=== PATIENT | female | born 1965 | race Caucasian/White ===

== ENCOUNTER → 2017-07-13 | Outpatient (CLI) | payer OTHER ==
--- NOTE | 2017-07-14 07:58 | MAMMOGRAPHY REPORT ---
BILATERAL DIGITAL SCREENING MAMMOGRAM TOMOSYNTHESIS WITH CAD: 07/13/2017 CLINICAL HISTORY: Routine screening. TECHNIQUE: Breast tomosynthesis in addition to standard 2D mammography was performed. Current study was also evaluated with a Computer Aided Detection (CAD) system. COMPARISON: Comparison is made to exams dated: 10/16/2015 mammogram, 09/06/2014 mammogram, 08/29/2013 mammogram, 08/24/2012 mammogram, 11/04/2010 mammogram - [facility], and 02/26/2009. BREAST COMPOSITION: There are scattered areas of fibroglandular density in both breasts. FINDINGS: There is a stable intramammary lymph node in the 9:00 right breast. No suspicious mass, a rchitectural distortion or cluster of microcalcifications is seen. IMPRESSION: ACR BI-RADS CATEGORY 1: NEGATIVE There is no mammographic evidence of malignancy. A 1 year screening mammogram is recommended. The pa tient will receive written notification of the results. Approximately 10% of breast cancers are not detected with mammography. A negative mammographic report should not delay biopsy if a clinically suggestive mass is present. Viky Clemons M.D. ay/:07/13/2017 21:11:34 Labor Relations Teacher: Tonya DUBOSE(Kenn)(Wendy), [facility] letter sent: Normal 1/2 BI-RADS Code: ACR BI-RADS Category 1: Negative
== END | disposition home or self-care (01) ==
LOC: C.MAMM 13:48
PROVIDERS: ATTEND Obstetrics & Gynecology
DX: Z12.31 Encounter for screening mammogram for malignant neoplasm of breast (principal)

== ENCOUNTER 2023-05-19 20:43 | Inpatient (IN) ==
[2023-05-19] MEDS ORDERED: FAMOTIDINE 20MG IV PUSH 20 MG/5 ML SYR IV STA (21:01)
[2023-05-19] MEDS ORDERED: PROMETHAZINE 12.5 MG/50.5 ML BAG IV STA (21:01)
[2023-05-19] MEDS ORDERED: diphenhydrAMINE 50 MG/ML VIAL IV STA (21:01)
[2023-05-19] MEDS ORDERED: SODIUM CHLORIDE 0.9% 1,000 ML IV ONE (21:02)
--- NOTE | 2023-05-19 21:10 | Emergency Department Note ---
Impression & Plan Malrotation of intestine with midgut volvulus, Generalized abdominal pain, Intractable nausea and vomiting ED Provider Note NAME: TYRON RAY AGE: 57 SEX: F ARRIVES VIA: Ambulance INFORMANT: Patient ED PROVIDER(S): Sarath Britton MD CHIEF COMPLAINT: Abdominal pain, n/v. PLAN: Disposition: Admit MEDICAL DECISION MAKING: The patient is a pleasant 57-year-old woman with a past medical history of PCOS, migraines, hypertension, anxiety, lupus who presents to the emergency department via EMS and accompanied by her for evaluation of acute onset abdominal pain with associated nausea and vomiting that occurred after eating ice cream tonight prior to arrival. Patient received 4 mg of Zofran and 15 mg of Toradol by EMS without improvement. Patient reports feeling well prior to this evening. She denies any recent fevers, cough, congestion, diarrhea. She has any urinary symptoms. She reports a history of section remotely and otherwise no history of abdominal surgeries. Patient reports she did move her bowels after her abdominal pain began and this was normal and anticipated she would feel relief but did not. She denies prior history of similar episodes in the past. On my evaluation the patient is uncomfortable but no acute distress, afebrile stable vital signs. She appears clinically dry. She has generalized abdominal tenderness without guarding or rebound. Treatment was initiated with IV fluid hydration, famotidine, Phenergan and IV Benadryl with some improvement in ability to rest. Pain had returned prior to CT imaging and so additional treatment with Phenergan and dicyclomine provided. EKG is without overt acute ischemia. Chest x-ray negative for acute cardiopulmonary process and no free air underneath the diaphragm. WBC 12.6 K, with neutrophil predominance though no left shift nonspecific. H/H and platelets within normal limits. Chemistry with bicarbonate of 19 and anion gap 14, nonspecific consistent with patient's clinically dry appearance. LFTs are within normal limits. Lipase is marginally above normal at 86, nonspecific. UA without evidence of infection but with 1+ ketones consistent with patient's clinically dry appearance. CT of the abdomen pelvis was performed and demonstrates congenital malrotation/nonrotation of the bowel and note of marked distention of the stomach secondary to a midgut volvulus with inflammation surrounding the distal stomach with wall thickening concerning for ischemia though nonspecific. CT findings were reviewed with stat rad radiology. Findings reviewed with the patient and her at the bedside. IV fluid hydration and IV morphine were administered for additional pain relief. Nasogastric tube reviewed with the patient and agrees with placement. Case was discussed with general surgery on-call, Dr. Ricci. Appreciate consultation. Patient will be taken to the OR for surgical intervention. Triage Nursing notes reviewed and agree them. Prior/outside medical records reviewed Vital Signs: reviewed Differential diagnosis: Gastroenteritis, food borne illness, infections, appendicitis, diverticulitis, inflammatory bowel disease, obstruction, GI bleed, biliary pathology, volvulus, as well as other pathologies. ER treatment provided: See below. Diagnostics interpreted by me: ECG: Normal sinus rhythm, 83 bpm, no ectopy, no overt ST elevation or depression, QTc 488, QRS 76. Cardiac Monitoring: An order for continuous cardiac monitoring was placed and demonstrated Normal sinus rhythm, 83 bpm, no ectopy. Laboratory studies: See below Imaging studies: See below Consultation(s): Dr. Ricci, general surgery on-call. HPI: The patient is a pleasant 57-year-old woman with a past medical history of PCOS, migraines, hypertension, anxiety, lupus who presents to the emergency department via EMS and accompanied by her for evaluation of acute onset abdominal pain with associated nausea and vomiting that occurred after eating ice cream tonight prior to arrival. Patient received 4 mg of Zofran and 15 mg of Toradol by EMS without improvement. Patient reports feeling well prior to this evening. She denies any recent fevers, cough, congestion, diarrhea. She has any urinary symptoms. She reports a history of section remotely and otherwise no history of abdominal surgeries. Patient reports she did move her bowels after her abdominal pain began and this was normal and anticipated she would feel relief but did not. She denies prior history of similar episodes in the past. ROS: See above HPI for pertinent positives & negatives. A total of 10 systems reviewed and were otherwise negative. VITALS:See Below PHYSICAL EXAMINATION: GENERAL: Awake, alert, uncomfortable-appearing, in no distress HENT: Normocephalic, atraumatic. Oropharynx with dry mucous membranes and otherwise unremarkable. EYES: Normal conjunctiva. Sclera non-icteric. NECK: Supple. No nuchal rigidity. FROM. No JVD. RESPIRATORY: Clear to auscultation. CARDIAC: Regular rate, normal rhythm. Extremities warm and well perfused. Pulses equal. ABDOMEN: Soft, non-distended. Mild generalized abdominal tenderness to palpation. No rebound or guarding. No masses. RECTAL: Deferred. MUSCULOSKELETAL: Chest examination reveals no tenderness. The back is symmetrical on inspection without obvious abnormality. There is no CVA tenderness to palpation. No joint edema. LOWER EXTREMITIES: Calves are equal size bilaterally and non-tender. No edema. No discoloration. NEURO: Normal sensorium. No sensory or motor deficits noted. SKIN: No rash or jaundice noted. ED COURSE: Critical Care: I have personally spent greater than 35 minutes of critical care time in the direct management of this patient. This includes bedside care, interpretation of diagnostic studies, and testing, discussion with consultants, patient, and family members, and other required patient management activities. This 35 minutes is in excess of all separately billable procedures. Sarath Britton MD Past Med/Surg History Medical History Cellulitis of right lower leg Hypertension Surgical History History of section History of tooth extraction WISDOM TEETH S/P laser trabeculoplasty of eye BILT EYES Family History Sister Family history of irritable bowel syndrome CROHNS Crohn's disease Vascular access prohibited in both lower extremities Family/Other Family history of irritable bowel syndrome MATERNAL AUNT CROHN'S Family/Other Family history of irritable bowel syndrome MATERNAL COUSINS CROHN'S DISEASE Grandmother (Maternal) Myocardial infarction Mother Lung cancer Father Basal cell carcinoma Melanoma Dementia Vascular access prohibited in both lower extremities Brother Meniere disease Vascular access prohibited in both lower extremities Denies family history of Colon cancer Ovarian cancer Prostate cancer Breast cancer Social History Smoking Status: Smoker, status unknown Second Hand Exposure: No (MOTHER SMOKED); Do You Dip or Chew Tobacco: No; Hx Alcohol Use: Yes Alcohol type: wine Alcohol Intake Frequency: Monthly or Less Hx Substance Use: No Preferred Language: [place] Communication Ability: Effective Visual Impairment: No Limitations Hearing Ability: Hard of Hearing Soil Fertility Specialist Required: No Beliefs That Will Affect Care: None marital status: Current Living Situation: Spouse and Family current occupational status: employed 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 How many Children do You have: 1 Feels Safe at Home: Yes Childhood Exposure to Second-Hand Smoke: Yes Diet: regular Diet Comment: Low sugar caffeine: Yes during the past year weight has: remained stable Dental Care, Regularly: Yes Physical Activity Frequency: Daily Seatbelt Use: always Sunscreen Use: Yes Assistive Devices: Glasses Allergies Allergies Allergy/AdvReac Type Severity Reaction Status Date / Time cephalexin [From Keflex] Allergy Intermediate Hives Verified 05/19/23 21:20 red dye Allergy Intermediate Hives Verified 05/19/23 21:20 Sulfa (Sulfonamide Allergy Intermediate Hives Verified 05/19/23 21:20 Antibiotics) thimerosal Allergy Mild ITCHY, RED Verified 05/19/23 21:20 EYES Home Meds Home Medications Medication Instructions Recorded Confirmed nystatin-triamcinolone 100,000 1 applic topical BID PRN Itching 06/03/1804/22 unit/gram-0.1 % topical ointment omega 9-gpg-who-fish oil 1,000 mg 1 tab PO QPM 06/03/18 05/19/23 (120 mg-180 mg) capsule (Fish Oil) albuterol sulfate 90 mcg/actuation 1 - 2 puff inhalation Q4 PRN 02/20/19 05/19/23 aerosol inhaler (ProAir HFA) Shortness Of Breath Or Wheezing metformin 500 mg tablet 500 mg PO TID 05/19/23 05/19/23 Previous Rx's Medication Instructions Recorded venlafaxine 75 mg tablet 75 mg PO BID Anxiety #180 tabs 11/18/22 spironolactone 50 mg tablet 50 mg PO .COMPLEX #90 tabs 03/24/23 Results & Data (ED) Vital Signs Vital Signs - 24 hr 05/19/23 20:53 05/19/23 20:54 05/19/23 22:10 Pulse Rate 70 70 Pulse Rate [Apical] 77 Pulse Rate from SpO2 Sensor Pulse Rhythm Pulse Rhythm [Apical] Regular Pulse Strength [Apical] Normal Respiratory Rate 18 17 Respiratory Effort / Characteristics Non-Labored Non-Labored Spontaneous Respiratory Depth Normal Normal Blood Pressure 109/72 Blood Pressure [Right Arm] 109/72 Blood Pressure Mean 84 Blood Pressure Mean [Right Arm] 84 Blood Pressure Position [Right Arm] Lying Pulse Oximetry 96 100 Oxygen Delivery Method Room Air Room Air Sepsis Recent Fever Within 48 Hours No Sepsis New/Unexplained Change in Mental Status No Sepsis Action Taken by Nursing No Action Required 05/19/23 22:10 05/19/23 20:54 05/19/23 21:00 Pulse Rate 78 68 75 Pulse Rate [Apical] Pulse Rate from SpO2 Sensor Pulse Rhythm Regular Pulse Rhythm [Apical] Pulse Strength [Apical] Respiratory Rate 17 25 H 19 Respiratory Effort / Characteristics Respiratory Depth Blood Pressure Blood Pressure [Right Arm] Blood Pressure Mean Blood Pressure Mean [Right Arm] Blood Pressure Position [Right Arm] Pulse Oximetry 100 Oxygen Delivery Method Room Air Sepsis Recent Fever Within 48 Hours Sepsis New/Unexplained Change in Mental Status Sepsis Action Taken by Nursing 05/19/23 21:30 05/19/23 22:00 05/19/23 22:37 Pulse Rate 88 78 71 Pulse Rate [Apical] Pulse Rate from SpO2 Sensor 88 79 Pulse Rhythm Pulse Rhythm [Apical] Pulse Strength [Apical] Respiratory Rate 18 24 19 Respiratory Effort / Characteristics Respiratory Depth Blood Pressure Blood Pressure [Right Arm] Blood Pressure Mean Blood Pressure Mean [Right Arm] Blood Pressure Position [Right Arm] Pulse Oximetry 97 100 Oxygen Delivery Method Sepsis Recent Fever Within 48 Hours Sepsis New/Unexplained Change in Mental Status Sepsis Action Taken by Nursing 05/19/23 23:00 05/19/23 23:39 05/20/23 00:00 Pulse Rate 70 75 71 Pulse Rate [Apical] Pulse Rate from SpO2 Sensor 70 75 68 Pulse Rhythm Pulse Rhythm [Apical] Pulse Strength [Apical] Respiratory Rate 15 17 15 Respiratory Effort / Characteristics Respiratory Depth Blood Pressure 160/82 H Blood Pressure [Right Arm] Blood Pressure Mean 108 Blood Pressure Mean [Right Arm] Blood Pressure Position [Right Arm] Pulse Oximetry 100 100 100 Oxygen Delivery Method Sepsis Recent Fever Within 48 Hours Sepsis New/Unexplained Change in Mental Status Sepsis Action Taken by Nursing 05/20/23 00:30 05/20/23 01:00 05/20/23 01:01 Pulse Rate 78 66 67 Pulse Rate [Apical] Pulse Rate from SpO2 Sensor 78 67 67 Pulse Rhythm Pulse Rhythm [Apical] Pulse Strength [Apical] Respiratory Rate 18 13 13 Respiratory Effort / Characteristics Respiratory Depth Blood Pressure Blood Pressure [Right Arm] Blood Pressure Mean Blood Pressure Mean [Right Arm] Blood Pressure Position [Right Arm] Pulse Oximetry 97 100 100 Oxygen Delivery Method Sepsis Recent Fever Within 48 Hours Sepsis New/Unexplained Change in Mental Status Sepsis Action Taken by Nursing 05/20/23 01:01 Pulse Rate Pulse Rate [Apical] Pulse Rate from SpO2 Sensor Pulse Rhythm Pulse Rhythm [Apical] Pulse Strength [Apical] Respiratory Rate Respiratory Effort / Characteristics Respiratory Depth Blood Pressure 177/88 H Blood Pressure [Right Arm] Blood Pressure Mean 117 Blood Pressure Mean [Right Arm] Blood Pressure Position [Right Arm] Pulse Oximetry Oxygen Delivery Method Sepsis Recent Fever Within 48 Hours Sepsis New/Unexplained Change in Mental Status Sepsis Action Taken by Nursing Laboratory Data Attestation: I reviewed the patient's lab results. 05/19/23 21:50 05/19/23 21:50 Lab Results 05/19/23 05/19/23 05/19/23 Range/Units 21:50 21:50 22:47 WBC 12.63 H (4.8-10.8) K/ul RBC 4.82 (4.20-5.40) M/uL Hgb 14.3 (12.0-16.0) g/dl Hct 41.0 (37.0-47.0) % MCV 85.1 (80.0-100.0) fL MCH 29.7 (25.0-34.0) pg MCHC 34.9 (32.0-36.0) g/dL RDW Std Deviation 40.5 (36.4-46.3) fL RDW Coeff of Slim 13.1 (11.5-14.5) % Plt Count 240 (130-400) K/uL MPV 9.8 (9.4-12.4) fL Immature Gran % (Auto) 1.0 % Neut % (Auto) 83.9 % Lymph % (Auto) 9.2 % [place] % (Auto) 4.9 % Eos % (Auto) 0.5 % Baso % (Auto) 0.5 % Neut # (Auto) 10.61 H (1.40-6.50) K/uL Lymph # (Auto) 1.16 L (1.20-3.40) K/uL [place] # (Auto) 0.62 H (0.11-0.59) K/uL Eos # (Auto) 0.06 (0.00-0.50) K/uL Baso # (Auto) 0.06 (0.00-0.20) K/uL Immature Gran # (Auto) 0.12 (0.01-0.20) K/uL Sodium 137 (136-145) mmol/L Potassium 3.3 L (3.5-5.1) mmol/L Chloride 104 (98-107) mmol/L Carbon Dioxide 19 L (21-32) mmol/L Anion Gap 14 H (3-11) BUN 14 (6-23) mg/dl Creatinine 0.83 (0.6-1.2) mg/dl Est Cr Clr Drug Dosing 59.9 ml/min Est GFR ( Amer) 91.4 ml/min Est GFR (Non-Af Amer) 78.8 ml/min BUN/Creatinine Ratio 16.9 (10-20) Glucose 160 H (70-99(Fasting)) mg/dl Calcium 9.1 (8.6-10.3) mg/dl Total Bilirubin 0.5 (0.2-1.0) mg/dl Direct Bilirubin 0.1 (0-0.2) mg/dl AST 16 (13-39) U/L ALT 11 (7-52) U/L Alkaline Phosphatase 52 (34-104) U/L Total Protein 7.2 (6.0-8.3) gm/dl Albumin 4.6 (3.4-5.0) gm/dl Globulin 2.6 (2.5-4.0) gm/dl Albumin/Globulin Ratio 1.8 (0.9-2) Lipase 86 H (11-82) U/L Urine Color Yellow Urine Appearance Clear (Clear) Urine pH 8.0 H (4.5-7.5) Ur Specific [place] 1.009 (1.000-1.030) Urine Protein Negative (Negative) Urine Glucose (UA) Negative (Negative) Urine Ketones 1+ H (Negative) Urine Blood Negative (Negative) Urine Nitrite Negative (Negative) Urine Bilirubin Negative (Negative) Urine Urobilinogen Negative (Negative) Ur Leukocyte Esterase Negative (Negative) Administered Medications Discontinued Medications Dicyclomine HCl (Dicyclomine Hcl 10 Mg/Ml 2 Ml Amp/Vial) 20 mg IM NOW ONE Stop: 05/19/23 23:00 Last Admin: 05/19/23 23:18 Dose: 20 mg Documented By: LUIS Diphenhydramine HCl (Diphenhydramine 50 Mg/Ml Vial) 25 mg IV NOW STA Stop: 05/19/23 21:02 Last Admin: 05/19/23 21:10 Dose: 25 mg Documented By: MELISA Famotidine (Pepcid 20mg Iv Push) 20 mg in 5 mls @ 2.5 mls/min IV NOW STA Stop: 05/19/23 21:02 Last Admin: 05/19/23 21:10 Dose: 2.5 mls/min Documented By: MELISA Promethazine HCl (Phenergan) 12.5 mg in 50.5 mls @ 202 mls/hr IV NOW STA Stop: 05/19/23 21:15 Last Infusion: 05/19/23 23:36 Dose: 0 mls/hr Documented By: Admin: 05/19/23 21:10 Dose: 202 mls/hr Documented By: MELISA Sodium Chloride (Nss 1000ml) 1,000 mls @ 999 mls/hr IV .Q1H1M ONE Stop: 05/19/23 22:02 Last Infusion: 05/19/23 23:36 Dose: 0 mls/hr Documented By: Admin: 05/19/23 21:10 Dose: 999 mls/hr Documented By: MELISA Lactated Ringer's (Lr) 1,000 mls @ 999 mls/hr IV .Q1H1M ONE Stop: 05/20/23 01:27 Last Admin: 05/20/23 01:27 Dose: 999 mls/hr Documented By: LUIS Metronidazole (Flagyl) 500 mg in 100 mls @ 100 mls/hr IV NOW STA; Protocol Stop: 05/20/23 02:13 Last Admin: 05/20/23 01:27 Dose: 100 mls/hr Documented By: LUIS Ioversol (Optiray 320 100ml) 90 ml IV ONCE ONE Stop: 05/19/23 23:29 Last Admin: 05/19/23 23:28 Dose: 90 ml Documented By: JONATHAN Lidocaine HCl (Lidocaine 2% Jelly 5 Ml Tube) 5 ml EXT NOW ONE Stop: 05/20/23 00:36 Last Admin: 05/20/23 00:42 Dose: 5 ml Documented By: ADRIANNE Morphine Sulfate (Morphine Sulfate 4 Mg/Ml 1 Ml Carp\Vial) 4 mg IV NOW STA Stop: 05/19/23 23:52 Last Admin: 05/20/23 00:09 Dose: 4 mg Documented By: LUIS Morphine Sulfate (Morphine Sulfate 4 Mg/Ml 1 Ml Carp\Vial) 4 mg IV NOW STA Stop: 05/20/23 00:36 Last Admin: 05/20/23 00:41 Dose: 4 mg Documented By: [facility] Ondansetron HCl (Ondansetron Inj 2 Mg/Ml 2 Ml Vial) 4 mg IV NOW STA Stop: 05/19/23 23:01 Last Admin: 05/19/23 23:19 Dose: 4 mg Documented By: LUIS Imaging Data Radiologist's Impression: Chest X-Ray 05/19/23 21:10 SINGLE VIEW CHEST CLINICAL HISTORY: Generalized abdominal pain. FINDINGS: An AP, portable, upright chest radiograph is obtained. No prior studies are available for comparison at the time of dictation a The examination is degraded by portable technique, apical lordotic positioning, and patient rotation. The cardiomediastinal silhouette is unremarkable. The lungs and pleural spaces are clear. No pneumothorax is seen. The skeletal structures are osteopenic. There are chronic/healed bilateral rib fractures. IMPRESSION: No active disease in the chest. ACT 112: Negative or not required by law. Electronically signed by: Juan Luis Weiner M.D. 05/19/2023 9:39 PM Abdomen/Pelvis CT 05/19/23 21:17 CR Exam(s): CT ABDOMEN + PELVIS With Contrast IV Amt: 90 ML OPTIRAY 320 EXAM: CT Abdomen and Pelvis With Intravenous Contrast CLINICAL HISTORY: Reason for exam: abd pain, n/v.. TECHNIQUE: Axial computed tomography images of the abdomen and pelvis with intravenous contrast. CTDI is 13.74 mGy and DLP is 601.79 mGy-cm. Automated exposure control was utilized for the study. A dose lowering technique was utilized adhering to the principles of ALARA. CONTRAST: Patient received 90 ML OPTIRAY 320 of IV contrast COMPARISON: No relevant prior studies available. FINDINGS: Lung bases: Unremarkable. No mass. No consolidation. ABDOMEN: Liver: Unremarkable. No mass. Gallbladder and bile ducts: Unremarkable. No calcified stones. No ductal dilation. Pancreas: Unremarkable. No mass. No ductal dilation. Spleen: Unremarkable. No splenomegaly. Adrenals: Unremarkable. No mass. Kidneys and ureters: Unremarkable. No solid mass. No hydronephrosis. Stomach and bowel: Congenital malrotation/nonrotation of the bowel. There is marked distention of the stomach secondary to a midgut volvulus with inflammation surrounding the distal stomach with wall thickening concerning for ischemia. PELVIS: Appendix: No findings to suggest acute appendicitis. Bladder: Unremarkable. No mass. Reproductive: Unremarkable as visualized. ABDOMEN and PELVIS: Intraperitoneal space: Mild amount of free fluid. No free air. Bones/joints: No acute fracture. No dislocation. Soft tissues: Unremarkable. Vasculature: Unremarkable. No abdominal aortic aneurysm. Lymph nodes: Unremarkable. No enlarged lymph nodes. 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 Communications: Call Doctor Volvulus Electronically signed by: David Coronado M.D. 05/20/23 00:16 AM Discharge Plan Visit Data Chief Complaint: Abdominal Pain Stated Complaint: Abdominal Pain, N/V ED Provider: Sarath Britton Discharge Problem: Malrotation of intestine with midgut volvulus, Generalized abdominal pain, Intractable nausea and vomiting Patient Disposition: Being Evaluated by Surgeon Discharge Instructions Interventions: ED Discharge Assessment Last Done: 05/20/23 01:16
--- NOTE | 2023-05-19 21:40 | XRay Report ---
SINGLE VIEW CHEST CLINICAL HISTORY: Generalized abdominal pain. FINDINGS: An AP, portable, upright chest radiograph is obtained. No prior studies are available for c omparison at the time of dictation a The examination is degraded by portable technique, apical lordot ic positioning, and patient rotation. The cardiomediastinal silhouette is unremarkable. The lungs and pleural spaces are clear. No pneumothorax is seen. The skeletal structures are osteopenic. There are chronic/healed bilateral rib fractures. IMPRESSION: No active disease in the chest. ACT 112: Negative or not required by law. Electronically signed by: Juan Luis Weiner M.D. 05/19/2023 9:39 PM
[2023-05-19 22:31] LABS: Basophils # (auto) 0.06 K/uL (0.00-0.20); Basophils % (auto) 0.5 %; Eosinophils # (auto) 0.06 K/uL (0.00-0.50); Eosinophils % (auto) 0.5 %; Hemoglobin 14.3 g/dl (12.0-16.0); Immature Granulocytes # (auto) 0.12 K/uL (0.01-0.20); Lymphocytes # (auto) 1.16 K/uL (1.20-3.40); Lymphocytes % (auto) 9.2 %; Mean Corpuscular Hemoglobin 29.7 pg (25.0-34.0); Mean Corpuscular Hgb Conc 34.9 g/dL (32.0-36.0); Mean Corpuscular Volume 85.1 fL (80.0-100.0); Mean Platelet Volume 9.8 fL (9.4-12.4); Monocytes # (auto) 0.62 K/uL (0.11-0.59); Monocytes % (auto) 4.9 %; Neutrophils # (auto) 10.61 K/uL (1.40-6.50); Neutrophils % (auto) 83.9 %; Platelet Count 240 K/uL (130-400); RDW Coefficient of Variation 13.1 % (11.5-14.5); RDW Standard Deviation 40.5 fL (36.4-46.3); Red Blood Count 4.82 M/uL (4.20-5.40); White Blood Count 12.63 K/ul (4.8-10.8)
[2023-05-19 22:45] LABS: Albumin Globulin Ratio 1.8 (0.9-2); Albumin Level 4.6 gm/dl (3.4-5.0); BUN Creatinine Ratio 16.9 (10-20); Bilirubin Direct 0.1 mg/dl (0-0.2); Bilirubin,Total 0.5 mg/dl (0.2-1.0); Calcium 9.1 mg/dl (8.6-10.3); Creatinine Clr Calc Pharmacy 59.9 ml/min; Est GFR (African American) 91.4 ml/min; Est GFR (Non-African American) 78.8 ml/min; Globulin 2.6 gm/dl (2.5-4.0); Potassium 3.3 mmol/L (3.5-5.1); Total Protein 7.2 gm/dl (6.0-8.3)
[2023-05-19] MEDS ORDERED: DICYCLOMINE HCL 10 MG/ML 2 ML AMP/VIAL IM ONE (22:59)
[2023-05-19] MEDS ORDERED: ONDANSETRON INJ 2 MG/ML 2 ML VIAL IV STA (23:00)
[2023-05-19 23:04] LABS: Appearance Urine Clear (Clear); Bilirubin Urine Negative (Negative); Blood Urine Negative (Negative); Color Urine Yellow; Glucose Urine UA Negative (Negative); Ketones Urine 1+ (Negative); Leukocyte Esterase Urine Negative (Negative); Nitrite Urine Negative (Negative); Protein Urine Negative (Negative); Specific Gravity Urine 1.009 (1.000-1.030); Urobilinogen Urine Negative (Negative)
[2023-05-19] MEDS ORDERED: OPTIRAY 320 100ml IV ONE (23:28)
[2023-05-19] MEDS ORDERED: MoRPHine SULFATE 4 MG/ML 1 ML CARP\\VIAL IV STA (23:51)
--- NOTE | 2023-05-20 00:16 | CT Scan Report ---
Exam(s): CT ABDOMEN + PELVIS With Contrast IV Amt: 90 ML OPTIRAY 320 EXAM: CT Abdomen and Pelvis With Intravenous Contrast CLINICAL HISTORY: Reason for exam: abd pain, n/v.. TECHNIQUE: Axial computed tomography images of the abdomen and pelvis with intravenous contrast. CTDI is 13.74 mGy and DLP is 601.79 mGy-cm. Automated exposure control was utilized for the study. A dose lowering technique was utilized adhering to the principles of ALARA. CONTRAST: Patient received 90 ML OPTIRAY 320 of IV contrast COMPARISON: No relevant prior studies available. FINDINGS: Lung bases: Unremarkable. No mass. No consolidation. ABDOMEN: Liver: Unremarkable. No mass. Gallbladder and bile ducts: Unremarkable. No calcified stones. No ductal dilation. Pancreas: Unremarkable. No mass. No ductal dilation. Spleen: Unremarkable. No splenomegaly. Adrenals: Unremarkable. No mass. Kidneys and ureters: Unremarkable. No solid mass. No hydronephrosis. Stomach and bowel: Congenital malrotation/nonrotation of the bowel. There is marked distention of the stomach secondary to a midgut volvulus with inflammation surrounding the distal stomach with wall thickening concerning for ischemia. PELVIS: Appendix: No findings to suggest acute appendicitis. Bladder: Unremarkable. No mass. Reproductive: Unremarkable as visualized. ABDOMEN and PELVIS: Intraperitoneal space: Mild amount of free fluid. No free air. Bones/joints: No acute fracture. No dislocation. Soft tissues: Unremarkable. Vasculature: Unremarkable. No abdominal aortic aneurysm. Lymph nodes: Unremarkable. No enlarged lymph nodes. 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 Communications: Call Doctor Volvulus Electronically signed by: David Coronado M.D. 05/20/23 00:16 AM
[2023-05-20] MEDS ORDERED: LACTATED RINGER'S 1,000 ML IV ONE (00:27)
[2023-05-20] MEDS ORDERED: LIDOCAINE 2% JELLY 5 ML TUBE EXT ONE (00:35)
[2023-05-20] MEDS ORDERED: MoRPHine SULFATE 4 MG/ML 1 ML CARP\\VIAL IV STA (00:35)
--- NOTE | 2023-05-20 00:45 | Anesthesiology Consultation ---
Date of Service May 20, 2023 Assessment & Plan Chart Review Chart Review: Acceptable Risk for Surgery Consults Requested none ASA ASA2E Proposed Anesthesia Anesthesia Type: General Risk / Benefits Reviewed With: PT / POA / Parent / Guardian, Accepts Plan and Informed Consent Obtained History Height/Weight Height: 5 ft 2 in Weight: 58.8 kg Allergies Allergy/AdvReac Type Severity Reaction Status Date / Time cephalexin [From Keflex] Allergy Intermediate Hives Verified 05/19/23 21:20 red dye Allergy Intermediate Hives Verified 05/19/23 21:20 Sulfa (Sulfonamide Allergy Intermediate Hives Verified 05/19/23 21:20 Antibiotics) thimerosal Allergy Mild ITCHY, RED Verified 05/19/23 21:20 EYES Medications Home Medications Medication Instructions Recorded Confirmed Last Taken nystatin-triamcinolone 100,000 1 applic topical BID PRN Itching 06/03/18 05/19/23 Unknown unit/gram-0.1 % topical ointment omega 0-tzy-mfl-fish oil 1,000 mg 1 tab PO QPM 06/03/18 05/19/23 05/19/23 (120 mg-180 mg) capsule (Fish Oil) albuterol sulfate 90 mcg/actuation 1 - 2 puff inhalation Q4 PRN 02/20/19 05/19/23 Unknown aerosol inhaler (ProAir HFA) Shortness Of Breath Or Wheezing venlafaxine 75 mg tablet 75 mg PO BID Anxiety #180 tabs 11/18/22 05/19/23 05/19/23 spironolactone 50 mg tablet 50 mg PO .COMPLEX #90 tabs 03/24/23 05/19/23 05/19/23 metformin 500 mg tablet 500 mg PO TID 05/19/23 05/19/23 05/19/23 NPO Date Last Intake of Fluids: 05/19/23 Time Last Intake of Fluids: 18:00 Date Last Intake of Solids: 05/19/23 Time Last Intake of Solids: 18:00 Past Medical History Medical History Cellulitis of right lower leg Hypertension Exercise / Class Metabolic Activity II 4-5 Yardwork/Stairs/Walk up hill Past Family History Family History Sister Family history of irritable bowel syndrome CROHNS Crohn's disease Vascular access prohibited in both lower extremities Family/Other Family history of irritable bowel syndrome MATERNAL AUNT CROHN'S Family/Other Family history of irritable bowel syndrome MATERNAL COUSINS CROHN'S DISEASE Grandmother (Maternal) Myocardial infarction Mother Lung cancer Father Basal cell carcinoma Melanoma Dementia Vascular access prohibited in both lower extremities Brother Meniere disease Vascular access prohibited in both lower extremities Denies family history of Colon cancer Ovarian cancer Prostate cancer Breast cancer Past Surgical History Surgical History History of section History of tooth extraction WISDOM TEETH S/P laser trabeculoplasty of eye BILT EYES Past Anesthesia History No Hx of Anesthesia Complications and No Family Hx of Anesthesia Complications History of PONV No Hx of PONV and No Hx of Motion Sickness Social History Smoking Status: Smoker, status unknown Do You Dip or Chew Tobacco: No Hx Alcohol Use: Yes Alcohol type: wine alcohol intake frequency: holidays/special occasions only Hx Substance Use: No substance use type: does not use Physical Exam Vital Signs Last Vital Signs Pulse 75 05/19/23 23:39 Resp 17 05/19/23 23:39 BP 160/82 H 05/19/23 23:39 Pulse Ox 100 05/19/23 23:39 O2 Del Method Room Air 05/19/23 22:10 ENMT Mouth: no dentition abnormality Thyromental Distance: > or= 3.5 Finger Breadths Mallampati Class: II Neck normal visual inspection Respiratory normal respiratory effort Auscultation: lungs clear to auscultation bilaterally Cardiovascular Rate/Rhythm: regular rate and regular rhythm Testing Laboratory Results 05/19/23 21:50 05/19/23 21:50 Urine Color Yellow 05/19/23 22:47 Urine Appearance Clear (Clear) 05/19/23 22:47 Urine pH 8.0 (4.5-7.5) H 05/19/23 22:47 Ur Specific [place] 1.009 (1.000-1.030) 05/19/23 22:47 Urine Protein Negative (Negative) 05/19/23 22:47 Urine Glucose (UA) Negative (Negative) 05/19/23 22:47 Urine Ketones 1+ (Negative) H 05/19/23 22:47 Urine Nitrite Negative (Negative) 05/19/23 22:47 Ur Leukocyte Esterase Negative (Negative) 05/19/23 22:47 Electrocardiogram Date: 05/19/23 Findings: + NSR @ (83 bpm) Chest X-Ray Date: 05/19/23 Findings: + NAD Other Testing CT Abd/pelvis 05/20/23 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
[2023-05-20] MEDS ORDERED: ONDANSETRON INJ 2 MG/ML 2 ML VIAL IV PRN ×2 (00:50→05:38)
[2023-05-20] MEDS ORDERED: fentaNYL citrate PF 100 MCG/2 ML VIAL IV PRN (00:50)
[2023-05-20] MEDS ORDERED: ePHEDrine sulfate 50 MG/ML AMP IV PRN (00:50)
[2023-05-20] MEDS ORDERED: HYDROmorphone INJ 1 MG/ML SYRINGE IV PRN (00:50)
[2023-05-20] MEDS ORDERED: ATROPINE SULFATE 0.1 MG/ML 10ML SYR IV PRN (00:50)
[2023-05-20] MEDS ORDERED: PROPOFOL IV EMULSION 10 MG/ML 20 ML VIAL IV ONE (01:05)
[2023-05-20] MEDS ORDERED: SUCCINYLCHOLINE CHLORIDE 20 MG/ML 10 ML VIAL IV ONE (01:05)
[2023-05-20] MEDS ORDERED: fentaNYL citrate PF 100 MCG/2 ML VIAL ONE (01:06)
[2023-05-20] MEDS ORDERED: LIDOCAINE 2% 2 ML VIAL/AMP(20MG/ML) INFIL ONE (01:06)
[2023-05-20] MEDS ORDERED: metroNIDAZOLE 500 MG/100 ML BAG IV STA (01:14)
--- NOTE | 2023-05-20 01:14 | History & Physical Report ---
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 Mary's procedure discussed with untorsion of the small bowel, division of mary's bands, possible appendectomy, repositioning of bowel on right, colon on left of abdomen. Explained possibility of bowel ischemia and need for resection or even possible need for second look procedure if a significant portion of the bowel is ischemic. Risks of bleeding, infection, hernia, injury to other structure, anastamotic leak all reviewed. Consent signed. For OR tonight. (2) Hypokalemia: Plan: will replete. (3) Hypertension: Plan: will resume medications once able. History of Present Illness Chief Complaint: abdominal pain and vomiting Primary Care Provider: Christiano Sutherland, DO 57 yr old woman with sharp onset of generalized abdominal pain after eating some ice cream. Sharp, crampy, intense - worst in upper abdomen. Had both nausea and intractable vomiting. No fevers/ chills. No radiation of the pain. No exacerbating or relieving factors. Only prior abdominal operation was C-sxn. Otherwise relatively healthy. Allergies Allergy/AdvReac Type Severity Reaction Status Date / Time cephalexin [From Keflex] Allergy Intermediate Hives Verified 05/19/23 21:20 red dye Allergy Intermediate Hives Verified 05/19/23 21:20 Sulfa (Sulfonamide Allergy Intermediate Hives Verified 05/19/23 21:20 Antibiotics) thimerosal Allergy Mild ITCHY, RED Verified 05/19/23 21:20 EYES Home Medications Medication Instructions Recorded Confirmed Type nystatin-triamcinolone 100,000 1 applic topical BID PRN Itching 06/03/18 05/19/23 History unit/gram-0.1 % topical ointment omega 2-iqz-bgm-fish oil 1,000 mg 1 tab PO QPM 06/03/18 05/19/23 History (120 mg-180 mg) capsule (Fish Oil) albuterol sulfate 90 mcg/actuation 1 - 2 puff inhalation Q4 PRN 02/20/19 05/19/23 History aerosol inhaler (ProAir HFA) Shortness Of Breath Or Wheezing venlafaxine 75 mg tablet 75 mg PO BID Anxiety #180 tabs 11/18/22 05/19/23 Rx spironolactone 50 mg tablet 50 mg PO .COMPLEX #90 tabs 03/24/23 05/19/23 Rx metformin 500 mg tablet 500 mg PO TID 05/19/23 05/19/23 History Past Med/Surg History Medical History Cellulitis of right lower leg Hypertension Surgical History History of section History of tooth extraction WISDOM TEETH S/P laser trabeculoplasty of eye BILT EYES Family History Sister Family history of irritable bowel syndrome CROHNS Crohn's disease Vascular access prohibited in both lower extremities Family/Other Family history of irritable bowel syndrome MATERNAL AUNT CROHN'S Family/Other Family history of irritable bowel syndrome MATERNAL COUSINS CROHN'S DISEASE Grandmother (Maternal) Myocardial infarction Mother Lung cancer Father Basal cell carcinoma Melanoma Dementia Vascular access prohibited in both lower extremities Brother Meniere disease Vascular access prohibited in both lower extremities Denies family history of Colon cancer Ovarian cancer Prostate cancer Breast cancer Social History Smoking Status: Smoker, status unknown Second Hand Exposure: No (MOTHER SMOKED); Do You Dip or Chew Tobacco: No; Hx Alcohol Use: Yes Alcohol type: wine Alcohol Intake Frequency: Monthly or Less Hx Substance Use: No Preferred Language: Icelandic Communication Ability: Effective Visual Impairment: No Limitations Hearing Ability: Hard of Hearing Type Disk Quality Control Supervisor Required: No Beliefs That Will Affect Care: None marital status: Current Living Situation: Spouse and Family current occupational status: employed current occupation: [employer] How many Children do You have: 1 Feels Safe at Home: Yes Childhood Exposure to Second-Hand Smoke: Yes Diet: regular Diet Comment: Low sugar caffeine: Yes during the past year weight has: remained stable Dental Care, Regularly: Yes Physical Activity Frequency: Daily Seatbelt Use: always Sunscreen Use: Yes Assistive Devices: Glasses Review of Systems Review of Systems: All systems reviewed & are unremarkable except as noted in HPI & below Physical Exam Constitutional: WD/WN, vitals as above Eyes: + anicteric sclerae Neck: normal visual inspection and trachea midline Respiratory: normal respiratory effort, lungs clear to auscultation Cardiovascular: RRR, no murmur, no edema Gastrointestinal (Abdomen): Inspection/Auscultation: abdomen normal to inspection, + abdomen distended (epigastric) and + hypoactive bowel sounds Percussion/Palpation: + abdomen tender (upper mid abdomen ), + guarding (upper mid abdomen) and abdomen soft; no hernia and no abdominal mass Musculoskeletal: Extremities: extremities normal to inspection; no cyanosis Neurologic: awake; no focal motor deficits Psychiatric: A+Ox3, euthymic affect Results & Data Results & Data Vital Signs (Past 12 Hours) Vital Signs Pulse Pulse Resp BP BP Pulse Ox O2 Del Method 05/19/23 23:39 75 17 160/82 H 100 05/19/23 23:00 70 15 100 05/19/23 22:37 71 19 05/19/23 22:00 78 24 100 05/19/23 21:30 88 18 97 05/19/23 21:00 75 19 05/19/23 20:54 68 25 H 05/19/23 22:10 78 17 100 Room Air 05/19/23 22:10 77 17 109/72 100 Room Air 05/19/23 20:54 70 05/19/23 20:53 70 18 109/72 96 Room Air Laboratory Results 05/19/23 05/19/23 05/19/23 Range/Units 22:47 21:50 21:50 WBC 12.63 H (4.8-10.8) K/ul RBC 4.82 (4.20-5.40) M/uL Hgb 14.3 (12.0-16.0) g/dl Hct 41.0 (37.0-47.0) % MCV 85.1 (80.0-100.0) fL MCH 29.7 (25.0-34.0) pg MCHC 34.9 (32.0-36.0) g/dL RDW Std Deviation 40.5 (36.4-46.3) fL RDW Coeff of Slim 13.1 (11.5-14.5) % Plt Count 240 (130-400) K/uL MPV 9.8 (9.4-12.4) fL Immature Gran % (Auto) 1.0 % Neut % (Auto) 83.9 % Lymph % (Auto) 9.2 % [place] % (Auto) 4.9 % Eos % (Auto) 0.5 % Baso % (Auto) 0.5 % Neut # (Auto) 10.61 H (1.40-6.50) K/uL Lymph # (Auto) 1.16 L (1.20-3.40) K/uL [place] # (Auto) 0.62 H (0.11-0.59) K/uL Eos # (Auto) 0.06 (0.00-0.50) K/uL Baso # (Auto) 0.06 (0.00-0.20) K/uL Immature Gran # (Auto) 0.12 (0.01-0.20) K/uL Sodium 137 (136-145) mmol/L Potassium 3.3 L (3.5-5.1) mmol/L Chloride 104 (98-107) mmol/L Carbon Dioxide 19 L (21-32) mmol/L Anion Gap 14 H (3-11) BUN 14 (6-23) mg/dl Creatinine 0.83 (0.6-1.2) mg/dl Est Cr Clr Drug Dosing 59.9 ml/min Est GFR ( Amer) 91.4 ml/min Est GFR (Non-Af Amer) 78.8 ml/min BUN/Creatinine Ratio 16.9 (10-20) Glucose 160 H (70-99(Fasting)) mg/dl Calcium 9.1 (8.6-10.3) mg/dl Total Bilirubin 0.5 (0.2-1.0) mg/dl Direct Bilirubin 0.1 (0-0.2) mg/dl AST 16 (13-39) U/L ALT 11 (7-52) U/L Alkaline Phosphatase 52 (34-104) U/L Total Protein 7.2 (6.0-8.3) gm/dl Albumin 4.6 (3.4-5.0) gm/dl Globulin 2.6 (2.5-4.0) gm/dl Albumin/Globulin Ratio 1.8 (0.9-2) Lipase 86 H (11-82) U/L Urine Color Yellow Urine Appearance Clear (Clear) Urine pH 8.0 H (4.5-7.5) Ur Specific [place] 1.009 (1.000-1.030) Urine Protein Negative (Negative) Urine Glucose (UA) Negative (Negative) Urine Ketones 1+ H (Negative) Urine Blood Negative (Negative) Urine Nitrite Negative (Negative) Urine Bilirubin Negative (Negative) Urine Urobilinogen Negative (Negative) Ur Leukocyte Esterase Negative (Negative) Diagnostic Findings EXAM: CT Abdomen and Pelvis With Intravenous Contrast CLINICAL HISTORY: Reason for exam: abd pain, n/v.. TECHNIQUE: Axial computed tomography images of the abdomen and pelvis with intravenous contrast. CTDI is 13.74 mGy and DLP is 601.79 mGy-cm. Automated exposure control was utilized for the study. A dose lowering technique was utilized adhering to the principles of ALARA. CONTRAST: Patient received 90 ML OPTIRAY 320 of IV contrast COMPARISON: No relevant prior studies available. FINDINGS: Lung bases: Unremarkable. No mass. No consolidation. ABDOMEN: Liver: Unremarkable. No mass. Gallbladder and bile ducts: Unremarkable. No calcified stones. No ductal dilation. Pancreas: Unremarkable. No mass. No ductal dilation. Spleen: Unremarkable. No splenomegaly. Adrenals: Unremarkable. No mass. Kidneys and ureters: Unremarkable. No solid mass. No hydronephrosis. Stomach and bowel: Congenital malrotation/nonrotation of the bowel. There is marked distention of the stomach secondary to a midgut volvulus with inflammation surrounding the distal stomach with wall thickening concerning for ischemia. PELVIS: Appendix: No findings to suggest acute appendicitis. Bladder: Unremarkable. No mass. Reproductive: Unremarkable as visualized. ABDOMEN and PELVIS: Intraperitoneal space: Mild amount of free fluid. No free air. Bones/joints: No acute fracture. No dislocation. Soft tissues: Unremarkable. Vasculature: Unremarkable. No abdominal aortic aneurysm. Lymph nodes: Unremarkable. No enlarged lymph nodes. 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
[2023-05-20] MEDS ORDERED: CIPROFLOXACIN / D5W 400 MG/200 ML BAG IV STA (01:20)
[2023-05-20] MEDS ORDERED: BUPIVACAINE 0.5 % 5 MG/1 ML MPF 30ML VIAL ONE (01:37)
[2023-05-20] MEDS ORDERED: ONDANSETRON INJ 2 MG/ML 2 ML VIAL ONE (03:29)
[2023-05-20] MEDS ORDERED: ROCURONIUM BROMIDE 10 MG/ML 5 ML VIAL IV ONE (03:40)
[2023-05-20] MEDS ORDERED: SUGAMMADEX SODIUM 200 MG/2 ML VIAL IV ONE (03:40)
--- NOTE | 2023-05-20 04:04 | Operative Report ---
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 She was consented for exploratory laparotomy Description of Procedure The patient had placement of sequential compression devices. She received ciprofloxacin and Flagyl. After the induction of general endotracheal anesthesia, she had placement of a Samano catheter and nasogastric tube. Her abdomen was sterilely prepped and draped. A midline incision was made and carried down through the fascia into the abdominal cavity. The abdominal cavity was sharply entered and inspected. There was evidence of a purple large dilated loop of bowel located underneath the transverse colon. This was brought up into the wound and was noted to be the cecum. This was twisted and was untwisted by rotating counterclockwise. A bookwalter retractor was placed for exposure. The cecum was very dilated and did not appear to be fully viable. The right colon was then mobilized along the white line of [place] up to and including the hepatic flexure. A spot was chosen for division on the terminal ileum and this was divided with a firing of the JO ANN 60 stapler. A spot was chosen for division along the right colon past the cecum and this was divided with a firing of the JO ANN 80 stapler. The mesentery was taken with ties and the LigaSure. Once the specimen was free it was sent off the field. Bowel clamps had been placed prior. A end-to-end functional [id number] anastomosis was then created by making enterotomies in both ends of the intestine. A JO ANN 80 stapler was fired through this creating a new lumen. The enterotomy defect itself was closed with a TA 60 stapler. The mesenteric defect was closed with silk sutures. The wound was irrigated and noted to be hemostatic. The omentum was laid over the anastomosis. The fascia was closed with 2 running 0 PDS sutures. The skin was irrigated and then closed with mary kay. She was awakened and taken to recovery in stable condition. I attest to the content of the Intraoperative Record and any orders documented therein. Any exceptions are noted below.
[2023-05-20] MEDS ORDERED: diphenhydrAMINE 50 MG/ML VIAL IV PRN (05:38)
[2023-05-20] MEDS ORDERED: oxyCODONE/ACETAMINOPHEN 5mg/325mg TAB PO PRN ×2 (05:38)
[2023-05-20] MEDS ORDERED: PROMETHAZINE HCL 12.5 MG in SODIUM CHLORIDE 0.9% 50 ML IV PRN (05:38)
[2023-05-20] MEDS ORDERED: ALBUTEROL HFA 8 GM INHALER INH PRN (05:38)
[2023-05-20] MEDS ORDERED: MoRPHine SULFATE 4 MG/ML 1 ML CARP\\VIAL IV PRN (05:38)
--- NOTE | 2023-05-20 06:24 | Anesthesiology Progress Note ---
Date of Service May 20, 2023 Anesthesia Post Procedure Vital Signs Vital Signs: Temp Pulse Pulse Pulse Resp BP BP 05/20/23 05:15 98.1 F 75 16 150/84 H 05/20/23 05:45 99.0 F 75 16 144/90 H 05/20/23 04:50 97.5 F L 79 16 143/82 H 05/20/23 04:30 97.0 F L 85 16 147/82 H 05/20/23 04:40 97.2 F L 85 16 139/89 05/20/23 04:20 96.6 F L 97 H 16 125/94 05/20/23 01:01 177/88 H 05/20/23 01:01 67 13 05/20/23 01:00 66 13 05/20/23 00:30 78 18 05/20/23 00:00 71 15 05/19/23 23:39 75 17 160/82 H 05/19/23 23:00 70 15 05/19/23 22:37 71 19 05/19/23 22:00 78 24 05/19/23 21:30 88 18 05/19/23 21:00 75 19 05/19/23 20:54 68 25 H 05/19/23 22:10 78 17 05/19/23 22:10 77 17 109/72 05/19/23 20:54 70 05/19/23 20:53 70 18 109/72 Pulse Ox O2 Del Method O2 Flow Rate 05/20/23 05:15 99 Room Air 05/20/23 05:45 96 Room Air 05/20/23 04:50 74 L Room Air 05/20/23 04:30 99 Room Air 05/20/23 04:40 99 Room Air 05/20/23 04:20 99 Oxymask 4 05/20/23 01:01 05/20/23 01:01 100 05/20/23 01:00 100 05/20/23 00:30 97 05/20/23 00:00 100 05/19/23 23:39 100 05/19/23 23:00 100 05/19/23 22:37 05/19/23 22:00 100 05/19/23 21:30 97 05/19/23 21:00 05/19/23 20:54 05/19/23 22:10 100 Room Air 05/19/23 22:10 100 Room Air 05/19/23 20:54 05/19/23 20:53 96 Room Air Pain Intensity Abdomen: Pain Intensity: 6 Transfer of Care Handoff Completed per policy Notes Mental Status: alert / awake / arousable and participated in evaluation Patient Amnestic to Procedure: Yes Nausea / Vomiting: adequately controlled Pain: adequately controlled Airway Patency, RR, SpO2: stable & adequate BP & HR: stable & adequate Hydration State: stable & adequate Anesthetic Complications: no major complications apparent and Pt Satisfied with anesthetic care
[2023-05-20] MEDS: LACTATED RINGER'S 1,000 ML IV SCH ×2 (06:28→15:42)
[2023-05-20] MEDS: POTASSIUM CHLORIDE / WTR 10 MEQ/100 ML PLCT IV SCH ×3 (06:28→09:03)
[2023-05-20] MEDS: ENOXAPARIN INJ 40 MG/0.4 ML SYR SQ SCH (09:02)
[2023-05-20] MEDS: PANTOprazole 40 MG in SYRINGE 0 ML IV SCH ×2 (09:03→21:56)
[2023-05-20] MEDS: metroNIDAZOLE 500 MG/100 ML BAG IV SCH ×2 (10:15→18:33)
[2023-05-20] MEDS: CIPROFLOXACIN / D5W 400 MG/200 ML BAG IV SCH (11:39)
--- NOTE | 2023-05-20 14:23 | Surgery Progress Note ---
Date of Service May 20, 2023 Assessment & Plan (1) Volvulus of intestine: (2) Hypokalemia: (3) Hypertension: Plan POD # 1 s/p ex lap ileocecectomy for cecal volvulus. avss postop pain controlled abdomen is soft nondistended bowel movement this am Plan: Will plan to continue NGT for today Continue pain management as needed Continue IV Fluids IV antibiotics DVT prophylaxis with scds and lovenox incentive spirometry oob to chair and ambulate today labs in am Dr. Coronel was present during my examination and agrees with above. Shayna rm called at 14:34, patient got up to use commode to urinate and passed out per nursing staff. Arrived at room, shayna rm team present, manual blood pressure with systolic bp of 60 and then repeated at 80/60. Fluid bolus was started and oxygen via ambu bag then oxymask titrated down to 8L . Saturating at 100% on 8L and HR fluctuated in the low 110's then down to 80's. Normal rhythm. Abdomen soft, tender in right lower abdomen however no rigidity , guarding, rebound or peritonitis. Stat labs including cbc, bmp, lactate o btained. Patient felt nauseated and had spit up some mucous stuck in her throat. NGT still in place. BP rechecked again and up to 101/60. still saturating at 100% on 8 Liters oxymask. Likely syncopal episode, will await lab results. Finish fluid bolus then resume to 100 cc / hr, keep o2 sats >94%, bedrest for today, straight cath as needed. Will repeat blood work in am. Dr. Coronel was present at bedside and agrees with above. Admission and Anticipated Discharge Date Admission Date: May 20, 2023 Subjective feeling okay, preop pain has resolved postop pain controlled had bowel movement this am, nurse said look black no n,v no chest pain or shortness of breath Physical Exam Constitutional: WD/WN, vitals as above cooperative and comfortable; no acute distress and not ill appearing Respiratory: normal respiratory effort; no respiratory distress Gastrointestinal (Abdomen): Inspection/Auscultation: abdomen normal to inspection, + abdominal surgical incision (covered with dry dressing, some spotting present at center of dressing) and + hypoactive bowel sounds; abdomen not distended and + abnormal bowel sounds Percussion/Palpation: + abdomen tender (at midline incision , appropriate postop) and abdomen soft; no guarding, abdomen not rigid and abdomen not firm NGT with bilious output in canister Skin: no rashes, warm and dry Psychiatric: A+Ox3, euthymic affect Results & Data Vital Signs (Past 12 Hours) Vital Signs Temp Pulse Pulse Resp BP Pulse Ox O2 Del Method 05/20/23 11:35 36.7 C 111 H 22 103/71 100 Room Air 05/20/23 07:08 37.3 C 76 20 149/80 H 97 Room Air 05/20/23 06:08 37.1 C 74 16 147/78 H 98 Room Air 05/20/23 05:15 36.7 C 75 16 150/84 H 99 Room Air 05/20/23 05:45 37.2 C 75 16 144/90 H 96 Room Air 05/20/23 04:50 36.4 C L 79 16 143/82 H 74 L Room Air 05/20/23 04:30 36.1 C L 85 16 147/82 H 99 Room Air 05/20/23 04:40 36.2 C L 85 16 139/89 99 Room Air 05/20/23 04:20 35.9 C L 97 H 16 125/94 99 Oxymask O2 Flow Rate 05/20/23 11:35 05/20/23 07:08 05/20/23 06:08 05/20/23 05:15 05/20/23 05:45 05/20/23 04:50 05/20/23 04:30 05/20/23 04:40 05/20/23 04:20 4 Laboratory Results 05/19/23 05/19/23 05/19/23 Range/Units 22:47 21:50 21:50 WBC 12.63 H (4.8-10.8) K/ul RBC 4.82 (4.20-5.40) M/uL Hgb 14.3 (12.0-16.0) g/dl Hct 41.0 (37.0-47.0) % MCV 85.1 (80.0-100.0) fL MCH 29.7 (25.0-34.0) pg MCHC 34.9 (32.0-36.0) g/dL RDW Std Deviation 40.5 (36.4-46.3) fL RDW Coeff of Slim 13.1 (11.5-14.5) % Plt Count 240 (130-400) K/uL MPV 9.8 (9.4-12.4) fL Immature Gran % (Auto) 1.0 % Neut % (Auto) 83.9 % Lymph % (Auto) 9.2 % [place] % (Auto) 4.9 % Eos % (Auto) 0.5 % Baso % (Auto) 0.5 % Neut # (Auto) 10.61 H (1.40-6.50) K/uL Lymph # (Auto) 1.16 L (1.20-3.40) K/uL [place] # (Auto) 0.62 H (0.11-0.59) K/uL Eos # (Auto) 0.06 (0.00-0.50) K/uL Baso # (Auto) 0.06 (0.00-0.20) K/uL Immature Gran # (Auto) 0.12 (0.01-0.20) K/uL Sodium 137 (136-145) mmol/L Potassium 3.3 L (3.5-5.1) mmol/L Chloride 104 (98-107) mmol/L Carbon Dioxide 19 L (21-32) mmol/L Anion Gap 14 H (3-11) BUN 14 (6-23) mg/dl Creatinine 0.83 (0.6-1.2) mg/dl Est Cr Clr Drug Dosing 59.9 ml/min Est GFR ( Amer) 91.4 ml/min Est GFR (Non-Af Amer) 78.8 ml/min BUN/Creatinine Ratio 16.9 (10-20) Glucose 160 H (70-99(Fasting)) mg/dl Calcium 9.1 (8.6-10.3) mg/dl Total Bilirubin 0.5 (0.2-1.0) mg/dl Direct Bilirubin 0.1 (0-0.2) mg/dl AST 16 (13-39) U/L ALT 11 (7-52) U/L Alkaline Phosphatase 52 (34-104) U/L Total Protein 7.2 (6.0-8.3) gm/dl Albumin 4.6 (3.4-5.0) gm/dl Globulin 2.6 (2.5-4.0) gm/dl Albumin/Globulin Ratio 1.8 (0.9-2) Lipase 86 H (11-82) U/L Urine Color Yellow Urine Appearance Clear (Clear) Urine pH 8.0 H (4.5-7.5) Ur Specific [place] 1.009 (1.000-1.030) Urine Protein Negative (Negative) Urine Glucose (UA) Negative (Negative) Urine Ketones 1+ H (Negative) Urine Blood Negative (Negative) Urine Nitrite Negative (Negative) Urine Bilirubin Negative (Negative) Urine Urobilinogen Negative (Negative) Ur Leukocyte Esterase Negative (Negative)
[2023-05-20 15:51] LABS: Calcium 7.5 mg/dl (8.6-10.3); Potassium 4.3 mmol/L (3.5-5.1)
[2023-05-20 15:56] LABS: BUN Creatinine Ratio 21.4 (10-20); Est GFR (African American) 63.6 ml/min; Est GFR (Non-African American) 54.9 ml/min
[2023-05-20] MEDS ORDERED: LACTATED RINGER'S 500 ML IV ONE (16:09)
[2023-05-20 16:22] LABS: Hemoglobin 7.5 g/dl (12.0-16.0); Mean Corpuscular Hemoglobin 29.7 pg (25.0-34.0); Mean Corpuscular Hgb Conc 32.7 g/dL (32.0-36.0); Mean Corpuscular Volume 85.2 fL (80.0-100.0); Mean Platelet Volume 9.6 fL (9.4-12.4); Platelet Count 264 K/uL (130-400); RDW Coefficient of Variation 13.5 % (11.5-14.5); RDW Standard Deviation 44.2 fL (36.4-46.3); Red Blood Count 2.86 M/uL (4.20-5.40); White Blood Count 13.83 K/ul (4.8-10.8)
[2023-05-20 16:41] LABS: Basophils # (auto) 0.02 K/uL (0.00-0.20); Basophils % (auto) 0.1 %; Echinocytes 2+; Eosinophils # (auto) 0.01 K/uL (0.00-0.50); Eosinophils % (auto) 0.1 %; Immature Granulocytes # (auto) 0.11 K/uL (0.01-0.20); Immature Granulocytes % (auto) 0.8 %; Lymphocytes # (auto) 1.16 K/uL (1.20-3.40); Lymphocytes % (auto) 8.4 %; Monocytes # (auto) 0.34 K/uL (0.11-0.59); Monocytes % (auto) 2.5 %; Neutrophils # (auto) 12.19 K/uL (1.40-6.50); Neutrophils % (auto) 88.1 %; Polychromasia 1+
[2023-05-20] MEDS ORDERED: SODIUM CHLORIDE 0.9% 250 ML IV PRN (16:41)
[2023-05-20] MEDS ORDERED: IOVERSOL 350 MG 125mL Prefilled Syringe IV ONE (17:24)
--- NOTE | 2023-05-20 18:00 | CT Scan Report ---
CT angio chest PE protocol CLINICAL HISTORY: PE TECHNIQUE: Multidetector row helical CT of the chest was performed with angiographic protocol. Howe l and sagittal reformations were obtained. Coronal and sagittal MIPS were obtained from the axial jose maria a set and were submitted for review. Automated dose lowering techniques and/or adjustment according to patient size were utilized for this exam. Comparison: None available at the time of this dictation. FINDINGS: Lungs and pleura: Multiple pulmonary nodules measuring up to 3 mm in the left lower lobe (series 4 im age 156). Heart and pericardium: Heart size is normal. No pericardial effusion. Vessels: No evidence of pulmonary embolism. Mediastinum and belen: Unremarkable. Chest wall and lower neck: Unremarkable. Abdomen: For findings below the diaphragm, please refer to CT of the abdomen dated the same. Bones: Degenerative changes in the thoracic spine. IMPRESSION: No acute abnormality and in particular no evidence of pulmonary embolus. ACT 112: Negative or not required by law. Electronically signed by: Jesus Smith M.D. 05/20/2023 5:58 PM
[2023-05-20] MEDS: D5W AND 1/2NSS + 20MEQ KCL 20 MEQ/1,000 ML BAG IV SCH (18:06)
--- NOTE | 2023-05-20 18:07 | CT Scan Report ---
CT abd pelvis IV con only CLINICAL HISTORY: post op ex lap, hyptensive, lactic acid 7.9 TECHNIQUE: Helical axial images of the abdomen and pelvis were obtained and displayed. Automated dose lowering techniques and/or adjustment according to patient size were utilized for this exam. This e xam was performed with intravenous contrast. CT DOSE: 1153.84 mGy.cm COMPARISON: Comparison is made to CT abdomen pelvis 05/19/2023 FINDINGS: Lower chest: No acute abnormality. Liver: Unremarkable. No focal lesions are seen. Gallbladder and biliary tree: No calcified gallstones. Normal caliber wall. No intra- or extrahepatic biliary ductal dilation. Pancreas: Unremarkable, no focal lesions. Spleen: Unremarkable. Adrenals: Unremarkable. Kidneys and ureters: Unremarkable. Bladder: Unremarkable. Reproductive organs: Unremarkable. Bowel: Enteric tube terminates within the stomach. There is postsurgical change about the right hemic olon. Cecum is prominent without evidence of bowel obstruction. Lymph nodes Retroperitoneal: Unremarkable. Pelvic: Unremarkable. Mesenteric: Unremarkable. Peritoneum: Pneumoperitoneum is seen compatible with history of exploratory laparotomy. There is a sm all amount of ascites and fat stranding. Vessels: Unremarkable. Abdominal wall: Postsurgical changes are seen along the midline. Bones: Degenerative changes in the visualized spine. IMPRESSION: Expected pneumoperitoneum and soft tissue stranding in this postsurgical patient. No evidence of acut e abnormality is otherwise seen. ACT 112: Negative or not required by law. Electronically signed by: Jesus Smith M.D. 05/20/2023 6:05 PM
[2023-05-20] MEDS: MoRPHine SULFATE 2 MG/ML CARP IV PRN (22:42)
--- NOTE | 2023-05-20 23:19 | Surgery Progress Note ---
Date of Service May 20, 2023 Assessment & Plan (1) Volvulus of intestine: (2) Hypokalemia: (3) Hypertension: Plan POD # 1 s/p ex lap ileocecectomy for cecal volvulus. avss postop pain controlled abdomen is soft nondistended bowel movement this am Plan: Will plan to continue NGT for today Continue pain management as needed Continue IV Fluids IV antibiotics DVT prophylaxis with scds and lovenox incentive spirometry oob to chair and ambulate today labs in am Dr. Coronel was present during my examination and agrees with above. Shayna rm called at 14:34, patient got up to use commode to urinate and passed out per nursing staff. Arrived at room, shayna rm team present, manual blood pressure with systolic bp of 60 and then repeated at 80/60. Fluid bolus was started and oxygen via ambu bag then oxymask titrated down to 8L . Saturating at 100% on 8L and HR fluctuated in the low 110's then down to 80's. Normal rhythm. Abdomen soft, tender in right lower abdomen however no rigidity , guarding, rebound or peritonitis. Stat labs including cbc, bmp, lactate o btained. Patient felt nauseated and had spit up some mucous stuck in her throat. NGT still in place. BP rechecked again and up to 101/60. still saturating at 100% on 8 Liters oxymask. Likely syncopal episode, will await lab results. Finish fluid bolus then resume to 100 cc / hr, keep o2 sats >94%, bedrest for today, straight cath as needed. Will repeat blood work in am. Dr. Coronel was present at bedside and agrees with above. 05/20/2023 11:[address] Coronel doing better, will recheck lactate and H/H after 2 units RBC, continue treatment, Dr. Ricci was informed later of afternoon. repeat labs in morning, will F/U. Admission and Anticipated Discharge Date Admission Date: May 20, 2023 Subjective feeling okay, preop pain has resolved postop pain controlled had bowel movement this am, nurse said look black no n,v no chest pain or shortness of breath 05/20/2023 11:[address] Coronel recheck pt. pt feels better. no significant abdominal pain, no dizziness. BP 127/79, HR 82. first bag RBC in now running second bag. lactate down to 4.5 from 7.9. no fever. I inform pt about CT scan report. Physical Exam Constitutional: WD/WN, vitals as above Eyes: PERRL, conjunctivae normal, anicteric sclerae Neck: trachea midline, no thyromegaly Respiratory: normal respiratory effort, lungs clear to auscultation Cardiovascular: RRR, no murmur, no edema Gastrointestinal (Abdomen): soft, mild tenderness at middle abdomen. no rebound pain, no distend, BS +. Neurologic: patellar DTR's 2+ bilat, sensation intact Psychiatric: A+Ox3, euthymic affect Results & Data Vital Signs (Past 12 Hours) Vital Signs Temp Pulse Pulse Resp BP BP BP 05/20/23 22:47 37 C 82 16 127/79 05/20/23 22:34 37.7 C H 89 16 129/79 05/20/23 22:15 37 C 84 16 139/84 05/20/23 21:00 36.9 C 72 14 131/83 05/20/23 20:25 37.3 C 86 16 122/82 05/20/23 19:25 37 C 90 16 123/84 05/20/23 18:55 37 C 90 18 119/81 05/20/23 18:40 37.1 C 84 16 131/84 05/20/23 18:25 37.1 C 85 16 124/83 05/20/23 16:04 92 H 14 97/66 L 05/20/23 15:35 86 20 98/60 L 05/20/23 15:21 84 22 99/67 L 05/20/23 14:34 85 14 05/20/23 11:35 36.7 C 111 H 22 103/71 Pulse Ox O2 Del Method O2 Flow Rate 05/20/23 22:47 99 8 05/20/23 22:34 99 8 05/20/23 22:15 100 8 05/20/23 21:00 100 8 05/20/23 20:25 100 9 05/20/23 19:25 100 05/20/23 18:55 8 L Oxymask 05/20/23 18:40 100 8 05/20/23 18:25 100 8 05/20/23 16:04 95 Oxymask 10 05/20/23 15:35 100 Oxymask 7 05/20/23 15:21 100 Oxymask 9 05/20/23 14:34 92 Ambu-Bag 15 05/20/23 11:35 100 Room Air Laboratory Results Lab Results 05/19/23 05/19/23 05/19/23 Range/Units 21:50 21:50 21:50 WBC 12.63 H (4.8-10.8) K/ul RBC 4.82 (4.20-5.40) M/uL Hgb 14.3 (12.0-16.0) g/dl Hct 41.0 (37.0-47.0) % MCV 85.1 (80.0-100.0) fL MCH 29.7 (25.0-34.0) pg MCHC 34.9 (32.0-36.0) g/dL RDW Std Deviation 40.5 (36.4-46.3) fL RDW Coeff of Slim 13.1 (11.5-14.5) % Plt Count 240 (130-400) K/uL MPV 9.8 (9.4-12.4) fL Immature Gran % (Auto) 1.0 % Neut % (Auto) 83.9 % Lymph % (Auto) 9.2 % [place] % (Auto) 4.9 % Eos % (Auto) 0.5 % Baso % (Auto) 0.5 % Neut # (Auto) 10.61 H (1.40-6.50) K/uL Lymph # (Auto) 1.16 L (1.20-3.40) K/uL [place] # (Auto) 0.62 H (0.11-0.59) K/uL Eos # (Auto) 0.06 (0.00-0.50) K/uL Baso # (Auto) 0.06 (0.00-0.20) K/uL Immature Gran # (Auto) 0.12 (0.01-0.20) K/uL Polychromasia Echinocytes Sodium 137 (136-145) mmol/L Potassium 3.3 L (3.5-5.1) mmol/L Chloride 104 (98-107) mmol/L Carbon Dioxide 19 L (21-32) mmol/L Anion Gap 14 H (3-11) BUN 14 (6-23) mg/dl Creatinine 0.83 (0.6-1.2) mg/dl Est Cr Clr Drug Dosing 59.9 ml/min Est GFR ( Amer) 91.4 ml/min Est GFR (Non-Af Amer) 78.8 ml/min BUN/Creatinine Ratio 16.9 (10-20) Glucose 160 H (70-99(Fasting)) mg/dl POC Glucose (70-99) mg/dl Lactate (0.4-2.0) mmol/L Calcium 9.1 (8.6-10.3) mg/dl Total Bilirubin 0.5 (0.2-1.0) mg/dl Direct Bilirubin 0.1 (0-0.2) mg/dl AST 16 (13-39) U/L ALT 11 (7-52) U/L Alkaline Phosphatase 52 (34-104) U/L Total Protein 7.2 (6.0-8.3) gm/dl Albumin 4.6 (3.4-5.0) gm/dl Globulin 2.6 (2.5-4.0) gm/dl Albumin/Globulin Ratio 1.8 (0.9-2) Lipase 86 H (11-82) U/L Urine Color Urine Appearance (Clear) Urine pH (4.5-7.5) Ur Specific [place] (1.000-1.030) Urine Protein (Negative) Urine Glucose (UA) (Negative) Urine Ketones (Negative) Urine Blood (Negative) Urine Nitrite (Negative) Urine Bilirubin (Negative) Urine Urobilinogen (Negative) Ur Leukocyte Esterase (Negative) Blood Type Blood Type Recheck A Positive Antibody Screen Crossmatch 05/19/23 05/20/23 05/20/23 Range/Units 22:47 14:36 14:52 WBC 13.83 H (4.8-10.8) K/ul RBC 2.86 L (4.20-5.40) M/uL Hgb 7.5 L D (12.0-16.0) g/dl Hct 26.0 L (37.0-47.0) % MCV 85.2 (80.0-100.0) fL MCH 29.7 (25.0-34.0) pg MCHC 32.7 (32.0-36.0) g/dL RDW Std Deviation 44.2 (36.4-46.3) fL RDW Coeff of Slim 13.5 (11.5-14.5) % Plt Count 264 (130-400) K/uL MPV 9.6 (9.4-12.4) fL Immature Gran % (Auto) 0.8 % Neut % (Auto) 88.1 % Lymph % (Auto) 8.4 % [place] % (Auto) 2.5 % Eos % (Auto) 0.1 % Baso % (Auto) 0.1 % Neut # (Auto) 12.19 H (1.40-6.50) K/uL Lymph # (Auto) 1.16 L (1.20-3.40) K/uL [place] # (Auto) 0.34 (0.11-0.59) K/uL Eos # (Auto) 0.01 (0.00-0.50) K/uL Baso # (Auto) 0.02 (0.00-0.20) K/uL Immature Gran # (Auto) 0.11 (0.01-0.20) K/uL Polychromasia 1+ Echinocytes 2+ Sodium (136-145) mmol/L Potassium (3.5-5.1) mmol/L Chloride (98-107) mmol/L Carbon Dioxide (21-32) mmol/L Anion Gap (3-11) BUN (6-23) mg/dl Creatinine (0.6-1.2) mg/dl Est Cr Clr Drug Dosing ml/min Est GFR ( Amer) ml/min Est GFR (Non-Af Amer) ml/min BUN/Creatinine Ratio (10-20) Glucose (70-99(Fasting)) mg/dl POC Glucose 241 H (70-99) mg/dl Lactate (0.4-2.0) mmol/L Calcium (8.6-10.3) mg/dl Total Bilirubin (0.2-1.0) mg/dl Direct Bilirubin (0-0.2) mg/dl AST (13-39) U/L ALT (7-52) U/L Alkaline Phosphatase (34-104) U/L Total Protein (6.0-8.3) gm/dl Albumin (3.4-5.0) gm/dl Globulin (2.5-4.0) gm/dl Albumin/Globulin Ratio (0.9-2) Lipase (11-82) U/L Urine Color Yellow Urine Appearance Clear (Clear) Urine pH 8.0 H (4.5-7.5) Ur Specific [place] 1.009 (1.000-1.030) Urine Protein Negative (Negative) Urine Glucose (UA) Negative (Negative) Urine Ketones 1+ H (Negative) Urine Blood Negative (Negative) Urine Nitrite Negative (Negative) Urine Bilirubin Negative (Negative) Urine Urobilinogen Negative (Negative) Ur Leukocyte Esterase Negative (Negative) Blood Type Blood Type Recheck Antibody Screen Crossmatch 05/20/23 05/20/23 05/20/23 Range/Units 14:52 14:52 14:52 WBC (4.8-10.8) K/ul RBC (4.20-5.40) M/uL Hgb (12.0-16.0) g/dl Hct (37.0-47.0) % MCV (80.0-100.0) fL MCH (25.0-34.0) pg MCHC (32.0-36.0) g/dL RDW Std Deviation (36.4-46.3) fL RDW Coeff of Slim (11.5-14.5) % Plt Count (130-400) K/uL MPV (9.4-12.4) fL Immature Gran % (Auto) % Neut % (Auto) % Lymph % (Auto) % [place] % (Auto) % Eos % (Auto) % Baso % (Auto) % Neut # (Auto) (1.40-6.50) K/uL Lymph # (Auto) (1.20-3.40) K/uL [place] # (Auto) (0.11-0.59) K/uL Eos # (Auto) (0.00-0.50) K/uL Baso # (Auto) (0.00-0.20) K/uL Immature Gran # (Auto) (0.01-0.20) K/uL Polychromasia Echinocytes Sodium 135 L (136-145) mmol/L Potassium 4.3 D (3.5-5.1) mmol/L Chloride 105 (98-107) mmol/L Carbon Dioxide 17 L (21-32) mmol/L Anion Gap 13 H (3-11) BUN 24 H (6-23) mg/dl Creatinine 1.12 (0.6-1.2) mg/dl Est Cr Clr Drug Dosing 49.0 ml/min Est GFR ( Amer) 63.6 ml/min Est GFR (Non-Af Amer) 54.9 ml/min BUN/Creatinine Ratio 21.4 H (10-20) Glucose 288 H (70-99(Fasting)) mg/dl POC Glucose (70-99) mg/dl Lactate 7.9 H* (0.4-2.0) mmol/L Calcium 7.5 L (8.6-10.3) mg/dl Total Bilirubin (0.2-1.0) mg/dl Direct Bilirubin (0-0.2) mg/dl AST (13-39) U/L ALT (7-52) U/L Alkaline Phosphatase (34-104) U/L Total Protein (6.0-8.3) gm/dl Albumin (3.4-5.0) gm/dl Globulin (2.5-4.0) gm/dl Albumin/Globulin Ratio (0.9-2) Lipase (11-82) U/L Urine Color Urine Appearance (Clear) Urine pH (4.5-7.5) Ur Specific [place] (1.000-1.030) Urine Protein (Negative) Urine Glucose (UA) (Negative) Urine Ketones (Negative) Urine Blood (Negative) Urine Nitrite (Negative) Urine Bilirubin (Negative) Urine Urobilinogen (Negative) Ur Leukocyte Esterase (Negative) Blood Type A Positive Blood Type Recheck Antibody Screen NEGATIVE Crossmatch See Detail 05/20/23 Range/Units 17:48 WBC (4.8-10.8) K/ul RBC (4.20-5.40) M/uL Hgb (12.0-16.0) g/dl Hct (37.0-47.0) % MCV (80.0-100.0) fL MCH (25.0-34.0) pg MCHC (32.0-36.0) g/dL RDW Std Deviation (36.4-46.3) fL RDW Coeff of Slim (11.5-14.5) % Plt Count (130-400) K/uL MPV (9.4-12.4) fL Immature Gran % (Auto) % Neut % (Auto) % Lymph % (Auto) % [place] % (Auto) % Eos % (Auto) % Baso % (Auto) % Neut # (Auto) (1.40-6.50) K/uL Lymph # (Auto) (1.20-3.40) K/uL [place] # (Auto) (0.11-0.59) K/uL Eos # (Auto) (0.00-0.50) K/uL Baso # (Auto) (0.00-0.20) K/uL Immature Gran # (Auto) (0.01-0.20) K/uL Polychromasia Echinocytes Sodium (136-145) mmol/L Potassium (3.5-5.1) mmol/L Chloride (98-107) mmol/L Carbon Dioxide (21-32) mmol/L Anion Gap (3-11) BUN (6-23) mg/dl Creatinine (0.6-1.2) mg/dl Est Cr Clr Drug Dosing ml/min Est GFR ( Amer) ml/min Est GFR (Non-Af Amer) ml/min BUN/Creatinine Ratio (10-20) Glucose (70-99(Fasting)) mg/dl POC Glucose (70-99) mg/dl Lactate 4.5 H* (0.4-2.0) mmol/L Calcium (8.6-10.3) mg/dl Total Bilirubin (0.2-1.0) mg/dl Direct Bilirubin (0-0.2) mg/dl AST (13-39) U/L ALT (7-52) U/L Alkaline Phosphatase (34-104) U/L Total Protein (6.0-8.3) gm/dl Albumin (3.4-5.0) gm/dl Globulin (2.5-4.0) gm/dl Albumin/Globulin Ratio (0.9-2) Lipase (11-82) U/L Urine Color Urine Appearance (Clear) Urine pH (4.5-7.5) Ur Specific [place] (1.000-1.030) Urine Protein (Negative) Urine Glucose (UA) (Negative) Urine Ketones (Negative) Urine Blood (Negative) Urine Nitrite (Negative) Urine Bilirubin (Negative) Urine Urobilinogen (Negative) Ur Leukocyte Esterase (Negative) Blood Type Blood Type Recheck Antibody Screen Crossmatch Diagnostic Findings CT abd pelvis IV con only CLINICAL HISTORY: post op ex lap, hyptensive, lactic acid 7.9 TECHNIQUE: Helical axial images of the abdomen and pelvis were obtained and displayed. Automated dose lowering techniques and/or adjustment according to patient size were utilized for this exam. This exam was performed with intravenous contrast. CT DOSE: 1153.84 mGy.cm COMPARISON: Comparison is made to CT abdomen pelvis 05/19/2023 FINDINGS: Lower chest: No acute abnormality. Liver: Unremarkable. No focal lesions are seen. Gallbladder and biliary tree: No calcified gallstones. Normal caliber wall. No intra- or extrahepatic biliary ductal dilation. Pancreas: Unremarkable, no focal lesions. Spleen: Unremarkable. Adrenals: Unremarkable. Kidneys and ureters: Unremarkable. Bladder: Unremarkable. Reproductive organs: Unremarkable. Bowel: Enteric tube terminates within the stomach. There is postsurgical change about the right hemicolon. Cecum is prominent without evidence of bowel obstruction. Lymph nodes Retroperitoneal: Unremarkable. Pelvic: Unremarkable. Mesenteric: Unremarkable. Peritoneum: Pneumoperitoneum is seen compatible with history of exploratory laparotomy. There is a small amount of ascites and fat stranding. Vessels: Unremarkable. Abdominal wall: Postsurgical changes are seen along the midline. Bones: Degenerative changes in the visualized spine. IMPRESSION: Expected pneumoperitoneum and soft tissue stranding in this postsurgical patient. No evidence of acute abnormality is otherwise seen. ACT 112: Negative or not required by law.
[2023-05-21] MEDS: CIPROFLOXACIN / D5W 400 MG/200 ML BAG IV SCH ×3 (00:53→23:48)
[2023-05-21] MEDS: metroNIDAZOLE 500 MG/100 ML BAG IV SCH ×3 (01:17→18:39)
[2023-05-21 02:44] LABS: Basophils # (auto) 0.04 K/uL (0.00-0.20); Basophils % (auto) 0.4 %; Hematocrit (blood only) 31.8 % (37.0-47.0); Hemoglobin 10.9 g/dl (12.0-16.0); Immature Granulocytes # (auto) 0.05 K/uL (0.01-0.20); Immature Granulocytes % (auto) 0.5 %; Lymphocytes # (auto) 1.23 K/uL (1.20-3.40); Lymphocytes % (auto) 11.5 %; Mean Corpuscular Hemoglobin 28.4 pg (25.0-34.0); Mean Corpuscular Hgb Conc 34.3 g/dL (32.0-36.0); Mean Corpuscular Volume 82.8 fL (80.0-100.0); Mean Platelet Volume 9.2 fL (9.4-12.4); Monocytes % (auto) 8.4 %; Neutrophils # (auto) 8.46 K/uL (1.40-6.50); Neutrophils % (auto) 79.2 %; Platelet Count 171 K/uL (130-400); RDW Standard Deviation 51.5 fL (36.4-46.3); Red Blood Count 3.84 M/uL (4.20-5.40); White Blood Count 10.68 K/ul (4.8-10.8)
[2023-05-21 02:54] LABS: BUN Creatinine Ratio 27.5 (10-20); Calcium 7.3 mg/dl (8.6-10.3); Creatinine Clr Calc Pharmacy 60.3 ml/min; Est GFR (African American) 81.7 ml/min; Est GFR (Non-African American) 70.5 ml/min; Potassium 4.7 mmol/L (3.5-5.1)
[2023-05-21] MEDS: MoRPHine SULFATE 2 MG/ML CARP IV PRN ×3 (04:13→15:40)
[2023-05-21] MEDS: D5W AND 1/2NSS + 20MEQ KCL 20 MEQ/1,000 ML BAG IV SCH ×2 (04:13→15:21)
[2023-05-21] MEDS: PANTOprazole 40 MG in SYRINGE 0 ML IV SCH ×2 (08:06→20:52)
--- NOTE | 2023-05-21 11:09 | Surgery Progress Note ---
Date of Service May 21, 2023 Assessment & Plan (1) Volvulus of intestine: (2) Hypokalemia: Plan: repleted (3) Hypertension: Plan: Was hypotensive yesterday, no BP stable s/p 2 units of PRBCs Hbg responded up to 10.9 from 7.5 Plan POD # 1.5 s/p ex lap ileocecectomy for cecal volvulus. avss hgb 7.5 --> 10.9 after 2 units of PRBCs, hemodynamically stable postop pain controlled abdomen is soft nondistended lactate 7.9 --> 4.5 --> 1.4 CT abd/pelvis/chest negative Plan: Acute blood loss anemia postoperatively yesterday with Hgb 7.5 from 14 (preop) likely causing vasovagal yesterday. Lactic acid initially 7.9 but improved with fluid bolus and [address] scan of abd/pelvis/chest unremarkable for acute changes. Keep NGT until passing flatus given bowel distention on postop CT and the cecum was ischemic causing resection continue pain management okay for bedside commode today Continue IV fluids , will drecrease rate to 80 cc/hr given slight fluid overload incentive spirometry scds for dvt prophyalxis, will hold lovenox IV protonix BID IV antibiotics for 5 days [facility] surgery covering the weekend Dr. Ricci has seen and examined patient, agrees with above. Admission and Anticipated Discharge Date Admission Date: May 20, 2023 Subjective feeling better today, more alert today than yesterday, still very fatigued pain at incision site and RLQ no n,v no flatus this am urinating with bedpan no chest pain or shortness of breath feeling a bit swollen in the hands Physical Exam Constitutional: WD/WN, vitals as above cooperative, comfortable and + lethargic; no acute distress, not ill appearing, not in distress and not diaphoretic Respiratory: normal respiratory effort; no respiratory distress, no labored breathing and no retractions Gastrointestinal (Abdomen): Inspection/Auscultation: abdomen normal to inspection and + abdominal surgical incision (clean/dry/intact with mary kay); abdomen not distended Percussion/Palpation: + abdomen tender (at midline incision and RLQ) and abdomen soft; no guarding and abdomen not rigid Skin: no rashes, warm and dry Psychiatric: A+Ox3, euthymic affect Results & Data Vital Signs (Past 12 Hours) Vital Signs Temp Pulse Pulse Resp BP BP Pulse Ox 05/21/23 10:17 36.6 C 86 18 122/76 98 05/21/23 07:22 36.6 C 87 16 133/77 100 05/21/23 01:09 37 C 80 16 144/84 H 99 05/20/23 23:20 37.4 C 89 16 135/64 99 O2 Del Method O2 Flow Rate 05/21/23 10:17 Room Air 05/21/23 07:22 Room Air 05/21/23 01:09 8 05/20/23 23:20 9 Laboratory Results 05/21/23 05/21/23 05/21/23 Range/Units 02:22 02:22 02:22 WBC 10.68 (4.8-10.8) K/ul RBC 3.84 L (4.20-5.40) M/uL Hgb 10.9 L D (12.0-16.0) g/dl Hct 31.8 L (37.0-47.0) % MCV 82.8 (80.0-100.0) fL MCH 28.4 (25.0-34.0) pg MCHC 34.3 (32.0-36.0) g/dL RDW Std Deviation 51.5 H (36.4-46.3) fL RDW Coeff of Slim 17.0 H (11.5-14.5) % Plt Count 171 (130-400) K/uL MPV 9.2 L (9.4-12.4) fL Immature Gran % (Auto) 0.5 % Neut % (Auto) 79.2 % Lymph % (Auto) 11.5 % [place] % (Auto) 8.4 % Eos % (Auto) 0.0 % Baso % (Auto) 0.4 % Neut # (Auto) 8.46 H (1.40-6.50) K/uL Lymph # (Auto) 1.23 (1.20-3.40) K/uL [place] # (Auto) 0.90 H (0.11-0.59) K/uL Eos # (Auto) 0.00 (0.00-0.50) K/uL Baso # (Auto) 0.04 (0.00-0.20) K/uL Immature Gran # (Auto) 0.05 (0.01-0.20) K/uL Polychromasia Echinocytes Sodium 137 (136-145) mmol/L Potassium 4.7 (3.5-5.1) mmol/L Chloride 109 H (98-107) mmol/L Carbon Dioxide 23 (21-32) mmol/L Anion Gap 5 (3-11) BUN 25 H (6-23) mg/dl Creatinine 0.91 (0.6-1.2) mg/dl Est Cr Clr Drug Dosing 60.3 ml/min Est GFR ( Amer) 81.7 ml/min Est GFR (Non-Af Amer) 70.5 ml/min BUN/Creatinine Ratio 27.5 H (10-20) Glucose 189 H (70-99(Fasting)) mg/dl Lactate 1.3 (0.4-2.0) mmol/L Calcium 7.3 L (8.6-10.3) mg/dl Blood Type Blood Type Recheck Antibody Screen Crossmatch 05/20/23 05/20/23 05/20/23 Range/Units 17:48 14:52 14:52 WBC (4.8-10.8) K/ul RBC (4.20-5.40) M/uL Hgb (12.0-16.0) g/dl Hct (37.0-47.0) % MCV (80.0-100.0) fL MCH (25.0-34.0) pg MCHC (32.0-36.0) g/dL RDW Std Deviation (36.4-46.3) fL RDW Coeff of Slim (11.5-14.5) % Plt Count (130-400) K/uL MPV (9.4-12.4) fL Immature Gran % (Auto) % Neut % (Auto) % Lymph % (Auto) % [place] % (Auto) % Eos % (Auto) % Baso % (Auto) % Neut # (Auto) (1.40-6.50) K/uL Lymph # (Auto) (1.20-3.40) K/uL [place] # (Auto) (0.11-0.59) K/uL Eos # (Auto) (0.00-0.50) K/uL Baso # (Auto) (0.00-0.20) K/uL Immature Gran # (Auto) (0.01-0.20) K/uL Polychromasia Echinocytes Sodium (136-145) mmol/L Potassium (3.5-5.1) mmol/L Chloride (98-107) mmol/L Carbon Dioxide (21-32) mmol/L Anion Gap (3-11) BUN (6-23) mg/dl Creatinine (0.6-1.2) mg/dl Est Cr Clr Drug Dosing ml/min Est GFR ( Amer) ml/min Est GFR (Non-Af Amer) ml/min BUN/Creatinine Ratio (10-20) Glucose (70-99(Fasting)) mg/dl Lactate 4.5 H* 7.9 H* (0.4-2.0) mmol/L Calcium (8.6-10.3) mg/dl Blood Type A Positive Blood Type Recheck Antibody Screen NEGATIVE Crossmatch See Detail 05/20/23 05/20/23 05/19/23 Range/Units 14:52 14:52 21:50 WBC 13.83 H (4.8-10.8) K/ul RBC 2.86 L (4.20-5.40) M/uL Hgb 7.5 L D (12.0-16.0) g/dl Hct 26.0 L (37.0-47.0) % MCV 85.2 (80.0-100.0) fL MCH 29.7 (25.0-34.0) pg MCHC 32.7 (32.0-36.0) g/dL RDW Std Deviation 44.2 (36.4-46.3) fL RDW Coeff of Slim 13.5 (11.5-14.5) % Plt Count 264 (130-400) K/uL MPV 9.6 (9.4-12.4) fL Immature Gran % (Auto) 0.8 % Neut % (Auto) 88.1 % Lymph % (Auto) 8.4 % [place] % (Auto) 2.5 % Eos % (Auto) 0.1 % Baso % (Auto) 0.1 % Neut # (Auto) 12.19 H (1.40-6.50) K/uL Lymph # (Auto) 1.16 L (1.20-3.40) K/uL [place] # (Auto) 0.34 (0.11-0.59) K/uL Eos # (Auto) 0.01 (0.00-0.50) K/uL Baso # (Auto) 0.02 (0.00-0.20) K/uL Immature Gran # (Auto) 0.11 (0.01-0.20) K/uL Polychromasia 1+ Echinocytes 2+ Sodium 135 L (136-145) mmol/L Potassium 4.3 D (3.5-5.1) mmol/L Chloride 105 (98-107) mmol/L Carbon Dioxide 17 L (21-32) mmol/L Anion Gap 13 H (3-11) BUN 24 H (6-23) mg/dl Creatinine 1.12 (0.6-1.2) mg/dl Est Cr Clr Drug Dosing 49.0 ml/min Est GFR ( Amer) 63.6 ml/min Est GFR (Non-Af Amer) 54.9 ml/min BUN/Creatinine Ratio 21.4 H (10-20) Glucose 288 H (70-99(Fasting)) mg/dl Lactate (0.4-2.0) mmol/L Calcium 7.5 L (8.6-10.3) mg/dl Blood Type Blood Type Recheck A Positive Antibody Screen Crossmatch
[2023-05-21] MEDS: ACETAMINOPHEN 1,000 MG/100 ML VIAL IV PRN (19:54)
[2023-05-22] MEDS: metroNIDAZOLE 500 MG/100 ML BAG IV SCH ×3 (01:52→17:07)
[2023-05-22] MEDS: D5W AND 1/2NSS + 20MEQ KCL 20 MEQ/1,000 ML BAG IV SCH ×2 (01:58→17:12)
--- NOTE | 2023-05-22 05:33 | Surgery Progress Note ---
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 status and NG tube to suction until patient has return of bowel function Continue intravenous fluids until NG tube can be removed and diet can be advanced Continue analgesics as needed Continue antiemetics as needed Increase ambulation as tolerated Encourage use of incentive spirometry Continue antibiotics in form of Cipro and Flagyl Check a.m. labs when available Admission and Anticipated Discharge Date Admission Date: May 20, 2023 Supervising Physician Co-Signing Physician Notes I have seen and examined this patient. Overall she appears well and is not in any distress or having uncontrolled pain. She has remained HD stable o/n and afebrile for the past 24 hours. She does have a mild leukocytosis this am and her H/H did drift down from post transfusion numbers to 8.3/23.7 today from 10.9/31.8 yesterday. Her abdomen is not distended, soft and without significant TTP. There is no bruising. We will continue to hold the Lovenox today and f/u labs in the am. Continuing with NGT, sips and chips. Continue maintenance IVF and IV antibiotics (on Cipro and Flagyl). Her chemistry is WNL. Will f/u in the am and replete electrolytes as needed. OOB to chair today with assistance and incentive spirometer as states above. Patient is on PPI for GI ppx. Subjective Patient is resting comfortably in bed. She notes that since her surgery she has not passed any flatus or had a bowel movement. She currently denies any nausea or vomiting. She does note some abdominal tenderness. Patient did report a headache last night that she felt was due to caffeine withdrawalshe was administered intravenous acetaminophen and notes that this had not improved her headache. Patient notes that she did ambulate only small amounts in the room yesterday. She denies any shortness of breath. She denies any fevers, shakes, or chills. Physical Exam Gastrointestinal (Abdomen): Abdomen is soft with minimal distention. Bowel sounds are hypoactive. Patient has appropriate pain with palpation over her surgical incisions. Incision does appear clean, dry, and intact. 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
[2023-05-22] MEDS: ACETAMINOPHEN 1,000 MG/100 ML VIAL IV PRN ×2 (07:25→16:35)
[2023-05-22 08:37] LABS: Basophils # (auto) 0.05 K/uL (0.00-0.20); Basophils % (auto) 0.4 %; Eosinophils # (auto) 0.04 K/uL (0.00-0.50); Eosinophils % (auto) 0.4 %; Hematocrit (blood only) 23.7 % (37.0-47.0); Hemoglobin 8.3 g/dl (12.0-16.0); Immature Granulocytes # (auto) 0.07 K/uL (0.01-0.20); Immature Granulocytes % (auto) 0.6 %; Lymphocytes # (auto) 1.64 K/uL (1.20-3.40); Lymphocytes % (auto) 14.6 %; Mean Corpuscular Volume 82.9 fL (80.0-100.0); Mean Platelet Volume 9.2 fL (9.4-12.4); Monocytes # (auto) 0.83 K/uL (0.11-0.59); Monocytes % (auto) 7.4 %; Neutrophils # (auto) 8.63 K/uL (1.40-6.50); Neutrophils % (auto) 76.6 %; Platelet Count 159 K/uL (130-400); RDW Coefficient of Variation 16.9 % (11.5-14.5); RDW Standard Deviation 51.4 fL (36.4-46.3); Red Blood Count 2.86 M/uL (4.20-5.40); White Blood Count 11.26 K/ul (4.8-10.8)
[2023-05-22 09:57] LABS: Calcium 7.7 mg/dl (8.6-10.3); Creatinine Clr Calc Pharmacy 73.1 ml/min; Est GFR (African American) 103.3 ml/min; Est GFR (Non-African American) 89.1 ml/min; Potassium 3.7 mmol/L (3.5-5.1)
[2023-05-22] MEDS: PANTOprazole 40 MG in SYRINGE 0 ML IV SCH ×2 (10:17→20:01)
[2023-05-22] MEDS: CIPROFLOXACIN / D5W 400 MG/200 ML BAG IV SCH (12:53)
[2023-05-23] MEDS: CIPROFLOXACIN / D5W 400 MG/200 ML BAG IV SCH ×2 (00:49→11:26)
[2023-05-23] MEDS: ACETAMINOPHEN 1,000 MG/100 ML VIAL IV PRN ×3 (01:10→20:00)
[2023-05-23] MEDS: metroNIDAZOLE 500 MG/100 ML BAG IV SCH ×3 (02:52→18:01)
[2023-05-23] MEDS: D5W AND 1/2NSS + 20MEQ KCL 20 MEQ/1,000 ML BAG IV SCH ×3 (03:52→18:00)
--- NOTE | 2023-05-23 05:15 | Surgery Progress Note ---
Date of Service May 23, 2023 Assessment & Plan (1) Malrotation of intestine with midgut volvulus: Plan: Patient is status post ileocecectomy on 05/20/2023 (postop day #3) Acute blood loss anemia noted postoperatively and patient did receive 2 units of packed red blood cells with appropriate rise of hemoglobin thereafter. There has been a slight drop in her hemoglobin since her blood transfusion. She has not had any episodes of hypotension and is currently not tachycardic. Will start sips of clears today. Continue intravenous fluids until diet can be advanced Continue analgesics as needed Continue antiemetics as needed Continue to encourage ambulation and use of incentive spirometer Continue antibiotics in form of Cipro and Flagyl Check a.m. labs when available SCDs are in place for DVT prevention. Chemical means have been held due to noted postoperative anemia. Admission and Anticipated Discharge Date Admission Date: May 20, 2023 Supervising Physician Co-Signing Physician Notes I have seen and examined this patient this am. At the time of my interview and exam, she was able to report a small solid BM and continues to pass flatus, w/o N/V. Says she has already been tolerating ice chips. She is hungry. Leukocytosis is resolved this am and she has not had any fevers o/n Electrolytes without abnormalities. H/H remains stable to labs drawn yesterday. May have chemical DVT ppx, is ambulating well Will start sips of clears today. Subjective Patient notes that she feels better than yesterday. She has not had any nausea or vomiting and notes only minimal abdominal pain near her surgical incisions. She has been ambulating in the hallway. She notes that she is passing flatus but has not had a bowel movement since her surgery. Physical Exam Gastrointestinal (Abdomen): Abdomen is soft and nondistended. Surgical incisions are clean, dry, intact. Patient has appropriate tenderness near surgical incisions. Bowel sounds are hypoactive. Results & Data Vital Signs (Past 12 Hours) Vital Signs Temp Pulse Resp BP Pulse Ox Pulse Ox O2 Del Method 05/22/23 20:01 99 05/22/23 20:01 Room Air 05/22/23 19:55 37.1 C 79 16 122/70 99 Room Air O2 Del Method 05/22/23 20:01 Room Air 05/22/23 20:01 05/22/23 19:55 PG Care Time/CCT Total # of Minutes Spent Total Time Spent with Patient: Total time spent is greater than 50% in coordination of care (as documented) at patient's floor/unit and/or counseling patient: Coding Level of Care Code None Diagnoses Malrotation of intestine with midgut volvulus Q43.3
[2023-05-23 08:35] LABS: Basophils # (auto) 0.05 K/uL (0.00-0.20); Basophils % (auto) 0.6 %; Eosinophils # (auto) 0.07 K/uL (0.00-0.50); Eosinophils % (auto) 0.9 %; Hematocrit (blood only) 24.5 % (37.0-47.0); Hemoglobin 8.1 g/dl (12.0-16.0); Immature Granulocytes # (auto) 0.04 K/uL (0.01-0.20); Immature Granulocytes % (auto) 0.5 %; Lymphocytes # (auto) 0.93 K/uL (1.20-3.40); Lymphocytes % (auto) 11.9 %; Mean Corpuscular Hemoglobin 28.3 pg (25.0-34.0); Mean Corpuscular Hgb Conc 33.1 g/dL (32.0-36.0); Mean Corpuscular Volume 85.7 fL (80.0-100.0); Mean Platelet Volume 9.2 fL (9.4-12.4); Monocytes # (auto) 0.44 K/uL (0.11-0.59); Monocytes % (auto) 5.6 %; Neutrophils % (auto) 80.5 %; Platelet Count 208 K/uL (130-400); RDW Coefficient of Variation 16.8 % (11.5-14.5); RDW Standard Deviation 53.1 fL (36.4-46.3); Red Blood Count 2.86 M/uL (4.20-5.40); White Blood Count 7.83 K/ul (4.8-10.8)
[2023-05-23 09:39] LABS: BUN Creatinine Ratio 14.9 (10-20); Calcium 8.4 mg/dl (8.6-10.3); Creatinine Clr Calc Pharmacy 74.1 ml/min; Est GFR (Non-African American) 90.6 ml/min; Potassium 3.5 mmol/L (3.5-5.1)
[2023-05-23] MEDS: PANTOprazole 40 MG in SYRINGE 0 ML IV SCH ×2 (10:00→19:57)
[2023-05-24] MEDS: CIPROFLOXACIN / D5W 400 MG/200 ML BAG IV SCH (00:03)
[2023-05-24] MEDS: metroNIDAZOLE 500 MG/100 ML BAG IV SCH (02:13)
[2023-05-24] MEDS: D5W AND 1/2NSS + 20MEQ KCL 20 MEQ/1,000 ML BAG IV SCH ×2 (07:19→19:46)
[2023-05-24] MEDS: PANTOprazole 40 MG in SYRINGE 0 ML IV SCH ×2 (07:19→19:46)
[2023-05-24 07:29] LABS: Basophils # (auto) 0.05 K/uL (0.00-0.20); Basophils % (auto) 0.7 %; Eosinophils # (auto) 0.21 K/uL (0.00-0.50); Eosinophils % (auto) 3.1 %; Hematocrit (blood only) 26.7 % (37.0-47.0); Hemoglobin 8.7 g/dl (12.0-16.0); Immature Granulocytes # (auto) 0.04 K/uL (0.01-0.20); Immature Granulocytes % (auto) 0.6 %; Lymphocytes # (auto) 1.27 K/uL (1.20-3.40); Lymphocytes % (auto) 18.8 %; Mean Corpuscular Hemoglobin 28.5 pg (25.0-34.0); Mean Corpuscular Hgb Conc 32.6 g/dL (32.0-36.0); Mean Corpuscular Volume 87.5 fL (80.0-100.0); Mean Platelet Volume 8.9 fL (9.4-12.4); Monocytes # (auto) 0.52 K/uL (0.11-0.59); Monocytes % (auto) 7.7 %; Neutrophils # (auto) 4.65 K/uL (1.40-6.50); Neutrophils % (auto) 69.1 %; Platelet Count 277 K/uL (130-400); RDW Standard Deviation 53.6 fL (36.4-46.3); Red Blood Count 3.05 M/uL (4.20-5.40); White Blood Count 6.74 K/ul (4.8-10.8)
[2023-05-24 07:45] LABS: BUN Creatinine Ratio 7.8 (10-20); Calcium 8.6 mg/dl (8.6-10.3); Creatinine Clr Calc Pharmacy 71.2 ml/min; Est GFR (Non-African American) 86.3 ml/min; Potassium 3.3 mmol/L (3.5-5.1)
[2023-05-24] MEDS: POTASSIUM CHLORIDE / WTR 10 MEQ/100 ML PLCT IV SCH ×2 (08:54→10:05)
--- NOTE | 2023-05-24 14:07 | Electrocardiogram Report ---
Test Reason : Blood Pressure : / mmHG Vent. Rate : 083 BPM Atrial Rate : 083 BPM P-R Int : 148 ms QRS Dur : 076 ms QT Int : 416 ms P-R-T Axes : 076 050 057 degrees QTc Int : 488 ms Poor data quality, interpretation may be adversely affected Normal sinus rhythm Prolonged QT No previous ECGs available Confirmed by Win Blas ([id number]) on 05/24/2023 2:06:44 PM Referred By: REFERRED SELF Confirmed By:Win Blas
--- NOTE | 2023-05-24 15:01 | Surgery Progress Note ---
Date of Service May 24, 2023 Assessment & Plan (1) Malrotation of intestine with midgut volvulus: Plan: Patient is status post ileocecectomy on 05/20/2023 (postop day #4) WBC 6.7, Hbg stable at 8.7. K 3.3 (will replete) Vital signs stable She is feeling well overall. + flatus and BMs. She is tolerating NGT clamping and sips/chips Will d/c NGT and start on clear liquid diet Okay to resume lovenox Dry dressing to midline to capture any drainage, will monitor Continue IV abx Encourage ambulation/pulm toilet Admission and Anticipated Discharge Date Admission Date: May 20, 2023 Supervising Physician Co-Signing Physician Notes I have seen and examined this patient with the surgical PA, she is dong ronni w jose. Advancing her diet today. I agree with the written plan Subjective Patient is feeling well. + BMs/gas. Denies any nausea/vomiting. Some soreness in abdomen but is tolerable. Physical Exam Physical Exam: awake/alert, no distress Respiratory: normal respiratory effort Gastrointestinal (Abdomen): Inspection/Auscultation: + abdominal surgical incision (midline mary kay, scant drainage on dressing, otherwise intact no infxn) Percussion/Palpation: abdomen soft Results & Data Vital Signs (Past 12 Hours) Vital Signs Temp Pulse Resp BP Pulse Ox O2 Del Method 05/24/23 07:38 36.6 C 80 18 125/59 L 100 Room Air PG Care Time/CCT Total # of Minutes Spent Total Time Spent with Patient: Total time spent is greater than 50% in coordination of care (as documented) at patient's floor/unit and/or counseling patient: Coding Level of Care Code 47647 SUB INP/OBS CARE 25MIN Diagnoses Malrotation of intestine with midgut volvulus Q43.3
[2023-05-25 07:08] LABS: BUN Creatinine Ratio 4.1 (10-20); Calcium 8.7 mg/dl (8.6-10.3); Creatinine Clr Calc Pharmacy 74.1 ml/min; Est GFR (Non-African American) 90.6 ml/min; Potassium 3.6 mmol/L (3.5-5.1)
[2023-05-25 07:11] LABS: Basophils # (auto) 0.05 K/uL (0.00-0.20); Basophils % (auto) 0.9 %; Eosinophils # (auto) 0.34 K/uL (0.00-0.50); Eosinophils % (auto) 5.8 %; Hematocrit (blood only) 27.2 % (37.0-47.0); Hemoglobin 8.8 g/dl (12.0-16.0); Immature Granulocytes # (auto) 0.06 K/uL (0.01-0.20); Lymphocytes # (auto) 1.38 K/uL (1.20-3.40); Lymphocytes % (auto) 23.6 %; Mean Corpuscular Hemoglobin 28.5 pg (25.0-34.0); Mean Corpuscular Hgb Conc 32.4 g/dL (32.0-36.0); Mean Platelet Volume 8.7 fL (9.4-12.4); Monocytes # (auto) 0.44 K/uL (0.11-0.59); Monocytes % (auto) 7.5 %; Neutrophils # (auto) 3.57 K/uL (1.40-6.50); Neutrophils % (auto) 61.2 %; Platelet Count 322 K/uL (130-400); RDW Coefficient of Variation 17.4 % (11.5-14.5); RDW Standard Deviation 54.9 fL (36.4-46.3); Red Blood Count 3.09 M/uL (4.20-5.40); White Blood Count 5.84 K/ul (4.8-10.8)
[2023-05-25] MEDS: D5W AND 1/2NSS + 20MEQ KCL 20 MEQ/1,000 ML BAG IV SCH (07:36)
[2023-05-25] MEDS: PANTOprazole 40 MG in SYRINGE 0 ML IV SCH (07:37)
[2023-05-25] MEDS: ENOXAPARIN INJ 40 MG/0.4 ML SYR SQ SCH (07:42)
--- NOTE | 2023-05-25 09:31 | Surgery Progress Note ---
Date of Service May 25, 2023 Assessment & Plan (1) Volvulus of intestine: (2) Hypokalemia: Plan: repleted (3) Hypertension: Plan: Was hypotensive yesterday, no BP stable s/p 2 units of PRBCs Hbg responded up to 10.9 from 7.5 Plan POD # 1.5 s/p ex lap ileocecectomy for cecal volvulus. avss hgb 7.5 --> 10.9 after 2 units of PRBCs, hemodynamically stable postop pain controlled abdomen is soft nondistended lactate 7.9 --> 4.5 --> 1.4 CT abd/pelvis/chest negative Plan: Acute blood loss anemia postoperatively yesterday with Hgb 7.5 from 14 (preop) likely causing vasovagal yesterday. Lactic acid initially 7.9 but improved with fluid bolus and [address] scan of abd/pelvis/chest unremarkable for acute changes. Keep NGT until passing flatus given bowel distention on postop CT and the cecum was ischemic causing resection continue pain management okay for bedside commode today Continue IV fluids , will drecrease rate to 80 cc/hr given slight fluid overload incentive spirometry scds for dvt prophyalxis, will hold lovenox IV protonix BID IV antibiotics for 5 days [facility] surgery covering the weekend Dr. Ricci has seen and examined patient, agrees with above. 05/25/2023 9: 37 AM, Dr. Coronel F/U S/P ileocecectomy. POD 6 pt is doing fine, pt wants to go home today, the post-op care instruction was given, F/U Dr. Ricci 2 weeks, Admission and Anticipated Discharge Date Admission Date: May 20, 2023 Supervising Physician Co-Signing Physician Notes I have seen and examined this patient with the surgical PA, she is dong very well. Advancing her diet today. I agree with the written plan Subjective Patient is feeling well. + BMs/gas. Denies any nausea/vomiting. Some soreness in abdomen but is tolerable. 05/25/2023 9:[address] Coronel F/U S/P ileocecectomy. POD 6 pt is doing fine, passed flatus and BM. no abdominal pain, no fever, no dizziness. tolerated clear diet. H/H stable. 8.7. Physical Exam Constitutional: WD/WN, vitals as above Eyes: PERRL, conjunctivae normal, anicteric sclerae Neck: trachea midline, no thyromegaly Respiratory: normal respiratory effort, lungs clear to auscultation Cardiovascular: RRR, no murmur, no edema Gastrointestinal (Abdomen): soft, NT, ND, the incision intact, no redness. BS +. Musculoskeletal: no cyanosis or clubbing, extremities motor strength 5/5 Neurologic: patellar DTR's 2+ bilat, sensation intact Psychiatric: A+Ox3, euthymic affect Results & Data Vital Signs (Past 12 Hours) Vital Signs Temp Pulse Resp BP Pulse Ox O2 Del Method 05/25/23 07:47 36.9 C 86 16 134/79 100 Room Air Laboratory Results Lab Results 05/19/23 05/19/23 05/19/23 Range/Units 21:50 21:50 21:50 WBC 12.63 H (4.8-10.8) K/ul RBC 4.82 (4.20-5.40) M/uL Hgb 14.3 (12.0-16.0) g/dl Hct 41.0 (37.0-47.0) % MCV 85.1 (80.0-100.0) fL MCH 29.7 (25.0-34.0) pg MCHC 34.9 (32.0-36.0) g/dL RDW Std Deviation 40.5 (36.4-46.3) fL RDW Coeff of Slim 13.1 (11.5-14.5) % Plt Count 240 (130-400) K/uL MPV 9.8 (9.4-12.4) fL Immature Gran % (Auto) 1.0 % Neut % (Auto) 83.9 % Lymph % (Auto) 9.2 % Snyder % (Auto) 4.9 % Eos % (Auto) 0.5 % Baso % (Auto) 0.5 % Neut # (Auto) 10.61 H (1.40-6.50) K/uL Lymph # (Auto) 1.16 L (1.20-3.40) K/uL Snyder # (Auto) 0.62 H (0.11-0.59) K/uL Eos # (Auto) 0.06 (0.00-0.50) K/uL Baso # (Auto) 0.06 (0.00-0.20) K/uL Immature Gran # (Auto) 0.12 (0.01-0.20) K/uL Polychromasia Echinocytes Sodium 137 (136-145) mmol/L Potassium 3.3 L (3.5-5.1) mmol/L Chloride 104 (98-107) mmol/L Carbon Dioxide 19 L (21-32) mmol/L Anion Gap 14 H (3-11) BUN 14 (6-23) mg/dl Creatinine 0.83 (0.6-1.2) mg/dl Est Cr Clr Drug Dosing 59.9 ml/min Est GFR ( Amer) 91.4 ml/min Est GFR (Non-Af Amer) 78.8 ml/min BUN/Creatinine Ratio 16.9 (10-20) Glucose 160 H (70-99(Fasting)) mg/dl POC Glucose (70-99) mg/dl Lactate (0.4-2.0) mmol/L Calcium 9.1 (8.6-10.3) mg/dl Total Bilirubin 0.5 (0.2-1.0) mg/dl Direct Bilirubin 0.1 (0-0.2) mg/dl AST 16 (13-39) U/L ALT 11 (7-52) U/L Alkaline Phosphatase 52 (34-104) U/L Total Protein 7.2 (6.0-8.3) gm/dl Albumin 4.6 (3.4-5.0) gm/dl Globulin 2.6 (2.5-4.0) gm/dl Albumin/Globulin Ratio 1.8 (0.9-2) Lipase 86 H (11-82) U/L Urine Color Urine Appearance (Clear) Urine pH (4.5-7.5) Ur Specific Stanton (1.000-1.030) Urine Protein (Negative) Urine Glucose (UA) (Negative) Urine Ketones (Negative) Urine Blood (Negative) Urine Nitrite (Negative) Urine Bilirubin (Negative) Urine Urobilinogen (Negative) Ur Leukocyte Esterase (Negative) Blood Type Blood Type Recheck A Positive Antibody Screen Crossmatch 05/19/23 05/20/23 05/20/23 Range/Units 22:47 14:36 14:52 WBC 13.83 H (4.8-10.8) K/ul RBC 2.86 L (4.20-5.40) M/uL Hgb 7.5 L D (12.0-16.0) g/dl Hct 26.0 L (37.0-47.0) % MCV 85.2 (80.0-100.0) fL MCH 29.7 (25.0-34.0) pg MCHC 32.7 (32.0-36.0) g/dL RDW Std Deviation 44.2 (36.4-46.3) fL RDW Coeff of Slim 13.5 (11.5-14.5) % Plt Count 264 (130-400) K/uL MPV 9.6 (9.4-12.4) fL Immature Gran % (Auto) 0.8 % Neut % (Auto) 88.1 % Lymph % (Auto) 8.4 % Snyder % (Auto) 2.5 % Eos % (Auto) 0.1 % Baso % (Auto) 0.1 % Neut # (Auto) 12.19 H (1.40-6.50) K/uL Lymph # (Auto) 1.16 L (1.20-3.40) K/uL Snyder # (Auto) 0.34 (0.11-0.59) K/uL Eos # (Auto) 0.01 (0.00-0.50) K/uL Baso # (Auto) 0.02 (0.00-0.20) K/uL Immature Gran # (Auto) 0.11 (0.01-0.20) K/uL Polychromasia 1+ Echinocytes 2+ Sodium (136-145) mmol/L Potassium (3.5-5.1) mmol/L Chloride (98-107) mmol/L Carbon Dioxide (21-32) mmol/L Anion Gap (3-11) BUN (6-23) mg/dl Creatinine (0.6-1.2) mg/dl Est Cr Clr Drug Dosing ml/min Est GFR ( Amer) ml/min Est GFR (Non-Af Amer) ml/min BUN/Creatinine Ratio (10-20) Glucose (70-99(Fasting)) mg/dl POC Glucose 241 H (70-99) mg/dl Lactate (0.4-2.0) mmol/L Calcium (8.6-10.3) mg/dl Total Bilirubin (0.2-1.0) mg/dl Direct Bilirubin (0-0.2) mg/dl AST (13-39) U/L ALT (7-52) U/L Alkaline Phosphatase (34-104) U/L Total Protein (6.0-8.3) gm/dl Albumin (3.4-5.0) gm/dl Globulin (2.5-4.0) gm/dl Albumin/Globulin Ratio (0.9-2) Lipase (11-82) U/L Urine Color Yellow Urine Appearance Clear (Clear) Urine pH 8.0 H (4.5-7.5) Ur Specific Stanton 1.009 (1.000-1.030) Urine Protein Negative (Negative) Urine Glucose (UA) Negative (Negative) Urine Ketones 1+ H (Negative) Urine Blood Negative (Negative) Urine Nitrite Negative (Negative) Urine Bilirubin Negative (Negative) Urine Urobilinogen Negative (Negative) Ur Leukocyte Esterase Negative (Negative) Blood Type Blood Type Recheck Antibody Screen Crossmatch 05/20/23 05/20/23 05/20/23 Range/Units 14:52 14:52 14:52 WBC (4.8-10.8) K/ul RBC (4.20-5.40) M/uL Hgb (12.0-16.0) g/dl Hct (37.0-47.0) % MCV (80.0-100.0) fL MCH (25.0-34.0) pg MCHC (32.0-36.0) g/dL RDW Std Deviation (36.4-46.3) fL RDW Coeff of Slim (11.5-14.5) % Plt Count (130-400) K/uL MPV (9.4-12.4) fL Immature Gran % (Auto) % Neut % (Auto) % Lymph % (Auto) % Snyder % (Auto) % Eos % (Auto) % Baso % (Auto) % Neut # (Auto) (1.40-6.50) K/uL Lymph # (Auto) (1.20-3.40) K/uL Snyder # (Auto) (0.11-0.59) K/uL Eos # (Auto) (0.00-0.50) K/uL Baso # (Auto) (0.00-0.20) K/uL Immature Gran # (Auto) (0.01-0.20) K/uL Polychromasia Echinocytes Sodium 135 L (136-145) mmol/L Potassium 4.3 D (3.5-5.1) mmol/L Chloride 105 (98-107) mmol/L Carbon Dioxide 17 L (21-32) mmol/L Anion Gap 13 H (3-11) BUN 24 H (6-23) mg/dl Creatinine 1.12 (0.6-1.2) mg/dl Est Cr Clr Drug Dosing 49.0 ml/min Est GFR ( Amer) 63.6 ml/min Est GFR (Non-Af Amer) 54.9 ml/min BUN/Creatinine Ratio 21.4 H (10-20) Glucose 288 H (70-99(Fasting)) mg/dl POC Glucose (70-99) mg/dl Lactate 7.9 H* (0.4-2.0) mmol/L Calcium 7.5 L (8.6-10.3) mg/dl Total Bilirubin (0.2-1.0) mg/dl Direct Bilirubin (0-0.2) mg/dl AST (13-39) U/L ALT (7-52) U/L Alkaline Phosphatase (34-104) U/L Total Protein (6.0-8.3) gm/dl Albumin (3.4-5.0) gm/dl Globulin (2.5-4.0) gm/dl Albumin/Globulin Ratio (0.9-2) Lipase (11-82) U/L Urine Color Urine Appearance (Clear) Urine pH (4.5-7.5) Ur Specific Stanton (1.000-1.030) Urine Protein (Negative) Urine Glucose (UA) (Negative) Urine Ketones (Negative) Urine Blood (Negative) Urine Nitrite (Negative) Urine Bilirubin (Negative) Urine Urobilinogen (Negative) Ur Leukocyte Esterase (Negative) Blood Type A Positive Blood Type Recheck Antibody Screen NEGATIVE Crossmatch See Detail 05/20/23 05/21/23 05/21/23 Range/Units 17:48 02:22 02:22 WBC 10.68 (4.8-10.8) K/ul RBC 3.84 L (4.20-5.40) M/uL Hgb 10.9 L D (12.0-16.0) g/dl Hct 31.8 L (37.0-47.0) % MCV 82.8 (80.0-100.0) fL MCH 28.4 (25.0-34.0) pg MCHC 34.3 (32.0-36.0) g/dL RDW Std Deviation 51.5 H (36.4-46.3) fL RDW Coeff of Slim 17.0 H (11.5-14.5) % Plt Count 171 (130-400) K/uL MPV 9.2 L (9.4-12.4) fL Immature Gran % (Auto) 0.5 % Neut % (Auto) 79.2 % Lymph % (Auto) 11.5 % Snyder % (Auto) 8.4 % Eos % (Auto) 0.0 % Baso % (Auto) 0.4 % Neut # (Auto) 8.46 H (1.40-6.50) K/uL Lymph # (Auto) 1.23 (1.20-3.40) K/uL Snyder # (Auto) 0.90 H (0.11-0.59) K/uL Eos # (Auto) 0.00 (0.00-0.50) K/uL Baso # (Auto) 0.04 (0.00-0.20) K/uL Immature Gran # (Auto) 0.05 (0.01-0.20) K/uL Polychromasia Echinocytes Sodium 137 (136-145) mmol/L Potassium 4.7 (3.5-5.1) mmol/L Chloride 109 H (98-107) mmol/L Carbon Dioxide 23 (21-32) mmol/L Anion Gap 5 (3-11) BUN 25 H (6-23) mg/dl Creatinine 0.91 (0.6-1.2) mg/dl Est Cr Clr Drug Dosing 60.3 ml/min Est GFR ( Amer) 81.7 ml/min Est GFR (Non-Af Amer) 70.5 ml/min BUN/Creatinine Ratio 27.5 H (10-20) Glucose 189 H (70-99(Fasting)) mg/dl POC Glucose (70-99) mg/dl Lactate 4.5 H* (0.4-2.0) mmol/L Calcium 7.3 L (8.6-10.3) mg/dl Total Bilirubin (0.2-1.0) mg/dl Direct Bilirubin (0-0.2) mg/dl AST (13-39) U/L ALT (7-52) U/L Alkaline Phosphatase (34-104) U/L Total Protein (6.0-8.3) gm/dl Albumin (3.4-5.0) gm/dl Globulin (2.5-4.0) gm/dl Albumin/Globulin Ratio (0.9-2) Lipase (11-82) U/L Urine Color Urine Appearance (Clear) Urine pH (4.5-7.5) Ur Specific Stanton (1.000-1.030) Urine Protein (Negative) Urine Glucose (UA) (Negative) Urine Ketones (Negative) Urine Blood (Negative) Urine Nitrite (Negative) Urine Bilirubin (Negative) Urine Urobilinogen (Negative) Ur Leukocyte Esterase (Negative) Blood Type Blood Type Recheck Antibody Screen Crossmatch 05/21/23 05/22/23 05/22/23 Range/Units 02:22 08:05 08:05 WBC 11.26 H (4.8-10.8) K/ul RBC 2.86 L (4.20-5.40) M/uL Hgb 8.3 L (12.0-16.0) g/dl Hct 23.7 L (37.0-47.0) % MCV 82.9 (80.0-100.0) fL MCH 29.0 (25.0-34.0) pg MCHC 35.0 (32.0-36.0) g/dL RDW Std Deviation 51.4 H (36.4-46.3) fL RDW Coeff of Slim 16.9 H (11.5-14.5) % Plt Count 159 (130-400) K/uL MPV 9.2 L (9.4-12.4) fL Immature Gran % (Auto) 0.6 % Neut % (Auto) 76.6 % Lymph % (Auto) 14.6 % Snyder % (Auto) 7.4 % Eos % (Auto) 0.4 % Baso % (Auto) 0.4 % Neut # (Auto) 8.63 H (1.40-6.50) K/uL Lymph # (Auto) 1.64 (1.20-3.40) K/uL Snyder # (Auto) 0.83 H (0.11-0.59) K/uL Eos # (Auto) 0.04 (0.00-0.50) K/uL Baso # (Auto) 0.05 (0.00-0.20) K/uL Immature Gran # (Auto) 0.07 (0.01-0.20) K/uL Polychromasia Echinocytes Sodium 138 (136-145) mmol/L Potassium 3.7 D (3.5-5.1) mmol/L Chloride 106 (98-107) mmol/L Carbon Dioxide 26 (21-32) mmol/L Anion Gap 6 (3-11) BUN 12 (6-23) mg/dl Creatinine 0.75 (0.6-1.2) mg/dl Est Cr Clr Drug Dosing 73.1 ml/min Est GFR ( Amer) 103.3 ml/min Est GFR (Non-Af Amer) 89.1 ml/min BUN/Creatinine Ratio 16.0 (10-20) Glucose 111 H (70-99(Fasting)) mg/dl POC Glucose (70-99) mg/dl Lactate 1.3 (0.4-2.0) mmol/L Calcium 7.7 L (8.6-10.3) mg/dl Total Bilirubin (0.2-1.0) mg/dl Direct Bilirubin (0-0.2) mg/dl AST (13-39) U/L ALT (7-52) U/L Alkaline Phosphatase (34-104) U/L Total Protein (6.0-8.3) gm/dl Albumin (3.4-5.0) gm/dl Globulin (2.5-4.0) gm/dl Albumin/Globulin Ratio (0.9-2) Lipase (11-82) U/L Urine Color Urine Appearance (Clear) Urine pH (4.5-7.5) Ur Specific Stanton (1.000-1.030) Urine Protein (Negative) Urine Glucose (UA) (Negative) Urine Ketones (Negative) Urine Blood (Negative) Urine Nitrite (Negative) Urine Bilirubin (Negative) Urine Urobilinogen (Negative) Ur Leukocyte Esterase (Negative) Blood Type Blood Type Recheck Antibody Screen Crossmatch 05/23/23 05/23/23 05/24/23 Range/Units 07:43 07:43 06:45 WBC 7.83 6.74 (4.8-10.8) K/ul RBC 2.86 L 3.05 L (4.20-5.40) M/uL Hgb 8.1 L 8.7 L (12.0-16.0) g/dl Hct 24.5 L 26.7 L (37.0-47.0) % MCV 85.7 87.5 (80.0-100.0) fL MCH 28.3 28.5 (25.0-34.0) pg MCHC 33.1 32.6 (32.0-36.0) g/dL RDW Std Deviation 53.1 H 53.6 H (36.4-46.3) fL RDW Coeff of Slim 16.8 H 17.0 H (11.5-14.5) % Plt Count 208 277 (130-400) K/uL MPV 9.2 L 8.9 L (9.4-12.4) fL Immature Gran % (Auto) 0.5 0.6 % Neut % (Auto) 80.5 69.1 % Lymph % (Auto) 11.9 18.8 % Snyder % (Auto) 5.6 7.7 % Eos % (Auto) 0.9 3.1 % Baso % (Auto) 0.6 0.7 % Neut # (Auto) 6.30 4.65 (1.40-6.50) K/uL Lymph # (Auto) 0.93 L 1.27 (1.20-3.40) K/uL Snyder # (Auto) 0.44 0.52 (0.11-0.59) K/uL Eos # (Auto) 0.07 0.21 (0.00-0.50) K/uL Baso # (Auto) 0.05 0.05 (0.00-0.20) K/uL Immature Gran # (Auto) 0.04 0.04 (0.01-0.20) K/uL Polychromasia Echinocytes Sodium 140 (136-145) mmol/L Potassium 3.5 (3.5-5.1) mmol/L Chloride 106 (98-107) mmol/L Carbon Dioxide 25 (21-32) mmol/L Anion Gap 9 (3-11) BUN 11 (6-23) mg/dl Creatinine 0.74 (0.6-1.2) mg/dl Est Cr Clr Drug Dosing 74.1 ml/min Est GFR ( Amer) 105.0 ml/min Est GFR (Non-Af Amer) 90.6 ml/min BUN/Creatinine Ratio 14.9 (10-20) Glucose 118 H (70-99(Fasting)) mg/dl POC Glucose (70-99) mg/dl Lactate (0.4-2.0) mmol/L Calcium 8.4 L (8.6-10.3) mg/dl Total Bilirubin (0.2-1.0) mg/dl Direct Bilirubin (0-0.2) mg/dl AST (13-39) U/L ALT (7-52) U/L Alkaline Phosphatase (34-104) U/L Total Protein (6.0-8.3) gm/dl Albumin (3.4-5.0) gm/dl Globulin (2.5-4.0) gm/dl Albumin/Globulin Ratio (0.9-2) Lipase (11-82) U/L Urine Color Urine Appearance (Clear) Urine pH (4.5-7.5) Ur Specific Stanton (1.000-1.030) Urine Protein (Negative) Urine Glucose (UA) (Negative) Urine Ketones (Negative) Urine Blood (Negative) Urine Nitrite (Negative) Urine Bilirubin (Negative) Urine Urobilinogen (Negative) Ur Leukocyte Esterase (Negative) Blood Type Blood Type Recheck Antibody Screen Crossmatch 05/24/23 05/25/23 05/25/23 Range/Units 06:45 06:28 06:28 WBC 5.84 (4.8-10.8) K/ul RBC 3.09 L (4.20-5.40) M/uL Hgb 8.8 L (12.0-16.0) g/dl Hct 27.2 L (37.0-47.0) % MCV 88.0 (80.0-100.0) fL MCH 28.5 (25.0-34.0) pg MCHC 32.4 (32.0-36.0) g/dL RDW Std Deviation 54.9 H (36.4-46.3) fL RDW Coeff of Slim 17.4 H (11.5-14.5) % Plt Count 322 (130-400) K/uL MPV 8.7 L (9.4-12.4) fL Immature Gran % (Auto) 1.0 % Neut % (Auto) 61.2 % Lymph % (Auto) 23.6 % Snyder % (Auto) 7.5 % Eos % (Auto) 5.8 % Baso % (Auto) 0.9 % Neut # (Auto) 3.57 (1.40-6.50) K/uL Lymph # (Auto) 1.38 (1.20-3.40) K/uL Snyder # (Auto) 0.44 (0.11-0.59) K/uL Eos # (Auto) 0.34 (0.00-0.50) K/uL Baso # (Auto) 0.05 (0.00-0.20) K/uL Immature Gran # (Auto) 0.06 (0.01-0.20) K/uL Polychromasia Echinocytes Sodium 139 141 (136-145) mmol/L Potassium 3.3 L 3.6 (3.5-5.1) mmol/L Chloride 106 108 H (98-107) mmol/L Carbon Dioxide 26 26 (21-32) mmol/L Anion Gap 7 7 (3-11) BUN 6 3 L (6-23) mg/dl Creatinine 0.77 0.74 (0.6-1.2) mg/dl Est Cr Clr Drug Dosing 71.2 74.1 ml/min Est GFR ( Amer) 100.0 105.0 ml/min Est GFR (Non-Af Amer) 86.3 90.6 ml/min BUN/Creatinine Ratio 7.8 L 4.1 L (10-20) Glucose 126 H 121 H (70-99(Fasting)) mg/dl POC Glucose (70-99) mg/dl Lactate (0.4-2.0) mmol/L Calcium 8.6 8.7 (8.6-10.3) mg/dl Total Bilirubin (0.2-1.0) mg/dl Direct Bilirubin (0-0.2) mg/dl AST (13-39) U/L ALT (7-52) U/L Alkaline Phosphatase (34-104) U/L Total Protein (6.0-8.3) gm/dl Albumin (3.4-5.0) gm/dl Globulin (2.5-4.0) gm/dl Albumin/Globulin Ratio (0.9-2) Lipase (11-82) U/L Urine Color Urine Appearance (Clear) Urine pH (4.5-7.5) Ur Specific Stanton (1.000-1.030) Urine Protein (Negative) Urine Glucose (UA) (Negative) Urine Ketones (Negative) Urine Blood (Negative) Urine Nitrite (Negative) Urine Bilirubin (Negative) Urine Urobilinogen (Negative) Ur Leukocyte Esterase (Negative) Blood Type Blood Type Recheck Antibody Screen Crossmatch
--- NOTE | 2023-05-25 09:59 | Discharge Summary ---
Date of Service May 25, 2023 Admission HPI Per Admitting Provider 57 yr old woman with sharp onset of generalized abdominal pain after eating some ice cream. Sharp, crampy, intense - worst in upper abdomen. Had both nausea and intractable vomiting. No fevers/ chills. No radiation of the pain. No exacerbating or relieving factors. Only prior abdominal operation was C-sxn. Otherwise relatively healthy. Hospital course: Patient is a 57 years old female who presented to the ED with acute abdominal pain patient had a CT scan diagnosis cecal volvulus. Patient was taken to OR for Ileocecectomy. Patient tolerated procedure well. However on postop day 1 patient developed a syncope. Repeat the blood work shows patient hemoglobin level of 6.7. Patient received 2 unit RBC. After transfusion. Patient doing much better. Today is postop day 6. Patient doing fine. No abdominal pain, no nausea,no vomiting, no fever. Positive bowel movement. Tolerated clear diet. Hemoglobin 8.7. On physical exam. Vital signs stable. Blood pressure 134/79, heart rate 86, respiratory rate is 16, temperature Streptase 36.9, O2 saturation 100% on room air. Patient alert awake oriented x3 HEENT is normal limitation On the neck: no JVD On the chest: bilateral lung sounds clear On the heart: normal S1-S2 no murmur Abdomen: soft, no tenderness, no distention, bowel sounds positive, incision intact, no redness Extremity: no edema Patient wants to go home today. I gae patient postop care instruction. patient understood. I answered all questions. Admission Exam (Per Admitting) Constitutional WD/WN, vitals as above Eyes PERRL, conjunctivae normal, anicteric sclerae Neck trachea midline, no thyromegaly Respiratory normal respiratory effort, lungs clear to auscultation Cardiovascular RRR, no murmur, no edema Musculoskeletal no cyanosis or clubbing, extremities motor strength 5/5 Neurologic patellar DTR's 2+ bilat, sensation intact Psychiatric A+Ox3, euthymic affect Discharge Data Consultations 05/20/23 00:28 ED Decision to Admit Stat Procedures Performed Operation Date: 05/20/23 01:05 Actual Procedures p iliocecectomy(Not Applicable) - Stacey Ricci MD Diabetes Follow Up Diabetes Follow Up: Follow up Dr. Ricci 2 weeks, Hospital Course (1) Volvulus of intestine: (2) Hypokalemia: repleted (3) Hypertension: Was hypotensive yesterday, no BP stable s/p 2 units of PRBCs Hbg responded up to 10.9 from 7.5 Plan POD # 1.5 s/p ex lap ileocecectomy for cecal volvulus. avss hgb 7.5 --> 10.9 after 2 units of PRBCs, hemodynamically stable postop pain controlled abdomen is soft nondistended lactate 7.9 --> 4.5 --> 1.4 CT abd/pelvis/chest negative Plan: Acute blood loss anemia postoperatively yesterday with Hgb 7.5 from 14 (preop) likely causing vasovagal yesterday. Lactic acid initially 7.9 but improved with fluid bolus and [address] scan of abd/pelvis/chest unremarkable for acute changes. Keep NGT until passing flatus given bowel distention on postop CT and the cecum was ischemic causing resection continue pain management okay for bedside commode today Continue IV fluids , will drecrease rate to 80 cc/hr given slight fluid overload incentive spirometry scds for dvt prophyalxis, will hold lovenox IV protonix BID IV antibiotics for 5 days [facility] surgery covering the weekend Dr. Ricci has seen and examined patient, agrees with above. 05/25/2023 9: 37 AM, Dr. Coronel F/U S/P ileocecectomy. POD 6 pt is doing fine, pt wants to go home today, the post-op care instruction was given, F/U Dr. Ricci 2 weeks, Discharge Instructions the discharge instruction was given. Supervising Physician Co-Signing Physician Notes I have seen and examined this patient with the surgical PA, she is dong very well. Advancing her diet today. I agree with the written plan
--- OUTSIDE RECORDS SUMMARY | 2023-05-26 10:21 | External Medical Summary | Summary of Care ---
Author Name Unknown Organization [place] [address] Care Team Providers Care Retanner Name Role Phone Christiano Sutherland DO Primary Care Provider Reason for Visit * Reason Comments eRx-Medication Refill Encounter Details Date Type Department Care Team Description 12/17/2021 Refill Dermatology [facility] [place] [address] [facility] [place] [address] Alejandro Farris MD [address] [facility] [place] [address] Adult acne Allergies Active Allergy Reactions Severity Noted Date Comments Cephalexin Anaphylaxis High Other Allergy (See Comments) 018 THIMERSOL Sulfa Antibiotics 11/04/2000 documented as of this encounter (statuses as of 12/19/2021) Medications Medication Sig Dispensed Refills Start Date End Date Status fluticasone-salmeter ol (ADVAIR DISKUS) 100-50 MCG/DOSE inhaler Inhale by mouth. 0 11/03/2013 Active nystatin-triamcinolo ne (MYCOLOG) 336998-0.1 UNIT/GM-% ointment 2 times a day. 0 03/27/2011 Active Clindamycin Phosphate 1 % gelIndications:Acne excoriee Apply topically to affected area 2 times a day. apply to affected area on the face, shoulders and arms 60 g 2 12/01/2017 Active venlafaxine (EFFEXOR) 75 MG Tablet Take 75 mg by mouth 2 times a day. 0 Active metFORMIN (GLUCOPHAGE) 500 MG Tablet Take 500 mg by mouth. 3X daily 0 Active predniSONE 20 MG Oral Tablet (DELTASONE)Indicatio ns:Dermatitis 2 pills daily w/food for 5 days, then 1 for 5 days, then 1/2 for 5 days 20 Tab 0 07/05/2020 Active Spironolactone 100 MG Oral Tablet (Aldactone)Indicatio ns:Adult acne TAKE 1 TABLET BY MOUTH 2 TIMES A DAY. WITH FOOD. 60 Tablet 0 11/20/2021 Active documented as of this encounter (statuses as of 12/19/2021) Active Problems Problem Noted Date SYST LUPUS ERYTHEMATOSIS documented as of this encounter (statuses as of 12/19/2021) Social History Tobacco Use Types Packs/Day Years Used Date Never Smoker Smokeless Tobacco: Never Used Alcohol Use Standard Drinks/Week Comments Yes 0 (1 standard drink = 0.6 oz pur e alcohol) 4 glasses a yr Sex Assigned at Date Recorded Not on file Job Start Date Occupation Industry Not on file Not on file Not on file documented as of this encounter Miscellaneous Notes * Telephone Encounter - ERIKA Chicas - 12/19/2021 4:15 PM EDT Called patient, left message to return call to schedule an appointment. * Telephone Encounter - Alejandro Farris MD - 12/17/2021 9:50 AM EDT Refused Prescriptions: Disp Refills Spironolactone 100 MG Oral Tablet (Aldacto*60 Tab*0 Sig: TAKE 1 TABLET BY MOUTH 2 TIMES A DAY. WITH FOOD. Refused By: ALEJANDRO FARRIS Reason for Refusal: Patient Should Contact Provider First * Telephone Encounter - Alejandro Farris MD - 12/17/2021 9:49 AM EDT Refused Prescriptions: Disp Refills Spironolactone 100 MG Oral Tablet (Aldacto*60 Tab*0 Sig: TAKE 1 TABLET BY MOUTH 2 TIMES A DAY. WITH FOOD. Refused By: ALEJANDRO FARRIS Reason for Refusal: Patient Should Contact Provider First * Telephone Encounter - Alejandro Farris MD - 12/17/2021 9:49 AM EDT Pt needs appt - not seen since Jun 2020 Patient Phone Numbers * Telephone Encounter - Andreea Rosenthal LPN - 12/17/2021 8:13 AM EDT Pending Prescriptions: Disp Refills Spironolactone 100 MG Oral Tablet (Aldact*60 Tab*0 Sig: TAKE 1 TABLET BY MOUTH 2 TIMES A DAY. WITH FOOD. * Telephone Encounter - Andreea Rosenthal LPN - 12/17/2021 8:11 AM EDT Pending Prescriptions: Disp Refills Spironolactone 100 MG Oral Tablet (Aldact*60 Tab*0 Sig: TAKE 1 TABLET BY MOUTH 2 TIMES A DAY. WITH FOOD. 07/05/2020 (in office), 03/08/2020 (telemedicine) Visit date not found If no future appointments scheduled, and last appointment is greater than a year ago, please schedule patient for a follow-up appointment Last date the medication was ordered: 11/20/21 Patient Phone Numbers Labs: Lab Results Component Value Date/Time CREAT 1.0 05/04/2001 09:55 AM POTASSIUM 4.0 12/10/1999 09:51 PM TSH 2.11 12/10/1999 09:51 PM documented in this encounter Plan of Treatment Health Maintenance Due Date Last Done Comments COVID-19 Vaccine (1) 1971 Depression Screening, Annual for Pts 12 and Over 1978 DTaP,Tdap,and Td Vaccines (1 - Tdap) 1985 PAP SMEAR-EVERY 3 YRS,AGES 21-65 1987 BREAST CANCER SCREENING DISC USSION YEARLY AGES 40-75 2006 Cologuard: Ages 45-75 2011 Colonoscopy: Ages 45-75 2011 Colorectal Cancer Screening (Colonoscopy 10 Years; Sigmoidoscopy 5 Years; Cologuard 3 Years; FOBT 1 Year): Ages 45-75 2011 DIABETES SCREEN EVERY 3 YRS- AGE 45 AND ABOVE 2011 FOBT: Ages 45-75 2011 LIPID SCREEN EVERY 5 YRS-WOM EN AGE 45-75 2011 Sigmoidoscopy: Ages 45-75 2011 Zoster Vaccines (1 of 2) 2016 Influenza Vaccine (FLU shot) (Season Ended) 2022 GARDASIL-HPV IMMUNIZATION SERIES Aged Out No longer eligible based on patient's age to complete this topic MENINGOCOCCAL (MENACTRA/MENVEO) Aged Out No longer eligible based on patient's age to complete this topic Pneumococcal Vaccine: Pediat rics (0 to 5 Years) and At-Risk Patients (6 to 64 Years) Aged Out No longer eligible b ased on patient's age to complete this topic documented as of this encounter Implants Not on filedocumented as of this encounter Visit Diagnoses Diagnosis Adult acne Other acne documented in this encounter Advance Directives Documents on File Type Date Recorded Patient Policy Manager Expl anation Advanced Directive Advanced Directive Care Teams Retanner Relationship Specialty Start Date End Date Christiano Sutherland DO [address] [place] [address] PCP - General Family Medicine 11/23/17 documented as of this encounter
--- OUTSIDE RECORDS SUMMARY | 2023-05-26 10:21 | External Medical Summary | Summary of Care ---
Author Name Unknown Organization [place] [address] Care Team Providers Care Machine Farmworker Name Role Phone Christiano Sutherland DO Primary Care Provider Reason for Visit * Reason Comments Follow Up recheck acne,no moreno ge.Taking Doxycyline once daily if she forget to take meds acne becomes more of a lump.Using Clindamycin gel,helps with itching and pain.Claims the only meds that helps is OCP but because of estrogen she cannot take this meds.Pt.has PCOS. Encounter Details Date Type Department Care Team Description 11/24/2019 Office Visit Dermatology [facility] [address] [place] [address] Felicia Hernandez MD [address] [place] [address] [phone] Adult acne* Allergies Active Allergy Reactions Severity Noted Date Comments Cephalexin Anaphylaxis High Other Allergy (See Comments) 018 THIMERSOL Sulfa Antibiotics 11/04/2000 documented as of this encounter (statuses as of 11/25/2019) Medications Medication Sig Dispensed Refills Start Date End Date Status MedroxyPROGESTERon e Acetate 5 MG TABS Take by mouth daily. For 12 days 0 11/23/2014 Active fluticasone-salmet isaiah (ADVAIR DISKUS) 100-50 MCG/DOSE inhaler Inhale by mouth. 0 11/03/2013 Ac tive nystatin-triamcino lone (MYCOLOG) 116630-9.1 UNIT/GM-% ointment 2 times a day. 0 03/27/2011 Ac tive Clindamycin Phosphate 1 % gelIndications:Acn e excoriee Apply topically to affected area 2 times a day. apply to affected area on the face, shoulders and arms 60 g 2 12/01/2017 Active venlafaxine (EFFEXOR) 75 MG Tablet Take 75 mg by mouth 2 times a day. 0 Active metFORMIN (GLUCOPHAGE) 500 MG Tablet Take 500 mg by mouth. 3X daily 0 Active Doxycycline Monohydrate 100 MG CapsuleIndications :Acne excoriee TAKE 1 CAPSULE BY MOUTH EVERY DAY 90 Cap 3 12/01/2018 Active spironolactone (ALDACTONE) 50 MG TabletIndications: Adult acne 1 tablet in AM, 2 in PM w/food 270 Tab 1 11/24/2019 Active spironolactone (ALDACTONE) 50 MG Tablet Take by mouth 2 times a day. 0 11/24/2019 Discontinued (Refill) lisinopril (PRINIVIL) 10 MG Tablet Take 10 mg by mouth daily. 0 11/24/2019 Discontinued (Medication List Clean Up) documented as of this encounter (statuses as of 11/25/2019) Active Problems Problem Noted Date SYST LUPUS ERYTHEMATOSIS documented as of this encounter (statuses as of 11/25/2019) Social History Tobacco Use Types Packs/Day Years Used Date Never Smoker Smokeless Tobacco: Never Used Alcohol Use Drinks/Week oz/Week Comments Yes 4 glasses a yr Sex Assigned at Date Recorded Not on file Job Start Date Occupation Industry Not on file Not on file Not on file Travel History Travel Start Travel End documented as of this encounter Progress Notes * Felicia Hernandez MD - 11/24/2019 3:02 PM EST SUBJECTIVE: History of Present Illness: Zulma Larson is a 54 year old female seen today for follow up of adult acne. Last Office Visit: 02/21/2018. Last attempted treatments include doxycycline, haven acid products, clinda gel, not much improvement, worsening on back especially. Pt picks. Hx PCOS, more hair growth along jaw, worsening acne, on spironolactone, metformin, medroxyprogesterone. Still menstruating. REVIEW OF SYSTEMS: SKIN: No other new or changing moles. HEME/LYMPH: No new or enlarging lumps or bumps. MEDICA TIONS: Current Outpatient Medications Medication Sig Dispense Refill spironolactone (ALDACTONE) 50 MG Tablet 1 tablet in AM, 2 in PM w/food 270 Tab 1 Doxycycline Monohydrate 100 MG Capsule TAKE 1 CAPSULE BY MOUTH EVERY DAY 90 Cap 3 Clindamycin Phosphate 1 % gel Apply topically to affected area 2 times a day. apply to affected area on the face, shoulders and arms 60 g 2 fluticasone-salmeterol (ADVAIR DISKUS) 100-50 MCG/DOSE inhaler Inhale by mouth. MedroxyPROGESTERone Acetate 5 MG TABS Take by mouth daily. For 12 days metFORMIN (GLUCOPHAGE) 500 MG Tablet Take 500 mg by mouth. 3X daily nystatin-triamcinolone (MYCOLOG) 090500-8.1 UNIT/GM-% ointment 2 times a day. venlafaxine (EFFEXOR) 75 MG Tablet Take 75 mg by mouth 2 times a day. ALLERG IES: Cephalexin; Other allergy (see comments); and Sulfa antibiotics OBJECTIVE: GEN: Healthy, alert, no distress, appears oriented, pleasant and cooperative. SKIN: Detailed exam of hair, face including lids and lips, neck, chest, back and bilateral upper ext. (arm, hand, fingers) completed and are normal except: 1. Shoulders, back, jawline, cheeks - eroded pink papules in various stages of healing, innumerable ASSESS MENT/PLAN: 1. Adult acne - moderate to severe, excoriated, but medroxyprogesterone likely making the acne worse. Pt will increase her spironolactone to 50 mg in AM, 100 mg in PM, explained SEs and cc:PCP. Con't doxycycline 100 mg daily w/food, consider 50 mg next visit, use azelaic acid susp OTC in AM as needed, avoid picking. Discussed sun protection with patient including proper use of sunscreens and protective clothing. *pt defers isotretinoin Follow-up: 3 months There were no barriers tolearning and no other pain was related to today's visit. The patient and/or person accompanying patient demonstrates understanding of the visit and treatment. Felicia Hernandez MD 11/24/2019 3:02 PM Ref: SELF[[id number]] [address] ADDRESS AVAILABLE None (office) None (fax) PCP: CHRISTIANO SUTHERLAND ATTILIO [address] [place] [address] [phone] documented in this encounter Nursing Notes * Monique Tesfaye RN - 11/24/2019 2:43 PM EST Patient identified by name and date of . Do you have any concerns about pain management for today's visit? No Living Will or Advance Directive for Health Care as noted on problem list. [facility] is a way you can talk to your provider online through e-mail. Would you like to sign up? I can activate it for you? YES Chief Complaint Patient presents with Follow Up recheck acne,no change.Taking Doxycyline once daily if she forget to take meds acne becomes more ofa lump.Using Clindamycin gel,helps with itching and pain.Claims the only meds that helps is OCP butbecause of estrogen she cannot take this meds.Pt.has PCOS. documented in this encounter Plan of Treatment Upcoming Encounters Date Type Specialty Care Team Description 03/08/2020 Office Visit Dermatology Felicia Hernandez MD [address] [place] [address] [phone] Health Maintenance Due Date Last Done Comments DTaP,Tdap,and Td Vaccines (1 - Tdap) 1977 PAP SMEAR-EVERY 3 YRS,AGES 21-65 1987 BREAST CANCER SCREENING DISC USSION YEARLY AGES 40-75 2006 DIABETES SCREEN EVERY 3 YRS- AGE 45 AND ABOVE 2011 LIPID SCREEN EVERY 5 YRS-WOM EN AGE 45-75 2011 Zoster Vaccines (1 of 2) 2016 *BASIC METABOLIC PANEL (BMP) FOR HTN YEARLY 12/05/2017 *COLORECTAL CANCER SCREENING (COLONOSCOPY 10 YEARS; SIGMOIDOSCOPY 5 YEARS; COLOGUARD 3 YEARS; FOBT 1 YEAR),AGES 50-75 12/05/2017 *DEPRESSION SCREENING,ANNUAL FOR PTS 12 AND OVER 12/05/2017 Influenza Vaccine (FLU shot) (#1) 2019 MENINGOCOCCAL (MENACTRA/MENVEO) Aged Out No longer eligible based on patient's age to complete this topic Pneumococcal Vaccine: Pediat rics (0 to 5 Years) and At-Risk Patients (6 to 64 Years) Aged Out No longer eligible b ased on patient's age to complete this topic documented as of this encounter Implants Not on filedocumented as of this encounter Visit Diagnoses Diagnosis Adult acne- Primary Other acne documented in this encounter Advance Directives Documents on File Type Date Recorded Patient Blanket Cutter Hand Expl anation Advanced Directive
--- OUTSIDE RECORDS SUMMARY | 2023-05-26 10:21 | External Medical Summary | Summary of Care ---
Author Name Unknown Organization [place] [address] Care Team Providers Care Policy Writer Sales Name Role Phone Christiano Sutherland DO Primary Care Provider Reason for Visit * Reason Onset Date Comments eRx-Medication Refill Medication Refill 12/12/2020 Encounter Details Date Type Department Care Team Description 12/05/2020 Refill Dermatology [facility] [place] [address] [facility] [place] [address] Alejandro Hernandez MD [address] [place] [address] [phone] Adult acne* Allergies Active Allergy Reactions Severity Noted Date Comments Cephalexin Anaphylaxis High Other Allergy (See Comments) 018 THIMERSOL Sulfa Antibiotics 11/04/2000 documented as of this encounter (statuses as of 12/12/2020) Medications Medication Sig Dispensed Refills Start Date End Date Status fluticasone-salme terol (ADVAIR DISKUS) 100-50 MCG/DOSE inhaler Inhale by mouth. 0 11/03/2013 Ac tive nystatin-triamcin olone (MYCOLOG) 357311-8.1 UNIT/GM-% ointment 2 times a day. 0 03/27/2011 Active Clindamycin Phosphate 1 % gelIndications:Ac ne excoriee Apply topically to affected area 2 times a day. apply to affected area on the face, shoulders and arms 60 g 2 12/01/2017 Active venlafaxine (EFFEXOR) 75 MG Tablet Take 75 mg by mouth 2 times a day. 0 Active metFORMIN (GLUCOPHAGE) 500 MG Tablet Take 500 mg by mouth. 3X daily 0 Active predniSONE 20 MG Oral Tablet (DELTASONE)Indica tions:Dermatitis 2 pills daily w/food for 5 days, then 1 for 5 days, then 1/2 for 5 days 20 Tab 0 07/05/2020 Active Spironolactone 100 MG Oral Tablet (Aldactone)Indica tions:Adult acne TAKE 1 TABLET BY MOUTH TWICE A DAY WITH FOOD 180 Tab 0 12/05/2020 Active Spironolactone 100 MG Oral Tablet (ALDACTONE) 1 tablet twice daily w/food 180 Tab 1 06/10/2020 12/05/2020 Discontinued documented as of this encounter (statuses as of 12/12/2020) Active Problems Problem Noted Date SYST LUPUS ERYTHEMATOSIS documented as of this encounter (statuses as of 12/12/2020) Social History Tobacco Use Types Packs/Day Years Used Date Never Smoker Smokeless Tobacco: Never Used Alcohol Use Drinks/Week oz/Week Comments Yes 4 glasses a yr Sex Assigned at Date Recorded Not on file Job Start Date Occupation Industry Not on file Not on file Not on file documented as of this encounter Miscellaneous Notes * Telephone Encounter - Pam Mitchell OSA - 12/12/2020 9:11 AM EDT Reason for patient's call patient returning call Caller was transferred to [facility] at the nurse line. * Telephone Encounter - Imer Ayoub LPN - 12/11/2020 1:22 PM EDT Letter sent * Telephone Encounter - Imer Ayoub LPN - 12/11/2020 1:20 PM EDT Patient Phone Numbers Dr Hernandez Message Refilled for 3 months - is pt on 100 mg twice daily, does she also see her PCP for BP and physicals? * Telephone Encounter - Imer Ayoub LPN - 12/11/2020 9:30 AM EDT 3rd attempt Called pt no answer. Was able to leave a message for a return call. * Telephone Encounter - Imer Ayoub LPN - 12/10/2020 10:33 AM EDT 2nd attempted no answer unable to leave vm is full * Telephone Encounter - Imer Ayoub LPN - 12/09/2020 1:13 PM EDT Attempted to call pt no answer mail box is full unable to leave a message No myg set up * Telephone Encounter - Alejandro Hernandez MD - 12/05/2020 4:02 PM EDT Signed Prescriptions: Disp Refills Spironolactone 100 MG Oral Tablet (Aldacto*180 Tab0 Sig: TAKE 1 TABLET BY MOUTH TWICE A DAY WITH FOOD Authorizing Provider: ALEJANDRO HERNANDEZ * Telephone Encounter - Alejandro Hernandez MD - 12/05/2020 4:02 PM EDT Patient Phone Numbers Refilled for 3 months - is pt on 100 mg twice daily, does she also see her PCP for BP and physicals? * Telephone Encounter - Lizeth Sultana LPN - 12/05/2020 8:22 AM EDT Pending Prescriptions: Disp Refills Spironolactone 100 MG Oral Tablet (Aldact*180 Tab1 Sig: TAKE 1 TABLET BY MOUTH TWICE A DAY WITH FOOD documented in this encounter Plan of Treatment Health Maintenance Due Date Last Done Comments DTaP,Tdap,and Td Vaccines (1 - Tdap) 1985 [...] OVER 12/05/2017 Influenza Vaccine (FLU shot) (#1) 2020 MENINGOCOCCAL (MENACTRA/MENVEO) Aged Out No longer eligible [...] Documents on File Type Date Recorded Patient Registrar College Or University Expl anation Advanced Directive Advanced Directive
--- OUTSIDE RECORDS SUMMARY | 2023-05-26 10:21 | External Medical Summary | Summary of Care ---
Author Name Unknown Organization [place] [address] Care Team Providers Care Client Technologies Analyst Name Role Phone Christiano Sutherland DO Primary Care Provider Reason for Visit * Reason Onset Date Comments eRx-Medication Refill Medication Refill 12/12/2020 Medication Refill 12/16/2020 Encounter Details Date Type Department Care Team Description 12/05/2020 Telephone Dermatology [facility] [address] [facility] [place] [address] Alejandro [facility] [address] [facility] [address] [phone] eRx-Medication Refill; Medication Refill; ... Allergies Active Allergy Reactions Severity Noted Date Comments Cephalexin Anaphylaxis High Other Allergy (See Comments) 018 THIMERSOL Sulfa Antibiotics 11/04/2000 documented as of this encounter (statuses as of 12/16/2020) Medications Medication Sig Dispensed Refills Start Date End Date Status fluticasone-salme terol (ADVAIR DISKUS) 100-50 MCG/DOSE inhaler Inhale by mouth. 0 11/03/2013 Ac tive nystatin-triamcin olone (MYCOLOG) 637893-0.1 UNIT/GM-% ointment 2 times a day. 0 [...] as of this encounter (statuses as of 12/16/2020) Active Problems Problem Noted Date SYST LUPUS ERYTHEMATOSIS documented as of this encounter (statuses as of 12/16/2020) Social History Tobacco Use Types Packs/Day Years Used Date Never Smoker Smokeless Tobacco: Never Used Alcohol Use Drinks/Week oz/Week Comments Yes 4 glasses a yr Sex Assigned at Date Recorded Not on file Job Start Date Occupation Industry Not on file Not on file Not on file documented as of this encounter Miscellaneous Notes * Telephone Encounter - Nirali Dillon OSA - 12/16/2020 10:18 AM EDT Spoke to patient. She does take the spironolactone 100mg twice a day. I informed her that 3 months supply was sent to her pharmacy. And she does see her PCP, Dr. Sutherland, every year for physicals/BP. * Telephone Encounter - Pam Mitchell OSA - 12/12/2020 9:11 AM EDT Reason for patient's call patient returning call Caller was transferred to Nirali at the clinic line. * Telephone Encounter - Imer Ayoub [...] Documents on File Type Date Recorded Patient Personal Finance Instructor Expl anation Advanced Directive Advanced Directive
--- OUTSIDE RECORDS SUMMARY | 2023-05-26 10:21 | External Medical Summary | Summary of Care ---
Author Name Unknown Organization [place] [address] Care Team Providers Care Computer Aided Design Operator Name Role Phone Christiano Sutherland DO Primary Care Provider Reason for Visit * Reason Onset Date Comments eRx-Medication Refill Medication Refill 12/12/2020 Encounter Details Date Type Department Care Team Description 12/05/2020 Refill Dermatology [facility] [place] [address] [facility] [place] [address] Alejandro Hernandez MD 200 [place] [address] [phone] Adult acne* Allergies Active Allergy Reactions Severity Noted Date Comments Cephalexin Anaphylaxis High Other Allergy (See Comments) 018 THIMERSOL Sulfa Antibiotics 11/04/2000 documented as of this encounter (statuses as of 12/12/2020) Medications Medication Sig Dispensed Refills Start Date End Date Status fluticasone-salme terol (ADVAIR DISKUS) 100-50 MCG/DOSE inhaler Inhale by mouth. 0 11/03/2013 Ac tive nystatin-triamcin olone (MYCOLOG) 108702-4.1 UNIT/GM-% ointment 2 times a day. 0 [...] Documents on File Type Date Recorded Patient Cadastral Engineer Expl anation Advanced Directive Advanced Directive
--- OUTSIDE RECORDS SUMMARY | 2023-05-26 10:21 | External Medical Summary | Summary of Care ---
Author Name Unknown Organization [place] [address] Care Team Providers Care Reaming Machine Tender Name Role Phone Christiano Sutherland DO Primary Care Provider Reason for Visit * Reason Comments Follow Up adult acne, no theodore e w/spironolactone increase- new onset of blisters, multiple areas on body x 2 weeks ago Encounter Details Date Type Department Care Team Description 07/05/2020 Office Visit Dermatology [facility] [address] [place] [address] Felicia Hernandez MD [address] [place] [address] [phone] Dermatitis*; Rash and nonspecific skin eruption Allergies Active Allergy Reactions Severity Noted Date Comments Cephalexin Anaphylaxis High Other Allergy (See Comments) 018 THIMERSOL Sulfa Antibiotics 11/04/2000 documented as of this encounter (statuses as of 07/09/2020) Medications Medication Sig Dispensed Refills Start Date End Date Status fluticasone-salmetero l (ADVAIR DISKUS) 100-50 MCG/DOSE inhaler Inhale by mouth. 0 11/03/2013 Active nystatin-triamcinolon e (MYCOLOG) 647541-1.1 UNIT/GM-% ointment 2 times a day. 0 [...] mg by mouth. 3X daily 0 Active Spironolactone 100 MG Oral Tablet (ALDACTONE) 1 tablet twice daily w/food 180 Tab 1 06/10/2020 Active predniSONE 20 MG Oral Tablet (DELTASONE)Indication s:Dermatitis 2 pills daily w/food for 5 days, then 1 for 5 days, then 1/2 for 5 days 20 Tab 0 07/05/2020 Active documented as of this encounter (statuses as of 07/09/2020) Active Problems Problem Noted Date SYST LUPUS ERYTHEMATOSIS documented as of this encounter (statuses as of 07/09/2020) Social History Tobacco Use Types Packs/Day Years Used Date Never Smoker Smokeless Tobacco: Never Used Alcohol Use Drinks/Week oz/Week Comments Yes 4 glasses a yr Sex Assigned at Date Recorded Not on file Job Start Date Occupation Industry Not on file Not on file Not on file documented as of this encounter Progress Notes * Felicia Hernandez MD - 07/05/2020 2:56 PM EDT SUBJECTIVE: History of Present Illness: Zulma Larson is a 54 year old female seen today for follow up of adult acne excoriee. Last Office/Telemedicine Visit: 03/08/2020. Pt was doing well on spironolactone until 2 weeks ago - upper body erupted in sores, itchy, has reflexively made the facial acne worse as well. Still on medroxyprogesterone Hx PCOS Hx SLE REVIEW OF SYSTEMS: SKIN: No other new or changing moles. HEME/LYMPH: No new or enlarging lumps or bumps. MEDICA TIONS: Current Outpatient Medications Medication Sig Dispense Refill Spironolactone 100 MG Oral Tablet (ALDACTONE) 1 tablet twice daily w/food 180 Tab 1 Clindamycin Phosphate 1 % gel Apply topically to affected area 2 times a day. apply to affected area on the face, shoulders and arms 60 g 2 fluticasone-salmeterol (ADVAIR DISKUS) 100-50 MCG/DOSE inhaler Inhale by mouth. metFORMIN (GLUCOPHAGE) 500 MG Tablet Take 500 mg by mouth. 3X daily nystatin-triamcinolone (MYCOLOG) 851571-4.1 UNIT/GM-% ointment 2 times a day. venlafaxine (EFFEXOR) 75 MG Tablet Take 75 mg by mouth 2 times a day. ALLERG IES: Cephalexin, Other allergy (see comments), and Sulfa antibiotics OBJECTIVE: GEN: Healthy, alert, no distress, appears oriented, pleasant and cooperative. SKIN: Detailed exam of hair, face including lids and lips, neck, chest, abdomen, back and bilateralupper ext. (arm, hand, fingers) completed and are normal except: 1. [place] papules, erosions and excoriations on upper body, lower face ASSESS MENT/PLAN: 1. Dermatitis vs. Bug vs. Drug vs. Tinea - GUALBERTO and scabies prep negative, start prednisone 40 mg taper, use only dove sensitive cleanser, vaseline to upper body, mild moisturizers to face, con't spironolactone 100 mg twice daily, benadryl po as needed for itch (pt aware of SEs of oral meds listed). *Will bx, culture, and DIF if recalcitrant. Follow-up: 3-4 weeks phone or vid There were no barriers tolearning and no other pain was related to today's visit. The patient and/or person accompanying patient demonstrates understanding of the visit and treatment. Felicia Hernandez MD 07/05/2020 2:56 PM documented in this encounter Nursing Notes * Laverne Gaspar LPN - 07/05/2020 2:53 PM EDT Chief Complaint Patient presents with Follow Up adult acne, no change w/spironolactone increase- new onset of blisters, multiple areas on body x 2 weeks ago documented in this encounter Plan of Treatment Upcoming Encounters Date Type Specialty Care Team Description 08/02/2020 Telemedicine Dermatology Felicia Hernandez MD [address] [place] [address], [place] [address] [phone] Health Maintenance Due Date Last Done Comments [...] Not on filedocumented as of this encounter Procedures Procedure Name Priority Date/Time Associated Diagnosis Comments GUALBERTO PREP (SKIN,HAIR,NAILS) Routine 07/05/2020 Rash and nonspecific skin eruption documented in this encounter Results * GUALBERTO PREP (SKIN,HAIR,NAILS) (07/05/2020) Specimen Source, POC [email or web address] Yeast and/or Hyphae, POC negative negative - negative [facility] Comments [facility] Specimen [facility] [address] [place] [address] documented in this encounter Visit Diagnoses Diagnosis Dermatitis- Primary Contact dermatitis and other eczema, due to unspecified cause Rash and nonspecific skin eruption Rash and other nonspecific skin eruption documented in this encounter Advance Directives Documents on File Type Date Recorded Patient Resolute Professional Expl anation Advanced Directive Advanced Directive
--- OUTSIDE RECORDS SUMMARY | 2023-05-26 10:21 | External Medical Summary | Summary of Care ---
Author Name Unknown Organization [place] [address] Care Team Providers Care Gin Operator Name Role Phone Christiano Scott DO Primary Care Provider Reason for Visit * Reason Comments Follow Up Encounter Details Date Type Department Care Team Description 03/08/2020 Telemedicine Dermatology [facility] [address] [place] [address] Alejandro Hernandez MD [address] [place] [address] [phone] Adult acne* Allergies Active Allergy Reactions Severity Noted Date Comments Cephalexin Anaphylaxis High Other Allergy (See Comments) 018 THIMERSOL Sulfa Antibiotics 11/04/2000 documented as of this encounter (statuses as of 03/08/2020) Medications Medication Sig Dispensed Refills Start Date End Date Status fluticasone-salmet isaiah (ADVAIR DISKUS) 100-50 MCG/DOSE inhaler Inhale by mouth. 0 11/03/2013 Active nystatin-triamcino lone (MYCOLOG) 438864-4.1 UNIT/GM-% ointment 2 times a day. 0 [...] mg by mouth. 3X daily 0 Active spironolactone (ALDACTONE) 100 MG Tablet 1 tablet twice daily w/food 180 Tab 1 03/08/2020 Active MedroxyPROGESTERon e Acetate 5 MG TABS Take by mouth daily. For 12 days 0 11/23/2014 03/08/2020 Discontinued Doxycycline Monohydrate 100 MG CapsuleIndications :Acne excoriee TAKE 1 CAPSULE BY MOUTH EVERY DAY 90 Cap 3 12/01/2018 03/08/2020 Discontinued spironolactone (ALDACTONE) 50 MG TabletIndications: Adult acne 1 tablet in AM, 2 in PM w/food 270 Tab 1 11/24/2019 03/08/2020 Discontinued documented as of this encounter (statuses as of 03/08/2020) Active Problems Problem Noted Date SYST LUPUS ERYTHEMATOSIS documented as of this encounter (statuses as of 03/08/2020) Social History Tobacco Use Types Packs/Day Years Used Date Never Smoker Smokeless Tobacco: Never Used Alcohol Use Drinks/Week oz/Week Comments Yes 4 glasses a yr Sex Assigned at Date Recorded Not on file Job Start Date Occupation Industry Not on file Not on file Not on file Travel History Travel Start Travel End COVID-19 Exposure Response Date Recorded In the last month, have you been in contact with someone who was confirmed or suspected to have Coronavirus / COVID-19? No / Unsure 03/06/2020 3:22 PM EDT documented as of this encounter Progress Notes * Alejandro Hernandez MD - 03/08/2020 3:04 PM EDT After connecting to the patient via phone, the patient verified their identity with their date of and verbally consented to evaluation and management of their condition through telemedicine. This visit was performed through Telemedicine during the COVID-19 Health Crisis during a state of National Emergency. The patient is aware that we will bill their insurance for this visit following Medicare guidelines, but they may be responsible for some or all of the visit charges if their insurancedeems this "non-covered". If pt was a minor, N/A was present. This is an established patient evaluated in my specialty within the past three years yes Visit Disposition: Routine follow-up Total call duration was 12 minutes. SUBJECTIVE: History of Present Illness: Zulma Larson is a 54 year old female seen today for follow up of adult acne. Last Office/Telemedicine Visit: 11/24/2019. Last attempted treatments include spironolactone (50 AM, 100 PM), never restarted the doxycycline, using clinda gel occasionally, haven acid wash on face, still break ing out west on shoulders. Still on medroxyprogesterone Hx PCOS Hx SLE [...] mg by mouth. 3X daily nystatin-triamcinolone (MYCOLOG) 784122-5.1 UNIT/GM-% ointment 2 times a day. venlafaxine (EFFEXOR) 75 MG Tablet Take 75 mg by mouth 2 times a day. ALLERG IES: Cephalexin; Other allergy (see comments); and Sulfa antibiotics OBJECTIVE: GEN: Healthy, alert, no distress, appears oriented, pleasant and cooperative. SKIN: by hx - chest, shoulders, jawline - pink eroded papules ASSESS MENT/PLAN: 1. Adult acne, hx PCOS - slight improvement - increase to 100 mg twice daily of spironolactone, pt declines doxycycline for now, BPO wash to skin folds in shower, haven acid wash to face, clinda gel asneeded in AM for breakouts. Follow-up: 4 months acne There were no barriers tolearning and no other pain was related to today's visit. The patient and/or person accompanying patient demonstrates understanding of the visit and treatment. Alejandro Hernandez MD 03/08/2020 3:04 PM Ref: SELF[[id number]] [address] ADDRESS AVAILABLE None (office) None (fax) PCP: CHRISTIANO SCOTT [facility] [place] [address] documented in this encounter Miscellaneous Notes * Addendum Note - Alejandro Hernandez MD - 03/08/2020 3:20 PM EDT Addended by: ALEJANDRO HERNANDEZ on: 03/08/2020 03:20 PM Modules accepted: Orders documented in this encounter Plan of Treatment [...] AND OVER 12/05/2017 Influenza Vaccine (FLU shot) (Season Ended) 2020 MENINGOCOCCAL (MENACTRA/MENVEO) Aged Out No longer [...] Documents on File Type Date Recorded Patient Acquisitions Editor Expl anation Advanced Directive
--- OUTSIDE RECORDS SUMMARY | 2023-05-26 10:21 | External Medical Summary | Summary of Care ---
Author Name Unknown Organization [place] [address] Care Team Providers Care Shale Planer Operator Helper Name Role Phone Christiano Sutherland DO Primary Care Provider Reason for Visit * Reason Comments eRx-Medication Refill Encounter Details Date Type Department Care Team Description 03/25/2021 Refill Dermatology [facility] [place] [address] [facility] [place] [address] Alejandro Farris MD [address] [place] [address] [phone] Adult acne Allergies Active Allergy Reactions Severity Noted Date Comments Cephalexin Anaphylaxis High Other Allergy (See Comments) 018 THIMERSOL Sulfa Antibiotics 11/04/2000 documented as of this encounter (statuses as of 03/25/2021) Medications Medication Sig Dispensed Refills Start Date End Date Status fluticasone-salme terol (ADVAIR DISKUS) 100-50 MCG/DOSE inhaler Inhale by mouth. 0 11/03/2013 Ac tive nystatin-triamcin olone (MYCOLOG) 200051-8.1 UNIT/GM-% ointment 2 times a day. 0 [...] A DAY WITH FOOD 180 Tab 0 03/25/2021 Active Spironolactone 100 MG Oral Tablet (Aldactone)Indica tions:Adult acne TAKE 1 TABLET BY MOUTH TWICE A DAY WITH FOOD 180 Tab 0 03/03/2021 03/25/2021 Discontinued documented as of this encounter (statuses as of 03/25/2021) Active Problems Problem Noted Date SYST LUPUS ERYTHEMATOSIS documented as of this encounter (statuses as of 03/25/2021) Social History Tobacco Use Types Packs/Day Years Used Date Never Smoker Smokeless Tobacco: Never Used Alcohol Use Drinks/Week oz/Week Comments Yes 4 glasses a yr Sex Assigned at Date Recorded Not on file Job Start Date Occupation Industry Not on file Not on file Not on file documented as of this encounter Miscellaneous Notes * Telephone Encounter - Alejandro Farris MD - 03/25/2021 1:18 PM EDT Signed Prescriptions: Disp Refills Spironolactone 100 MG Oral Tablet (Aldacto*180 Tab0 Sig: TAKE 1 TABLET BY MOUTH TWICE A DAY WITH FOOD Authorizing Provider: ALEJANDRO FARRIS * Telephone Encounter - Andreea Rosenthal LPN - 03/25/2021 10:52 AM EDT Pending Prescriptions: Disp Refills Spironolactone 100 MG Oral Tablet (Aldact*180 Tab0 Sig: TAKE 1 TABLET BY MOUTH TWICE A DAY WITH FOOD * Telephone Encounter - Andreea Rosenthal LPN - 03/25/2021 10:51 AM EDT Pending Prescriptions: Disp Refills Spironolactone 100 MG Oral Tablet (Aldact*180 Tab0 Sig: TAKE 1 TABLET BY MOUTH TWICE A DAY WITH FOOD Last Office/Telemedicine Visit: 07/05/2020 Next Office Visit: No Future Appointments If no future appointments scheduled, and last appointment is greater than a year ago, please schedule patient for a follow-up appointment Last date the medication was ordered: 03/03/21 Patient Phone Numbers Labs: Lab Results Component Value Date/Time CREAT 1.0 05/04/2001 09:55 AM POTASSIUM 4.0 12/10/1999 09:51 PM TSH 2.11 12/10/1999 09:51 PM documented in this encounter Plan of Treatment Health Maintenance Due Date Last Done Comments COVID-19 Vaccine (1) 1978 DTaP,Tdap,and Td Vaccines (1 - Tdap) [...] OVER 12/05/2017 Influenza Vaccine (FLU shot) (#1) 2021 MENINGOCOCCAL (MENACTRA/MENVEO) Aged Out No longer eligible [...] Documents on File Type Date Recorded Patient Fine Patcher Expl anation Advanced Directive Advanced Directive
--- OUTSIDE RECORDS SUMMARY | 2023-05-26 10:21 | External Medical Summary | Summary of Care ---
Author Name Unknown Organization [place] [address] Phone Care Team Providers Care Appraiser Auditor Name Role Phone Christiano Sutherland Attadrianne DO Primary Care Provider Reason for Visit * Reason Comments eRx-Medication Refill Encounter Details Date Type Department Care Team Description 04/04/2018 Refill Dermatology [facility] [address] [place] [address] Sita Parks MD [address] [place] [address] [phone] Acne excoriee Allergies Active Allergy Reactions Severity Noted Date Comments Cephalexin Anaphylaxis High Other Allergy (See Comments) 018 THIMERSOL Sulfa Antibiotics 11/04/2000 as of this encounter Medications Prescription Sig. Disp. Refills Start Date End Date Status spironolactone (ALDACTONE) 50 MG Tablet Take by mouth 2 times a day. Active MedroxyPROGESTERone Acetate 5 MG TABS Take by mouth daily. For 12 days 11/23/2014 Active fluticasone-salmete rol (ADVAIR DISKUS) 100-50 MCG/DOSE inhaler Inhale by mouth. 11/03/2013 Active nystatin-triamcinol one (MYCOLOG) 275804-1.1 UNIT/GM-% ointment 2 times a day. 03/27/2011 Ac tive Clindamycin Phosphate 1 % gelIndications:Acne excoriee Apply topically to affected area 2 times a day. apply to affected area on the face, shoulders and arms 60 g 2 12/01/2017 Active venlafaxine (EFFEXOR) 75 MG Tablet Take 75 mg by mouth 2 times a day. Active lisinopril (PRINIVIL) 10 MG Tablet Take 10 mg by mouth daily. Active metFORMIN (GLUCOPHAGE) 500 MG Tablet Take 500 mg by mouth. 3X daily Active Doxycycline Monohydrate 100 MG CapsuleIndications: Acne excoriee TAKE 1 CAP BY MOUTH DAILY. 30 Cap 3 04/05/2018 Active Doxycycline Monohydrate 100 MG CapsuleIndications: Acne excoriee Take 1 Cap by mouth daily. 30 Cap 3 12/01/2017 04/04/2018 Discontinued as of this encounter Active Problems Problem Noted Date SYST LUPUS ERYTHEMATOSIS as of this encounter Social History Tobacco Use Types Packs/Day Years Used Date Never Smoker Smokeless Tobacco: Never Used Alcohol Use Drinks/Week oz/Week Comments Yes 4 glasses a yr Sex Assigned at Date Recorded Not on file as of this encounter Miscellaneous Notes * Telephone Encounter - Sita Parks MD - 04/05/2018 9:47 AM EDT Signed Prescriptions: Disp Refills Doxycycline Monohydrate 100 MG Capsule 30 Cap 3 Sig: TAKE 1 CAP BY MOUTH DAILY. Authorizing Provider: SITA PARKS * Telephone Encounter - Debra Moreno LPN - 04/05/2018 9:24 AM EDT Pending Prescriptions: Disp Refills Doxycycline Monohydrate 100 MG Capsule [P*30 Cap 3 Sig: TAKE 1 CAP BY MOUTH DAILY. * Telephone Encounter - Debra Moreno LPN - 04/05/2018 9:23 AM EDT Pending Prescriptions: Disp Refills Doxycycline Monohydrate 100 MG Capsule [P*30 Cap 3 Sig: TAKE 1 CAP BY MOUTH DAILY. Last Office Visit: 02/21/2018 Next Office Visit: No Future Appointments in this encounter Plan of Treatment Health Maintenance Due Date Last Done Comments DTaP,Tdap,and Td Vaccines (1 - Tdap) 1985 PAP SMEAR-EVERY 3 YRS,AGES 21-65 1987 BREAST CANCER SCREENING DISCUSSION YEARLY AGES 40-75 1 10/08/2005 DIABETES SCREEN EVERY 3 YRS-AGE 45 AND ABOVE 1 LIPID SCREEN EVERY 5 YRS-WOMEN AGE 45-75 2011 *BASIC METABOLIC PANEL (BMP) FOR HTN YEARLY 12/05/2017 *COLORECTAL CANCER SCREENING (COLONOSCOPY 10 YEARS; SIGMOIDOSCOPY 5 YEARS; COLOGUARD 3 YEARS; FOBT 1 YEAR),AGES 50-75 12/05/2017 *DEPRESSION SCREENING, ANNUAL FOR PTS 18 AND OVER 11/18 Influenza Vaccine (FLU shot) (#1) 2018 as of this encounter Implants Not on fileas of this encounter Visit Diagnoses Diagnosis Acne excoriee Other acne in this encounter
--- OUTSIDE RECORDS SUMMARY | 2023-05-26 10:21 | External Medical Summary | Summary of Care ---
Author Name Unknown Organization [place] [address] Care Team Providers Care State Editor Name Role Phone Christiano Sutherland Attadrianne DO Primary Care Provider Reason for Visit * Reason Comments Medication Refill Encounter Details Date Type Department Care Team Description 11/20/2019 Refill Dermatology [facility] [address] [place] [address] Tu Vences MD [address] [place] [address] [phone] Acne excoriee Allergies Active Allergy Reactions Severity Noted Date Comments Cephalexin Anaphylaxis High Other Allergy (See Comments) 018 THIMERSOL Sulfa Antibiotics 11/04/2000 documented as of this encounter (statuses as of 11/22/2019) Medications Medication Sig Dispensed Refills Start Date End Date Status spironolactone (ALDACTONE) 50 MG Tablet Take by mouth 2 times a day. 0 Active MedroxyPROGESTERone Acetate 5 MG TABS Take by mouth daily. For 12 days 0 11/23/2014 Active fluticasone-salmetero l (ADVAIR DISKUS) 100-50 MCG/DOSE inhaler Inhale by mouth. 0 11/03/2013 Active nystatin-triamcinolon e (MYCOLOG) 140683-0.1 UNIT/GM-% ointment 2 times a day. 0 03/27/2011 Active Clindamycin Phosphate 1 % gelIndications:Acne excoriee Apply topically to affected area 2 times a day. apply to affected area on the face, shoulders and arms 60 g 2 12/01/2017 Active venlafaxine (EFFEXOR) 75 MG Tablet Take 75 mg by mouth 2 times a day. 0 Active lisinopril (PRINIVIL) 10 MG Tablet Take 10 mg by mouth daily. 0 Active metFORMIN (GLUCOPHAGE) 500 MG Tablet Take 500 mg by mouth. 3X daily 0 Active Doxycycline Monohydrate 100 MG CapsuleIndications:Ac ne excoriee TAKE 1 CAPSULE BY MOUTH EVERY DAY 90 Cap 3 12/01/2018 Active documented as of this encounter (statuses as of 11/22/2019) Active Problems Problem Noted Date SYST LUPUS ERYTHEMATOSIS documented as of this encounter (statuses as of 11/22/2019) Social History Tobacco Use Types Packs/Day Years Used Date Never Smoker Smokeless Tobacco: Never Used Alcohol Use Drinks/Week oz/Week Comments Yes 4 glasses a yr Sex Assigned at Date Recorded Not on file Job Start Date Occupation Industry Not on file Not on file Not on file Travel History Travel Start Travel End documented as of this encounter Miscellaneous Notes * Telephone Encounter - Nirali Dillon OSA - 11/22/2019 8:46 AM EST Called patient, left message to return call to schedule f/u appt. * Telephone Encounter - Nirali Dillon OSA - 11/20/2019 1:29 PM EST Called patient, left message to return call. * Telephone Encounter - Imer Ayoub LPN - 11/20/2019 12:45 PM EST Please nancy an appt * Telephone Encounter - Tu Vences MD - 11/20/2019 12:37 PM EST Refused Prescriptions: Disp Refills Doxycycline Monohydrate 100 MG Capsule 90 Cap 3 Sig: Take 1 Cap by mouth daily. Refused By: TU VENCES Reason for Refusal: Appt. Required, please call patient * Telephone Encounter - Tu Vences MD - 11/20/2019 12:36 PM EST Pt last seen by Dr. Sainz 02/21/18 so needs a follow-up visit with any provider or PCP can prescribe. * Telephone Encounter - Nirali Dillon OSA - 11/20/2019 12:32 PM EST Received fax from [facility] requesting refill of doxycycline (90 day supply). documented in this encounter Plan of Treatment [...] as of this encounter Visit Diagnoses Diagnosis Acne excoriee Other acne documented in this encounter
--- OUTSIDE RECORDS SUMMARY | 2023-05-26 10:21 | External Medical Summary | Summary of Care ---
Author Name Unknown Organization [place] [address] Care Team Providers Care Rn Referral Name Role Phone Christiano Scott DO Primary Care Provider Reason for Visit * Reason Comments Follow Up Encounter Details Date Type Department Care Team Description 03/08/2020 Telemedicine Dermatology [facility] [address] [place] [address] Alejandro Hernandez MD [address] [place] [address] [phone] Adult acne* Allergies Active Allergy Reactions Severity Noted Date Comments Cephalexin Anaphylaxis High Other Allergy (See Comments) 018 THIMERSOL Sulfa Antibiotics 11/04/2000 documented as of this encounter (statuses as of 03/08/2020) Medications Medication Sig Dispensed Refills Start Date End Date Status fluticasone-salmet isaiah (ADVAIR DISKUS) 100-50 MCG/DOSE inhaler Inhale by mouth. 0 11/03/2013 Active nystatin-triamcino lone (MYCOLOG) 275588-6.1 UNIT/GM-% ointment 2 times a day. 0 [...] mg by mouth. 3X daily nystatin-triamcinolone (MYCOLOG) 042481-8.1 UNIT/GM-% ointment 2 times a day. venlafaxine [...] Alejandro Hernandez MD 03/08/2020 3:04 PM Ref: SELF[[id number]] [address] ADDRESS AVAILABLE None (office) None (fax) PCP: CHRISTIANO SCOTT [facility] [place] [address] documented in this encounter Miscellaneous Notes [...] Documents on File Type Date Recorded Patient Mud Analysis Well Logging Captain Expl anation Advanced Directive
--- OUTSIDE RECORDS SUMMARY | 2023-05-26 10:21 | External Medical Summary | Summary of Care ---
Author Name Unknown Organization [place] [address] Care Team Providers Care District Resource Officer Name Role Phone Christiano Sutherland DO Primary Care Provider Reason for Visit * Reason Comments eRx-Medication Refill Encounter Details Date Type Department Care Team Description 11/30/2018 Refill Dermatology [facility] [address] [place] [address] Sita Sainz MD [address] [place] [address] [phone] Acne excoriee Allergies Active Allergy Reactions Severity Noted Date Comments Cephalexin Anaphylaxis High Other Allergy (See Comments) 018 THIMERSOL Sulfa Antibiotics 11/04/2000 documented as of this encounter (statuses as of 12/01/2018) Medications Medication Sig Dispensed Refills Start Date End Date Status spironolactone (ALDACTONE) 50 MG Tablet Take by mouth 2 times a day. 0 Active MedroxyPROGESTERon e Acetate 5 MG TABS Take by mouth daily. For 12 days 0 11/23/2014 Active fluticasone-salmet isaiah (ADVAIR DISKUS) 100-50 MCG/DOSE inhaler Inhale by mouth. 0 11/03/2013 Active nystatin-triamcino lone (MYCOLOG) 950514-2.1 UNIT/GM-% ointment 2 times a day. 0 [...] EVERY DAY 90 Cap 3 12/01/2018 Active Doxycycline Monohydrate 100 MG CapsuleIndications :Acne excoriee TAKE 1 CAPSULE BY MOUTH EVERY DAY 30 Cap 3 07/29/2018 11/30/2018 Discontinued documented as of this encounter (statuses as of 12/01/2018) Active Problems Problem Noted Date SYST LUPUS ERYTHEMATOSIS documented as of this encounter (statuses as of 12/01/2018) Social History Tobacco Use Types Packs/Day Years [...] Miscellaneous Notes * Telephone Encounter - Sita Sainz MD - 12/01/2018 8:50 AM EDT Signed Prescriptions: Disp Refills Doxycycline Monohydrate 100 MG Capsule 90 Cap 3 Sig: TAKE 1 CAPSULE BY MOUTH EVERY DAY Authorizing Provider: SITA SAINZ * Telephone Encounter - Ciera Chan LPN - 12/01/2018 8:44 AM EDT Pending Prescriptions: Disp Refills Doxycycline Monohydrate 100 MG Capsule [P*90 Cap 3 Sig: TAKE 1 CAPSULE BY MOUTH EVERY DAY * Telephone Encounter - Ciera Chan LPN - 12/01/2018 8:43 AM EDT Pending Prescriptions: Disp Refills Doxycycline Monohydrate 100 MG Capsule [P*30 Cap 3 Sig: TAKE 1 CAPSULE BY MOUTH EVERY DAY Last Office Visit: 02/21/2018 Next Office Visit: No Future Appointments Last date the medication was ordered: 07/29/18 Patient Active Problem List Diagnosis Code SYST LUPUS ERYTHEMATOSIS M32.9 Labs: CREATININE(mg/dL) Gi Dt/Tm Resulted Value Status 05/04/01 9:55A 05/04/01 1.0 FINAL POTASSIUM(mmol/L) Gi Dt/Tm Resulted Value Status 12/10/99 9:51P 12/10/99 4.0 FINAL TSH(uIU/mL) Gi Dt/Tm Resulted Value Status 12/10/99 9:51P 12/11/99 2.11 FINAL No LDL components found No ALT components found Hemoglobin AIC Results: No HEMOGLOBIN, A1C components found documented in this encounter Plan of Treatment Health Maintenance Due Date Last Done Comments DTaP,Tdap,and Td Vaccines (1 - Tdap) 1985 PAP SMEAR-EVERY 3 YRS,AGES 21-65 1987 BREAST CANCER SCREENING DISC USSION YEARLY AGES 40-75 2006 DIABETES SCREEN EVERY 3 YRS- AGE 45 AND ABOVE 2011 LIPID SCREEN EVERY 5 YRS-WOM EN AGE 45-75 2011 *BASIC METABOLIC PANEL (BMP) FOR HTN YEARLY 12/05/2017 *COLORECTAL CANCER SCREENING (COLONOSCOPY 10 YEARS; SIGMOIDOSCOPY 5 YEARS; COLOGUARD 3 YEARS; FOBT 1 YEAR),AGES 50-75 12/05/2017 *DEPRESSION SCREENING, ANNUA Citlali FOR PTS 18 AND OVER 12/05/2017 Influenza Vaccine (FLU shot) (#1) 2018 MENINGOCOCCAL (MENACTRA) Aged Out No longer eligible based on patient's age to complete this topic documented as of this encounter Implants Not on filedocumented as of this encounter Visit Diagnoses Diagnosis Acne excoriee Other acne documented in this encounter
--- OUTSIDE RECORDS SUMMARY | 2023-05-26 10:21 | External Medical Summary | Summary of Care ---
Author Name Unknown Organization [place] [address] Care Team Providers Care Air Route Controller Name Role Phone Christiano Sutherland DO Primary Care Provider Reason for Visit * Reason Comments eRx-Medication Refill Encounter Details Date Type Department Care Team Description 12/05/2020 Refill Dermatology [facility] [address] [facility] [place] [address] Alejandro Farris MD [address] [place] [address] [phone] Adult acne* Allergies Active Allergy Reactions Severity Noted Date Comments Cephalexin Anaphylaxis High Other Allergy (See Comments) 018 THIMERSOL Sulfa Antibiotics 11/04/2000 documented as of this encounter (statuses as of 12/11/2020) Medications Medication Sig Dispensed Refills Start Date End Date Status fluticasone-salme terol (ADVAIR DISKUS) 100-50 MCG/DOSE inhaler Inhale by mouth. 0 11/03/2013 Ac tive nystatin-triamcin olone (MYCOLOG) 014379-4.1 UNIT/GM-% ointment 2 times a day. 0 [...] as of this encounter (statuses as of 12/11/2020) Active Problems Problem Noted Date SYST LUPUS ERYTHEMATOSIS documented as of this encounter (statuses as of 12/11/2020) Social History Tobacco Use Types Packs/Day Years Used Date Never Smoker Smokeless Tobacco: Never Used Alcohol Use Drinks/Week oz/Week Comments Yes 4 glasses a yr Sex Assigned at Date Recorded Not on file Job Start Date Occupation Industry Not on file Not on file Not on file documented as of this encounter Miscellaneous Notes * Telephone Encounter - Imer Ayoub LPN - 12/11/2020 1:22 PM EDT Letter sent * Telephone Encounter - Imer Ayoub LPN - 12/11/2020 1:20 PM EDT Patient Phone Numbers Dr Farris Message Refilled for 3 months - is [...] set up * Telephone Encounter - Alejandro Farris MD - 12/05/2020 4:02 PM EDT Signed Prescriptions: Disp Refills Spironolactone 100 MG Oral Tablet (Aldacto*180 Tab0 Sig: TAKE 1 TABLET BY MOUTH TWICE A DAY WITH FOOD Authorizing Provider: ALEJANDRO FARRIS * Telephone Encounter - Alejandro Farris MD - 12/05/2020 4:02 PM EDT Patient [...] Documents on File Type Date Recorded Patient Low Pressure Boiler Tender Expl anation Advanced Directive Advanced Directive
--- OUTSIDE RECORDS SUMMARY | 2023-05-26 10:21 | External Medical Summary | Summary of Care ---
Author Name Unknown Organization [place] [address] Care Team Providers Care Wound Care Physician Name Role Phone Christiano Sutherland DO Primary Care Provider Reason for Visit * Reason Comments Medication Refill Medication Refill Encounter Details Date Type Department Care Team Description 11/20/2019 Refill Dermatology [facility] [address] [place] [address] Tu Vences MD [address] [place] [address] [phone] Acne excoriee Allergies Active Allergy Reactions Severity [...] mouth. 0 11/03/2013 Active nystatin-triamcinolon e (MYCOLOG) 382950-4.1 UNIT/GM-% ointment 2 times a day. 0 [...] encounter Miscellaneous Notes * Telephone Encounter - Jasmin Haskins OSA - 11/22/2019 10:16 AM EST Patient returned call and scheduled for Thursday 11/23 * Telephone Encounter - Nirali Dillon OSA [...] 11/20/2019 12:32 PM EST Received fax from [facility] pharmacy requesting refill of doxycycline (90 day supply). documented in this encounter Plan of Treatment Upcoming Encounters Date Type Specialty Care Team Description 11/24/2019 Office Visit Dermatology Felicia Hernandez MD 200 [facility] [place] [address] [phone] Health Maintenance Due Date Last Done Comments [...]
--- OUTSIDE RECORDS SUMMARY | 2023-05-26 10:21 | External Medical Summary | Summary of Care ---
Author Name Unknown Organization [place] [address] Care Team Providers Care Landscaping Manager Name Role Phone Christiano Sutherland DO Primary Care Provider Reason for Visit * Reason Onset Date Comments Med Request 06/10/2020 Encounter Details Date Type Department Care Team Description 06/10/[address] [facility] [address] [place] [address] Felicia Hernandez MD [address] [place] [address] [phone] Med Request Allergies Active Allergy Reactions Severity Noted Date Comments Cephalexin Anaphylaxis High Other Allergy (See Comments) 018 THIMERSOL Sulfa Antibiotics 11/04/2000 documented as of this encounter (statuses as of 08/02/2020) Medications Medication Sig Dispensed Refills Start Date End Date Status fluticasone-salme terol (ADVAIR DISKUS) 100-50 MCG/DOSE inhaler Inhale by mouth. 0 11/03/2013 Ac tive nystatin-triamcin olone (MYCOLOG) 490862-3.1 UNIT/GM-% ointment 2 times a day. 0 [...] daily w/food 180 Tab 1 06/10/2020 Active spironolactone (ALDACTONE) 100 MG Tablet 1 tablet twice daily w/food 180 Tab 1 03/08/2020 06/10/2020 Discontinued (Refill) documented as of this encounter (statuses as of 08/02/2020) Active Problems Problem Noted Date SYST LUPUS ERYTHEMATOSIS documented as of this encounter (statuses as of 08/02/2020) Social History Tobacco Use Types Packs/Day Years Used Date Never Smoker Smokeless Tobacco: Never Used Alcohol Use Drinks/Week oz/Week Comments Yes 4 glasses a yr Sex Assigned at Date Recorded Not on file Job Start Date Occupation Industry Not on file Not on file Not on file documented as of this encounter Miscellaneous Notes * Telephone Encounter - Linette Brown LPN - 06/10/2020 1:08 PM EDT Patient spironolactone 50 was D/C. Looks like she takes 100mg currently. Last refilled 03/08/20. I pended if you are in agreement * Telephone Encounter - Aislinn Plummer PHARM Tech - 06/10/2020 12:56 PM EDT Pt calling to request refills for spironolactone 50mg. Upon chart review, medication is listed as discontinued, with discontinuation reason as "none". Please advise if you wish to continue this therapy for the patient. Patient can be reached at [phone] for any further questions or concerns. Thank you, Aislinn Plummer Floor Coverings Salesperson [facility] 06/10/2020, 12:56 PM documented in this encounter Plan of [...] Not on filedocumented as of this encounter Advance Directives Documents on File Type Date Recorded Patient Teacher Asst Expl anation Advanced Directive Advanced Directive
--- OUTSIDE RECORDS SUMMARY | 2023-05-26 10:21 | External Medical Summary | Summary of Care ---
Author Name Unknown Organization [place] [address] Care Team Providers Care Television Operator Name Role Phone Christiano Sutherland DO Primary Care Provider Reason for Visit * Reason Comments eRx-Medication Refill Encounter Details Date Type Department Care Team Description 12/17/2021 Refill Dermatology [facility] [place] [address] [facility] [place] [address] Alejandro Farris MD 200 [facility] [place] [address] Adult acne Allergies Active Allergy Reactions Severity Noted Date Comments Cephalexin Anaphylaxis High Other Allergy (See Comments) 018 THIMERSOL Sulfa Antibiotics 11/04/2000 documented as of this encounter (statuses as of 12/23/2021) Medications Medication Sig Dispensed Refills Start Date End Date Status fluticasone-salmeter ol (ADVAIR DISKUS) 100-50 MCG/DOSE inhaler Inhale by mouth. 0 11/03/2013 Active nystatin-triamcinolo ne (MYCOLOG) 085956-4.1 UNIT/GM-% ointment 2 times a day. 0 [...] as of this encounter (statuses as of 12/23/2021) Active Problems Problem Noted Date SYST LUPUS ERYTHEMATOSIS documented as of this encounter (statuses as of 12/23/2021) Social History Tobacco Use Types Packs/Day Years [...] * Telephone Encounter - ERIKA Chicas - 12/23/2021 11:08 AM EDT Called patient, left message to return call. * Telephone Encounter - ERIKA Chicas - [...] Documents on File Type Date Recorded Patient Motor Room Controller Expl anation Advanced Directive Advanced Directive Care Teams Television Operator Relationship Specialty Start Date End Date Christiano Sutherland, [address] [place] [address] PCP - General Family Medicine 11/23/17 documented as of this encounter
--- OUTSIDE RECORDS SUMMARY | 2023-05-26 10:22 | External Medical Summary | Summary of Care ---
Author Name Unknown Organization [place] [address] Phone Care Team Providers Care Triage Clinician Name Role Phone Mat Sutherland Attilio DO Primary Care Provider Reason for Visit * Reason Comments NEW PATIENT Referred by Dr.Phili keli Sutherland re.skin rash (acne-like) on most part of her body due to her polycystic ovarian syndrome.Duration:started when stopped stopped Estrogen (due to intense migraine) about 2 years ago.Pt.is just on Progesterone.Treatment:Doxycycline (low dose) helped.Stopped taking Doxy when she ran out .Was being seen by till insurance changed.For full body skin check.Family hx of MM in father. Encounter Details Date Type Department Care Team Description 12/01/2017 Office Visit Dermatology [facility] [address] [place] [address] Sita Sainz MD [address] [place] [address] [phone] Acne excoriee*;Dermatofibr analilia Allergies Active Allergy Reactions Severity Noted Date Comments Cephalexin Anaphylaxis High Sulfa Antibiotics 11/04/2000 Thimersol [Other] 11/04/2000 as of this encounter Medications Prescription Sig. Disp. Refills Start Date End Date Status spironolactone (ALDACTONE) 50 MG Tablet Take by mouth 2 times a day. Active MedroxyPROGESTERone Acetate 5 MG TABS Take by mouth daily. For 12 days 11/23/2014 Active fluticasone-salmete rol (ADVAIR DISKUS) 100-50 MCG/DOSE inhaler Inhale by mouth. 11/03/2013 Active nystatin-triamcinol one (MYCOLOG) 218394-6.1 UNIT/GM-% ointment 2 times a day. 03/27/2011 Ac tive Doxycycline Monohydrate 100 MG CapsuleIndications: Acne excoriee Take 1 Cap by mouth daily. 30 Cap 3 12/01/2017 Active Clindamycin Phosphate 1 % gelIndications:Acne excoriee [...] 500 mg by mouth. 3X daily Active NAPROSYN TABS 500 MG OR prn 12/01/2017 Discontinued as of this encounter Active Problems Problem Noted Date SYST LUPUS ERYTHEMATOSIS as of this encounter Social History Tobacco Use Types Packs/Day Years Used Date Never Smoker Alcohol Use Drinks/Week oz/Week Comments Yes 4 glasses a yr Sex Assigned at Date Recorded Not on file as of this encounter Progress Notes * Sita Sainz MD - 12/01/2017 9:15 AM EDT Formatting of this note may be different from the original. SUBJECTIVE: HPI: Zulma Larson is a 52 year old female. Pt seen at the request of Self for evaluation and treatment of a rash . Pt states an acne type rash on the face, chest,upper back and arms for a duration of about 2 years.Pt suffers from PCOS - and was taken off Estrogen due to migraines. She was started on Progesterone= she feels the lesion started after that change. She was seen Dr. Arthur She was placed on Doxy 50mg and then increased to Doxy 100mg = she did well and was improved until she ran out of medications Treatment currently is salicylic acid wash She feels she has white hard bumps and pimples that she drains Pt also complains of a hard bump on the right lower leg - she had thought about using an Exacto knife to open the area REVIEW OF SYSTEMS: SKIN: No other new or changing moles. HEME/LYMPH: No new or enlarging lumps or bumps. CONSTITUTIONAL: No nausea, vomiting, fevers, chills, diarrhea. No recent unintended weight loss, night sweats, appetite or malaise. Past Medical History: Diagnosis Date SYSTEMIC LUPUS ERYTHEMATOSUS FAMILY HISTORY: Skin CA: None Skin Disorders: none SOCIAL HISTORY: Social History Substance Use Topics Smoking status: Never Smoker Smokeless tobacco: Not on file Alcohol use Yes Comment: 4 glasses a yr MEDICA TIONS: Current Outpatient Prescriptions Medication Sig Dispense Refill NAPROSYN TABS 500 MG OR prn ALLERG Y: Sulfa antibiotics and Thimersol [other] OBJECTIVE: GEN: Healthy, alert, no distress, appears oriented, pleasant and cooperative. SKIN: Detailed exam of hair, face including lids and lips, neck, chest, abdomen, back, bilateral upper ext. (arm, hand, fingers) and bilateral lower ext. (leg, foot, toes) completed and are normal except: 1. Face, upper back and shoulders - scattered inflammatory papules and pustules with background of post-inflammatory hyperpigmentation 2. Right lower leg Firm dermal papule that dimples with lateral pressure ASSESS MENT/PLAN: 1. (L70.5) Acne excoriee (primary encounter diagnosis) Plan: Doxycycline Monohydrate 100 MG Capsule, Clindamycin Phosphate 1 % gel 1. Doxycycline can be very irritating to your stomach, take this medicine with food, after eating ameal. 2. Doxycycline may make your skin more sensitive to sunlight (you will sun burn more easily and quickly than usual. To prevent this avoid sun exposure, use high SPF sunscreen. If burning is a problemthe medication may have to be changed. 3. Do not lie down immediately after taking doxycycline, remain upright for at least 30 minutes. Continue - salicylic acid and Benzoyl peroxide wash 2. (D23.9) Dermatofibroma Plan: Benign nature was discussed and no further intervention needed. Advised to call with any changes. Follow-up: 3 months There were no barriers tolearning and no other pain was related to today's visit. The patient and/or person accompanying patient demonstrates understanding of the visit and treatment. Sita Sainz MD 12/01/2017 9:16 AM Ref: SELF[[id number]] NO STREET ADDRESS AVAILABLE None (office) None (fax) PCP: MAT SUTHERLAND [address] [place] [address] Dr [place], [place] [address] in this encounter Nursing Notes * Monique Tesfaye, RN - 12/01/2017 9:13 AM EDT Formatting of this note may be different from the original. Do you have any concerns about pain management for today's visit? No Living Will or Advance Directive for Health Care as noted on problem list. [facility] is a way you can talk to your provider on line through e-mail. Would you like to sign up? I can activate it for you? DECLINES Chief Complaint Patient presents with NEW PATIENT Referred by Dr.Philip Sutherland re.skin rash (acne-like) on most part of her body due to her polycystic ovarian syndrome.Duration:started when stopped stopped Estrogen (due to intense migraine) about 2 years ago.Pt.is just on Progesterone.Treatment:Doxycycline (low dose) helped.Stopped taking Doxy when she ran out .Was being seen by till insurance changed.For full body skin check.Family hx of MM in father. in this encounter Plan of Treatment Upcoming Encounters Date Type Specialty Care Team Description 02/21/2018 Office Visit Dermatology Sita Sainz MD 200 [place] [place] [address] [phone] Health Maintenance Due Date Last Done Comments DTaP,Tdap,and Td Vaccines (1 - Tdap) 1985 PAP SMEAR-EVERY 3 YRS,AGES 21-65 1987 BREAST CANCER SCREENING DISCUSSION YEARLY AGES 40-75 1 10/08/2005 DIABETES SCREEN EVERY 3 YRS-AGE 45 AND ABOVE 1 LIPID SCREEN EVERY 5 YRS-WOMEN AGE 45-75 2011 Influenza Vaccine (FLU shot) (#1) 2017 as of this encounter Implants Not on fileas of this encounter Visit Diagnoses Diagnosis Acne excoriee - Primary Other acne Dermatofibroma Benign neoplasm of skin, site unspecified in this encounter Insurance Payer Benefit Plan / Group Subscriber ID Type Phone Address [facility] [place] [id number] [phone] [facility] [place] [address] as of this encounter
--- OUTSIDE RECORDS SUMMARY | 2023-05-26 10:22 | External Medical Summary | Summary of Care ---
Author Name Unknown Organization [place] [address] Phone Care Team Providers Care Cellophane Bag Machine Operator Name Role Phone Unavailable Primary Care Provider Unavailabl e Encounter Details Date Type Department Care Team Description 07/21/2017 Scan Encounter Dermatology [facility] [address] [facility] [place] [address] Sean Adan MD [address] [place] [address] [phone] <No scans attached> Allergies Active Allergy Reactions Severity Noted Date Comments Sulfa Antibiotics 11/04/2000 Thimersol [Other] 11/04/2000 as of this encounter Medications Prescription Sig. Disp. Refills Start Date End Date Status NAPROSYN TABS 500 MG OR prn A ctive as of this encounter Active Problems Problem Noted Date SYST LUPUS ERYTHEMATOSIS as of this encounter Social History Tobacco Use Types Packs/Day Years Used Date Never Smoker Alcohol Use Drinks/Week oz/Week Comments Yes 4 glasses a yr Sex Assigned at Date Recorded Not on file as of this encounter Plan of Treatment Upcoming Encounters Date Type Specialty Care Team Description 11/30/2017 Office Visit [facility] [address] [phone] Health Maintenance Due Date Last Done Comments TETANUS EVERY 10 YRS-TDAP (B OOSTRIX/ADACEL) SUGGESTED IF NOT RECEIVED IN PAST 1984 PAP SMEAR-EVERY 3 YRS,AGES 21-65 1987 BREAST CANCER SCREENING DISCUSSION YEARLY AGES 40-75 1 10/08/2005 DIABETES SCREEN EVERY 3 YRS-AGE 45 AND ABOVE 1 LIPID SCREEN EVERY 5 YRS-WOMEN AGE 45-75 2011 COLONOSCOPY-EVERY 10 YRS AGES 50-75 2016 Influenza Vaccine (FLU shot) (#1) 2017 as of this encounter Implants Not on fileas of this encounter
--- OUTSIDE RECORDS SUMMARY | 2023-05-26 10:22 | External Medical Summary | Summary of Care ---
Author Name Unknown Organization [place] [address] Phone Care Team Providers Care Acquisition Editor Name Role Phone Christiano Sutherland Attilio DO Primary Care Provider Reason for Visit * Reason Comments FOLLOW UP Patient has noticed an improvement with Doxycycline. She has not had any large cystic acne and the gel is helping the itch. Encounter Details Date Type Department Care Team Description 02/21/2018 Office Visit Dermatology [facility] [address] [place] [address] Sita Sainz MD [address] [place] [address] [phone] Acne excoriee* Allergies Active Allergy Reactions Severity Noted Date Comments Cephalexin Anaphylaxis High Other Allergy (See Comments) 018 THIMERSOL Sulfa Antibiotics 11/04/2000 as of this encounter Medications Prescription Sig. Disp. Refills Start Date End Date Status spironolactone (ALDACTONE) 50 MG Tablet Take by mouth 2 times a day. Active MedroxyPROGESTERone Acetate 5 MG TABS Take by mouth daily. For 12 days 11/23/2014 Active fluticasone-salmeterol (ADVAIR DISKUS) 100-50 MCG/DOSE inhaler Inhale by mouth. 11/03/2013 Ac tive nystatin-triamcinolone (MYCOLOG) 318294-2.1 UNIT/GM-% ointment 2 times a day. 03/27/2011 Ac tive Doxycycline Monohydrate 100 MG CapsuleIndications:Acn e excoriee Take 1 Cap by mouth daily. [...] 500 mg by mouth. 3X daily Active as of this encounter Active Problems Problem Noted Date SYST LUPUS ERYTHEMATOSIS as of this encounter Social History Tobacco Use Types Packs/Day Years Used Date Never Smoker Smokeless Tobacco: Never Used Alcohol Use Drinks/Week oz/Week Comments Yes 4 glasses a yr Sex Assigned at Date Recorded Not on file as of this encounter Progress Notes * Sita Sainz MD - 02/21/2018 4:15 PM EDT Formatting of this note may be different from the original. SUBJECTIVE: HPI: Zulma Larson is a 52 year old female. Follow Up: Acne excoriee Treated with Doxy 100mg daily, clindamycin gel She states much improvement, no GI or STENOTYPIST issues with Doxy She states less itching, less picking and is pleased with improvement History: Pt states an acne type rash on [...] hard bumps and pimples that she drains REVIEW OF SYSTEMS: SKIN: No other new or changing moles. HEME/LYMPH: No new or enlarging lumps or bumps. CONSTITUTIONAL: No nausea, vomiting, fevers, chills, diarrhea. No recent unintended weight loss, night sweats, appetite or malaise. Past Medical History: Diagnosis Date Systemic lupus erythematosus (HCC) FAMILY HISTORY: Skin CA: None Skin Disorders: none SOCIAL HISTORY: Social History Substance Use Topics Smoking status: Never Smoker Smokeless tobacco: Never Used Alcohol use Yes Comment: 4 glasses a yr MEDICA TIONS: Current Outpatient Prescriptions Medication Sig Dispense Refill Clindamycin Phosphate 1 % gel Apply topically to affected area 2 times a day. apply to affectedarea on the face, shoulders and arms 60 g 2 Doxycycline Monohydrate 100 MG Capsule Take 1 Cap by mouth daily. 30 Cap 3 fluticasone-salmeterol (ADVAIR DISKUS) 100-50 MCG/DOSE inhaler Inhale by mouth. lisinopril (PRINIVIL) 10 MG Tablet Take 10 mg by mouth daily. MedroxyPROGESTERone Acetate 5 MG TABS Take by mouth daily. For 12 days metFORMIN (GLUCOPHAGE) 500 MG Tablet Take 500 mg by mouth. 3X daily nystatin-triamcinolone (MYCOLOG) 614253-5.1 UNIT/GM-% ointment 2 times a day. spironolactone (ALDACTONE) 50 MG Tablet Take by mouth 2 times a day. venlafaxine (EFFEXOR) 75 MG Tablet Take 75 mg by mouth 2 times a day. ALLERG Y: Cephalexin; Other allergy (see comments); and Sulfa antibiotics OBJECTIVE: GEN: Healthy, alert, no distress, appears oriented, pleasant and cooperative. SKIN: Detailed exam of hair, face including lids and lips, neck, chest, abdomen, back, bilateral upper ext. (arm, hand, fingers) and bilateral lower ext. (leg, foot, toes) completed and are normal except: 1. Face, upper back and shoulders Few inflammatory papules and open sores with background of post-inflammatory hyperpigmentation ASSESS MENT/PLAN: 1. (L70.5) Acne excoriee (primary encounter diagnosis) Plan: improved Continue Doxycycline Monohydrate 100 MG Capsule, Clindamycin Phosphate [...] least 30 minutes. Continue - salicylic acid for scalp - add dove soap to face Discussed at length with patient - sun screen at post-inflammatory hyperpigmentation Follow-up: 3 months There were no barriers tolearning and no other pain was related to today's visit. The patient and/or person accompanying patient demonstrates understanding of the visit and treatment. Russell Sainz MD 02/21/2018 4:16 PM Ref: SELF[[id number]] [address] ADDRESS AVAILABLE None (office) None (fax) PCP: CHRISTIANO SUTHERLAND ATTALVIN [address] [place] [address] [place] [address] [phone] in this encounter Nursing Notes * Lori Tracy OSA - 02/21/2018 4:09 PM EDT Formatting of this note may be different from the original. Last Office Visit: 12/01/2017 Do you have any concerns about pain management for today's visit? No Living Will or Advance Directive for Health Care as noted on problem list. My [facility] is a way you can talk to your provider on line through e-mail. Would you like to sign up? I can activate it for you? Chief Complaint Patient presents with FOLLOW UP Patient has noticed an improvement with Doxycycline. She has not had any large cystic acne and the gel is helping the itch. in this encounter Plan of Treatment Health [...] AND OVER 11/18 Influenza Vaccine (FLU shot) (Season Ended) 2018 as of this encounter Implants Not on fileas of this encounter Visit Diagnoses Diagnosis Acne excoriee - Primary Other acne in this encounter
--- NOTE | 2023-05-28 11:25 | Coding Query ---
CODING QUERY To promote full compliance with coding requirements relating to patient care, provider participation is requested in all cases of certified medical coder uncertainty. Please assist us with the question(s) below: Coding Question(s): There is documentation in the record of possible bowel ischemia, and as on the 05/25 Progress Note and Discharge Summary of, "the cecum was ischemic". Please specify below, in your clinical opinion, regarding the Ischemic Cecum: (X ) Most likely Acute Ischemia of Cecum ( ) Most likely Chronic Ischemia of Cecum ( ) Most likely Other: Please Specify Physician's Response(s): Thank you Betty Taylor Principal Diagnosis: "that condition established after study, to be chiefly responsible for occasioning the admission of the patient to the hospital for care." Co-Existing Principal Diagnosis: "when two or more diagnoses equally meet the criteria for principal diagnosis as determined by the circumstances of admission, diagnostic work up, and/or therapy provided, and the Alphabetic Index, Tabular List, or another coding guideline does not provide sequencing direction, any one of the diagnoses may be sequenced first." "When the physician has documented what appears to be a current diagnosis in the body of the record, but has not included the diagnosis in the final diagnostic statement, the physician should be asked whether the diagnosis should be added." (Source Coding Clinic 2 QTR90. p3-4) CINDY
== END 2023-05-25 11:42 | disposition home or self-care (01) | DRG 329 ==
LOC: ED 20:43 → OR 05-20 01:30 → 3N 05-20 04:11